=== PATIENT | female | born 1940 | race Caucasian/White ===

== ENCOUNTER 2020-09-23 05:09 | Inpatient (IN) | payer MEDICARE, OTHER ==
[2020-09-23] MEDS ORDERED: LABETALOL 5 MG/ML VIAL MDV IVP STA (05:47)
[2020-09-23 06:15] LABS: Basophils # (A) 0.1 k/uL (0-0.2); Basophils % (A) 1 %; Eosinophils # (A) 0.3 k/uL (0-0.7); Eosinophils % (A) 4 %; HCT 36.3 % (34.0-46.0); HGB 12.7 gm/dL (11.4-16.0); Lymphocytes # (A) 1.3 k/uL (1.0-4.8); Lymphocytes % (A) 19 %; MCH 33.5 pg (25.0-35.0); MCHC 35.1 g/dL (31.0-37.0); MCV 95.5 fL (80.0-100.0); Mean Platelet Volume 9.3; Monocytes # (A) 0.4 k/uL (0-1.0); Monocytes % (A) 5 %; Neutrophils % (A) 71 %; Platelet Count 173 k/uL (150-450); RDW 13.1 % (11.5-15.5); WBC 7.1 k/uL (3.8-10.6)
[2020-09-23] MEDS ORDERED: DILTIAZEM DRIP BOLUS FROM BAG 1 MG SOLN IV ONE (06:18)
--- NOTE | 2020-09-23 06:19 | XR ---
EXAMINATION TYPE: XR chest 2V DATE OF EXAM: 09/23/2020 COMPARISON: NONE HISTORY: Difficulty in breathing. TECHNIQUE: Frontal and lateral views of the chest are obtained. FINDINGS: There is background Chronic emphysematous change with increased multifocal opacities bilat erally greatest in the lower lungs and periphery left lung. No pleural effusion or pneumothorax seen bilaterally. The cardiac silhouette size is upper limits of normal. Surgical change bilateral should ers is partially imaged. Bridging osteophytes thoracic spine noted. IMPRESSION: Chronic changes with bilateral multifocal acute infiltrates. Correlate for covid 19 infe ction.
[2020-09-23 06:27] LABS: Albumin 3.9 g/dL (3.5-5.0); Calcium 9.9 mg/dL (8.4-10.2); Magnesium 1.7 mg/dL (1.6-2.3); Potassium 4.4 mmol/L (3.5-5.1); Total Protein 7.3 g/dL (6.3-8.2)
[2020-09-23] MEDS ORDERED: DILTIAZEM 125 MG in SODIUM CHLORIDE 0.9% 100 ML IV SCH (06:30)
--- NOTE | 2020-09-23 06:38 | ED ---
SOB HPI - General Chief Complaint: Abdominal Pain Stated Complaint: Abd Pain Time Seen by Provider: 09/23/20 05:26 Source: patient, family Mode of arrival: ambulatory Limitations: no limitations - History of Present Illness Initial Comments: This patient is an 80-year-old woman who presents to be evaluated for shortness of breath. Patient states that it had been mild for couple of days and then became more severe over the course of tonight. She states she does have underlying history of COPD. She has a little bit of nonproductive cough she states not different than usual. No fever or chills. No chest pain. No leg pain or swelling. In the triage area she had also describes some burning abdominal discomfort and when I asked her about this she indicates the abdominal wall pointing to where she has obviously had some subcutaneous injections. She states that she had been in the hospital from early August until September 09 for a mild stroke. MD Complaint: shortness of breath -: days(s) Severity scale (1-10): 0 Consistency: constant Improves With: nothing Worsens With: nothing Known History Of: COPD Treatments Prior to Arrival: none - Related Data Allergies Allergy/AdvReac Type Severity Reaction Status Date / Time No Known Allergies Allergy Verified 09/23/20 05:17 Review of Systems ROS Statement: Those systems with pertinent positive or pertinent negative responses have been documented in the HPI. ROS Other: All systems not noted in ROS Statement are negative. Constitutional: Denies: fever, chills, weakness Respiratory: Reports: cough, dyspnea, wheezes. Denies: hemoptysis, stridor Cardiovascular: Denies: chest pain, palpitations, orthopnea, edema, syncope Gastrointestinal: Reports: as per HPI, abdominal pain. Denies: nausea, vomiting, diarrhea, constipation, melena, hematochezia Genitourinary: Denies: dysuria, hematuria, discharge Musculoskeletal: Denies: back pain Skin: Denies: rash Neurological: Denies: headache, weakness, numbness, paresthesias Past Medical History Past Medical History: CVA/TIA, Hypertension History of Any Multi-Drug Resistant Organisms: None Reported Past Surgical History: Joint Replacement, Orthopedic Surgery Past Psychological History: No Psychological Hx Reported Smoking Status: Never smoker Past Alcohol Use History: Occasional Past Drug Use History: None Reported General Exam Limitations: no limitations General appearance: alert, in no apparent distress Head exam: Present: atraumatic, normocephalic Eye exam: Present: normal appearance. Absent: scleral icterus, conjunctival injection Neck exam: Present: normal inspection, full ROM Respiratory exam: Present: normal lung sounds bilaterally. Absent: respiratory distress, wheezes, rales, rhonchi, stridor, accessory muscle use, decreased breath sounds, prolonged expiratory Cardiovascular Exam: Present: tachycardia, irregular rhythm, normal heart sounds. Absent: systolic murmur, diastolic murmur, rubs, gallop GI/Abdominal exam: Present: soft, other (There are areas of ecchymosis consistent with previous subcutaneous injection in the abdominal wall. These are minimally tender. There is no deep tenderness.). Absent: distended, tenderness, guarding, rebound, rigid, mass Extremities exam: Present: normal inspection, normal capillary refill. Absent: pedal edema, calf tenderness Back exam: Present: normal inspection. Absent: CVA tenderness (R), CVA tenderness (L) Neurological exam: Present: alert Skin exam: Present: warm, dry, intact, normal color. Absent: rash Course Vital Signs 09/23/20 09/23/20 09/23/20 05:09 05:58 06:14 Temperature 98.4 F Pulse Rate 122 H 118 H 125 H Respiratory 26 H 18 18 Rate Blood Pressure 185/124 124/92 136/92 O2 Sat by Pulse 97 95 95 Oximetry Medical Decision Making - Lab Data Result diagrams: 09/23/20 05:55 09/23/20 05:55 Lab Results 09/23/20 09/23/20 09/23/20 Range/Units 05:55 05:55 05:55 WBC 7.1 (3.8-10.6) k/uL RBC 3.80 (3.80-5.40) m/uL Hgb 12.7 (11.4-16.0) gm/dL Hct 36.3 (34.0-46.0) % MCV 95.5 (80.0-100.0) fL MCH 33.5 (25.0-35.0) pg MCHC 35.1 (31.0-37.0) g/dL RDW 13.1 (11.5-15.5) % Plt Count 173 (150-450) k/uL MPV 9.3 Neutrophils % 71 % Lymphocytes % 19 % Monocytes % 5 % Eosinophils % 4 % Basophils % 1 % Neutrophils # 5.0 (1.3-7.7) k/uL Lymphocytes # 1.3 (1.0-4.8) k/uL Monocytes # 0.4 (0-1.0) k/uL Eosinophils # 0.3 (0-0.7) k/uL Basophils # 0.1 (0-0.2) k/uL Sodium 138 (137-145) mmol/L Potassium 4.4 (3.5-5.1) mmol/L Chloride 107 (98-107) mmol/L Carbon Dioxide 23 (22-30) mmol/L Anion Gap 8 mmol/L BUN 13 (7-17) mg/dL Creatinine 0.92 (0.52-1.04) mg/dL Est GFR (CKD-EPI)AfAm 68 (>60 ml/min/1.73 sqM) Est GFR (CKD-EPI)NonAf 59 (>60 ml/min/1.73 sqM) Glucose 141 H (74-99) mg/dL Plasma Lactic Acid Buck 1.8 (0.7-2.0) mmol/L Calcium 9.9 (8.4-10.2) mg/dL Magnesium 1.7 (1.6-2.3) mg/dL Total Bilirubin 1.0 (0.2-1.3) mg/dL AST 51 H (14-36) U/L ALT 55 H (4-34) U/L Alkaline Phosphatase 63 (38-126) U/L Troponin I (0.000-0.034) ng/mL NT-Pro-B Natriuret Pep pg/mL Total Protein 7.3 (6.3-8.2) g/dL Albumin 3.9 (3.5-5.0) g/dL Coronavirus (PCR) (Not Detectd) 09/23/20 09/23/20 09/23/20 Range/Units 05:55 05:55 06:04 WBC (3.8-10.6) k/uL RBC (3.80-5.40) m/uL Hgb (11.4-16.0) gm/dL Hct (34.0-46.0) % MCV (80.0-100.0) fL MCH (25.0-35.0) pg MCHC (31.0-37.0) g/dL RDW (11.5-15.5) % Plt Count (150-450) k/uL MPV Neutrophils % % Lymphocytes % % Monocytes % % Eosinophils % % Basophils % % Neutrophils # (1.3-7.7) k/uL Lymphocytes # (1.0-4.8) k/uL Monocytes # (0-1.0) k/uL Eosinophils # (0-0.7) k/uL Basophils # (0-0.2) k/uL Sodium (137-145) mmol/L Potassium (3.5-5.1) mmol/L Chloride (98-107) mmol/L Carbon Dioxide (22-30) mmol/L Anion Gap mmol/L BUN (7-17) mg/dL Creatinine (0.52-1.04) mg/dL Est GFR (CKD-EPI)AfAm (>60 ml/min/1.73 sqM) Est GFR (CKD-EPI)NonAf (>60 ml/min/1.73 sqM) Glucose (74-99) mg/dL Plasma Lactic Acid Buck (0.7-2.0) mmol/L Calcium (8.4-10.2) mg/dL Magnesium (1.6-2.3) mg/dL Total Bilirubin (0.2-1.3) mg/dL AST (14-36) U/L ALT (4-34) U/L Alkaline Phosphatase (38-126) U/L Troponin I <0.012 (0.000-0.034) ng/mL NT-Pro-B Natriuret Pep 3650 pg/mL Total Protein (6.3-8.2) g/dL Albumin (3.5-5.0) g/dL Coronavirus (PCR) Not Detected (Not Detectd) - EKG Data -: EKG Interpreted by Nv EKG shows normal: axis (Normal), intervals (Normal), QRS complexes (Normal) Rate: tachycardia (Rate approximately 128 bpm) Interpretation: nonspecific ST-T wave changes, other (Underlying rhythm appears to be atrial fibrillation with rapid ventricular rate.) Disposition Clinical Impression: Atrial fibrillation with rapid ventricular response, CHF (congestive heart failure) Narrative: New diagnosis Disposition: ADMITTED IP TO THIS HOSP Condition: Good Is patient prescribed a controlled substance at d/c from ED?: No Referrals: Jaky Sheridan MD [Primary Care Provider] - 1-2 days
[2020-09-23] MEDS ORDERED: NITROGLYCERIN SL TABS 0.4 MG TAB SUBLINGUAL PRN (06:43)
[2020-09-23 07:29] LABS: Prothrombin Time 10.5 sec (9.0-12.0)
[2020-09-23 07:52] LABS: Partial Thromboplastin Time 18.3 sec (22.0-30.0)
[2020-09-23 07:54] LABS: D-Dimer 0.76 mg/L FEU (<0.60)
[2020-09-23 08:05] LABS: Appearance,Urine Clear (Clear); Bacteria,Urine Rare /hpf; Bilirubin,Urine Negative (Negative); Blood,Urine Negative (Negative); Color,Urine Yellow; Glucose,Urine (UA) Negative (Negative); Ketones,Urine Negative (Negative); Leukocyte Esterase,Urine Moderate (Negative); Nitrite,Urine Negative (Negative); PH, Urine 6.5 (5.0-8.0); Protein,Urine Trace (Negative); Specific Gravity,Urine 1.006 (1.001-1.035); Squamous Epithelial Cell,Urine 1 /hpf (0-4); Urobilinogen,Urine <2.0 mg/dL (<2.0); WBC,Urine 1 /hpf (0-5)
[2020-09-23] MEDS ORDERED: LOSARTAN 50 MG TAB PO SCH (10:00)
[2020-09-23] MEDS: APIXABAN 5 MG TAB PO SCH ×2 (11:05→20:30)
[2020-09-23] MEDS: METOPROLOL TARTRATE 50 MG TAB PO SCH ×2 (11:05→20:30)
--- NOTE | 2020-09-23 11:21 | ECHOF ---
Referral Reason:New a. fib. with CHF MEASUREMENTS -------- HEIGHT: 149.9 cm WEIGHT: 80.7 kg BP: 152/87 RVIDd: 2.9 cm (< 3.3) IVSd: 1.4 cm (0.6 - 1.1) LVIDd: 3.7 cm (3.9 - 5.3) LVPWd: 1.3 cm (0.6 - 1.1) IVSs: 1.8 cm LVIDs: 2.9 cm LVPWs: 1.5 cm LA Diam: 4.0 cm (2.7 - 3.8) LAESV Index (A-L): 34.20 ml/m Ao Diam: 2.7 cm (2.0 - 3.7) AV Cusp: 1.9 cm (1.5 - 2.6) MV EXCURSION: 17.838 mm (> 18.000) MV EF SLOPE: 67 mm/s (70 - 150) EPSS: 0.8 cm RAP: 5.00 mmHg RVSP: 44.19 mmHg FINDINGS -------- Atrial fibrillation. This was a technically adequate study. The left ventricular size is normal. There is moderate concentric left ventricular hypertrophy. O verall left ventricular systolic function is moderately impaired with, an EF between 35 - 40 %. The right ventricle is normal in size. LA is moderately dilated 34-39 ml/m2 The right atrium is normal in size. Interatrial and interventricular septum intact. The aortic valve is trileaflet and appears structurally normal. Mild mitral annular calcification present. Mild mitral regurgitation is present. Mild tricuspid regurgitation present. There is mild pulmonary hypertension. The right ventricular systolic pressure, as measured by Doppler, is 44.19mmHg. Trace/mild (physiologic) pulmonic regurgitation. The aortic root size is normal. Normal inferior vena cava with normal inspiratory collapse consistent with estimated right atrial pre ssure of 5 mmHg. There is no pericardial effusion. CONCLUSIONS -------- 1. The left ventricular size is normal. 2. There is moderate concentric left ventricular hypertrophy. 3. Overall left ventricular systolic function is moderately impaired with, an EF between 35 - 40 %. 4. LA is moderately dilated 34-39 ml/m2 5. Mild mitral annular calcification present. 6. Mild mitral regurgitation is present. 7. Mild tricuspid regurgitation present. 8. There is mild pulmonary hypertension. 9. The right ventricular systolic pressure, as measured by Doppler, is 44.19mmHg. 10. Trace/mild (physiologic) pulmonic regurgitation. 11. There is no pericardial effusion. 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
--- NOTE | 2020-09-23 11:25 | CONS ---
CONSULTATION Mrs. Willoughby is an 80-year-old female with known history of hypertension who presented with abdominal discomfort. In the emergency room, she was noted to be in atrial fibrillation. The patient was recently admitted to [facility] with discomfort behind her right eye and was told that she had a stroke. It appears that she was in atrial fibrillation because she was getting abdominal injection for anticoagulation, probably Lovenox or heparin and was told that she was to go home on Eliquis, but was never prescribed. Her main complaint is the discomfort in the abdomen. She also complains of dyspnea on exertion that is getting worse. She was told that she has emphysema, although she never smoked. She has history of allergy. She denies any history of cardiac disease. She has occasional palpitation. No syncope. She has some palpitation. She has no PND, orthopnea, rare peripheral edema. She has not been seen by Cardiology in the recent past and has not had any recent cardiac workup. Her coronary risk factors are remarkable for hypertension. She is nonsmoker, nondiabetic. Her lipid profile is not available. MEDICATIONS: Her medications include hydrochlorothiazide, verapamil 240 mg daily, losartan 100 mg daily and gabapentin. REVIEW OF SYSTEMS: RESPIRATORY SYSTEM: She has dyspnea on exertion. She has a history of cough. GI SYSTEM: She has no recent GI bleeding. No peptic ulcer disease. SYSTEM: She has the possible history of stroke as noted. PHYSICAL EXAMINATION: She is an 80-year-old female, alert, oriented, in no apparent distress. Blood pressure running in the 150s over 90s with the heart rate in the low 100. HEAD: Normocephalic. EYES: Sclerae anicteric. NECK: Good carotid upstroke. No bruit. No jugular venous distention. LUNGS: Clear to auscultation. HEART: Irregular, irregular, S1, S2. No S3. No rub or gallop appreciated. ABDOMEN: Soft, nontender. Positive bowel sounds. No organomegaly. Ecchymosis noted at the site of prior injection. EXTREMITIES: Trace edema. LAB DATA: Lab data revealed troponin less than 0.012. BUN and creatinine of 13 and 0.92. Potassium 4.4. D-dimer 0.76. Hemoglobin 12.7. NT proBNP of 3650. EKG revealed an atrial fibrillation with rate [address]-T wave changes. Chest x-ray shows bilateral infiltrate. IMPRESSION: 1. Atrial fibrillation, probably not acute. Most likely was diagnosed recently at [place] although the records are not available. The patient not anticoagulated at this time. 2. Possible recent stroke. 3. History of hypertension. 4. Progressive dyspnea. 5. Elevation of the NT proBNP. RECOMMENDATION: From the cardiac standpoint, I will initiate treatment with anticoagulation. I will obtain echocardiogram with Doppler. I will start her on IV Lasix and restart losartan and I will also start her on a beta amrik. I will try to obtain the records from [facility] and depending on the results of testing, further recommendation will be made. Thank you for this consult. We will follow with you. MMJOSE FL / IJN: [id number] /
[2020-09-23] MEDS: ACETAMINOPHEN TAB 325 MG TAB PO PRN (12:17)
[2020-09-23] MEDS: FUROSEMIDE 10 MG/ML 2 ML VIAL IV SCH ×2 (14:56→20:33)
--- NOTE | 2020-09-23 22:18 | P.HPIM ---
History of Present Illness H&P Date: 09/23/20 Chief Complaint: short of breath History of presenting complaint: This is a pleasant 80-year-old patient of Dr. Sheridan. Patient presents with shortness of breath. No edema. Putting out clear mucus. Denies any fever and chills. Also complaining of irregular heartbeat. No chest pain. Patient was recently no [facility]. Diagnosis unclear. No orthopnea. Denies any dizziness or lightheadedness. Review of systems: GEN.: Tired EYES: None HEENT: None NECK: None RESPIRATORY: As above CARDIOVASCULAR: As above GASTROINTESTINAL: None GENITOURINARY: None MUSCULOSKELETAL: Joint pains LYMPHATICS: None HEMATOLOGICAL: None PSYCHIATRY: None NEUROLOGICAL: Trouble sleeping Past medical history to include: Hypertension, osteoarthritis, insomnia Social history: No smoking. Alcohol occasionally. Lives alone. Family history: Reviewed, noncontributory to presentation Physical examination: VITAL SIGNS: 98.4, 122, 26, 124/92, 97% on room air GENERAL: BMI 36, sitting up in bed, bit tired. EYES: Pupils equal. Conjunctiva normal. HEENT: External appearance of nose and ears normal, oral cavity grossly normal. NECK: JVD not raised; masses not palpable. HEART: Heart sounds irregular; no edema. LUNGS: Respiratory rate increased, decreased breath sounds. ABDOMEN: Soft, nontender, liver spleen not palpable, no masses palpable. PSYCH: Alert and oriented x3; mood and affect normal MUSCULAR skeletal: Evidence of OA. NEUROLOGICAL: Cranial nerves grossly intact; no facial asymmetry, power and sensation grossly intact. LYMPHATICS: No lymph nodes palpable in the axilla and neck INVESTIGATIONS, reviewed in the clinical context: White count 7.1 hemoglobin 12.7 platelets 173 potassium 4.4 creatinine 0.9 to AST 51 ALT 55 Troponin I less than 0.0122 ProBNP 3650 TSH 1.3 Coronavirus PCR-not detected EKG tracing personally reviewed by me-atrial flutter fibrillation with a rate of 128 Chest x-ray film personally reviewed by me-cardiomegaly with venous prominence 2-D echocardiogram-moderate concentric LVH, EF 35 and 40% Assessment: -New onset atrial fibrillation with a rapid ventricle rate -Acute congestive heart failure from systolic dysfunction EF 35-40% with a possible contribution from atrial fibrillation -Hypertensive heart disease Plan: Patient is put on a Cardizem drip in the ER. Home medications resumed. Started on beta amrik this morning. Also put on IV Lasix. Care was discussed with the patient and questions answered. At some point down the road patient needed cardiac catheterization to evaluate systolic dysfunction. Cardiology consulted. Past Medical History Past Medical History: CVA/TIA, Hypertension Additional Past Medical History / Comment(s): DC'd from [facility] for Stroke on 09/09 History of Any Multi-Drug Resistant Organisms: None Reported Past Surgical History: Joint Replacement, Orthopedic Surgery Past Anesthesia/Blood Transfusion Reactions: No Reported Reaction Past Psychological History: No Psychological Hx Reported Smoking Status: Never smoker Past Alcohol Use History: Occasional Past Drug Use History: None Reported - Past Family History Mother Family Medical History: No Reported History Father Family Medical History: No Reported History Medications and Allergies Home Medications Medication Instructions Recorded Confirmed Type Gabapentin [Neurontin] 100 mg PO BID PRN 09/23/20 09/23/20 History Losartan Potassium 100 mg PO DAILY 09/23/20 09/23/20 History Verapamil Sr [Isoptin Sr] 240 mg PO DAILY 09/23/20 09/23/20 History hydroCHLOROthiazide [Hydrodiuril] 25 mg PO DAILY 09/23/20 09/23/20 History Allergies Allergy/AdvReac Type Severity Reaction Status Date / Time codeine AdvReac Vision Verified 09/23/20 08:03 Disturbance Physical Exam Vitals: Vital Signs Temp Pulse Pulse Resp BP BP Pulse Ox 09/23/20 09:00 98.2 F 103 H 20 156/99 95 09/23/20 07:38 98.6 F 105 H 20 152/87 95 09/23/20 07:05 97 18 152/87 95 09/23/20 06:14 125 H 18 136/92 95 09/23/20 05:58 118 H 18 124/92 95 09/23/20 05:09 98.4 F 122 H 26 H 185/124 97 Intake and Output 09/22/20 09/23/20 09/23/20 22:59 06:59 14:59 Intake Total 236 Balance 236 Intake: Oral 236 Other: Weight 80.921 kg 80.921 kg Results CBC & Chem 7: 09/23/20 05:55 09/23/20 05:55 Labs: Abnormal Lab Results - Last 24 Hours (Table) 09/23/20 09/23/20 09/23/20 Range/Units 05:55 06:33 07:51 APTT 18.3 L (22.0-30.0) sec D-Dimer 0.76 H (<0.60) mg/L FEU Glucose 141 H (74-99) mg/dL AST 51 H (14-36) U/L ALT 55 H (4-34) U/L Urine Protein Trace H (Negative) Ur Leukocyte Esterase Moderate H (Negative) Urine Bacteria Rare H (None) /hpf Thrombosis Risk Factor Assmnt - Choose All That Apply Any of the Below Risk Factors Present?: Yes Each Factor Represents 1 point: Obesity (BMI >25) Each Risk Factor Represents 3 Points: Age 75 years or older Thrombosis Risk Factor Assessment Total Risk Factor Score: 4 Thrombosis Risk Factor Assessment Level: Moderate Risk
[2020-09-24] MEDS: ACETAMINOPHEN TAB 325 MG TAB PO PRN (03:57)
[2020-09-24] MEDS ORDERED: ASPIRIN 325 MG TAB PO SCH (09:00)
[2020-09-24] MEDS: METOPROLOL TARTRATE 50 MG TAB PO SCH ×3 (09:11→20:33)
[2020-09-24] MEDS: LOSARTAN 50 MG TAB PO SCH (09:11)
[2020-09-24] MEDS: hydroCHLOROthiazide 25 MG TAB PO SCH (09:12)
[2020-09-24] MEDS: APIXABAN 5 MG TAB PO SCH ×2 (09:12→20:33)
[2020-09-24 09:29] LABS: Calcium 9.8 mg/dL (8.4-10.2)
--- NOTE | 2020-09-24 09:50 | PN ---
PROGRESS NOTE Mrs. Willoughby is an 80-year-old female who presented with symptoms of dyspnea and abdominal discomfort. She was in atrial fibrillation. After reviewing the EKG from [facility], it was noted that she was in atrial fibrillation at that time. She denies any chest discomfort. She denies any dizziness. Her breathing is stable. She had an echocardiogram done yesterday that showed an ejection fraction of 35% to 40% of unknown duration. Patient has no recollection of prior cardiac history. She is feeling well this morning. She denies any chest pain. She denies any dizziness or palpitation. She denies any nausea. She continues to be in atrial fibrillation with episode of rapid ventricular response. She continued to be on Eliquis 5 mg twice a day, Lasix 20 mg IV q.12 hours, losartan 50 mg daily, and metoprolol tartrate 50 mg twice a day. PHYSICAL EXAMINATION: Blood pressure running in the 150s with the heart rate in the high 90s to low 100s. LUNGS: Clear. HEART: Irregular, irregular. S1, S2. No S3. No rub. ABDOMEN: Soft, nontender. EXTREMITIES: No edema. LAB DATA: Lab data from this morning are pending. IMPRESSION: 1. Atrial fibrillation was diagnosed on recent admission at [facility]. 2. Possible cerebrovascular accident during that admission. 3. Hypertension. 4. Cardiomyopathy of unclear duration or etiology. 5. Abdominal pain, probably related to the subcutaneous injections. RECOMMENDATION: From the cardiac standpoint, I will stop the IV Lasix and start hydrochlorothiazide on her, increase the dose of her losartan and metoprolol. Increase her level of activity. She remains stable. I would expect she should be able to be discharged home in the next 24 hours. MMODL / IJN: [id number] /
--- NOTE | 2020-09-24 16:11 | CDI ---
Documentation Clarification Form Date: 09/24/2020 03:54:04 PM From: Hailey Delgado RN, CCDS Admit Date: 09/23/2020 06:43:00 AM Patient Name: Huma Willoughby Visit Number: [id number] Discharge Date: ATTENTION: The Clinical Documentation Specialists (CDI) and [facility] Coding Staff appreciate your assistance in clarifying documentation. Please respond to the clarification below the line at the bottom and electronically sign. The CDI & [facility] Coding staff will review the response and follow-up if needed. Please note: Queries are made part of the Legal Health Record. If you have any questions, please contact the author of this message via ITS. Dr. Dolores Matias Atrial Fibrillation is documented in the ED assessment on 09/23, H/P and cardiology consult. Please render your opinion on the type of atrial fibrillation you are treating. History/Risk Factors: CVA, TIA, Hypertension Clinical Indicators: 80-year-old female presents on 09/23 for evaluation for shortness of breath. 09/23 EKG/telemetry: Atrial fibrillation with rapid ventricular response at 128 bpm. 09/23 Vital signs on admission at 05:09 185/124 122 26 98.4 97 % Treatment: Cardizem 10 mg IV bolus Lopressor 50 mg po tid Eliquis 5 mg bid Losartan 100 mg daily In your professional opinion, can you please clarify the type of Atrial Fibrillation, if known? Chronic/Permanent Paroxysmal Persistent XXXX Other, please specify Unable to determine (Last Revision: December 2017) MTDD
--- NOTE | 2020-09-24 21:42 | P.PN ---
Progress Note - Text Progress Note Date: 09/24/20 Chief Complaint: short of breath History of presenting complaint: This is a pleasant 80-year-old patient of Dr. Sheridan. Patient presents with shortness of breath. No edema. Putting out clear mucus. Denies any fever and chills. Also complaining of irregular heartbeat. No chest pain. Patient was recently at [facility]. Diagnosis unclear. No orthopnea. Denies any dizziness or lightheadedness. Admitted with atrial fibrillation with a rapid ventricular rate, acute CHF exacerbations EF of 35-40%. Given IV Lasix. Initially put on IV Cardizem drip. Today-feeling better. Breathing is better. Some clear sputum. Oral intake fair. Review of systems: Was done for constitutional, cardiovascular, GI, pulmonary. relevant finding as above Active Medications Acetaminophen (Acetaminophen Tab 325 Mg Tab) 650 mg PO Q4HR PRN PRN Reason: Fever and/ or Mild Pain Last Admin: 09/24/20 03:57 Dose: 650 mg Documented by: Apixaban (Apixaban 5 Mg Tab) 5 mg PO BID [facility] Last Admin: 09/24/20 20:33 Dose: 5 mg Documented by: Hydrochlorothiazide (Hydrochlorothiazide 25 Mg Tab) 25 mg PO DAILY [facility] Last Admin: 09/24/20 09:12 Dose: 25 mg Documented by: Losartan Potassium (Losartan 50 Mg Tab) 100 mg PO DAILY [facility] Last Admin: 09/24/20 09:11 Dose: 100 mg Documented by: Metoprolol Tartrate (Metoprolol Tartrate 50 Mg Tab) 50 mg PO TID [facility] Last Admin: 09/24/20 20:33 Dose: 50 mg Documented by: Nitroglycerin (Nitroglycerin Sl Tabs 0.4 Mg Tab) 0.4 mg SUBLINGUAL Q5M PRN PRN Reason: Chest Pain Past medical history to include: Hypertension, osteoarthritis, insomnia Social history: No smoking. Alcohol occasionally. Lives alone. Family history: Reviewed, noncontributory to presentation Physical examination: VITAL SIGNS: 97.9, 94, 20, 1 3699, 100% room air GENERAL: BMI 36, sitting up in bed, looking better EYES: Pupils equal. Conjunctiva normal. HEENT: External appearance of nose and ears normal, oral cavity grossly normal. NECK: JVD not raised; masses not palpable. HEART: Heart sounds irregular; no edema. LUNGS: Respiratory rate normal, decreased breath sounds. ABDOMEN: Soft, nontender, liver spleen not palpable, no masses palpable. PSYCH: Alert and oriented x3; mood and affect normal MUSCULAR skeletal: Evidence of OA. INVESTIGATIONS, reviewed in the clinical context: September 24: Potassium 4 creatinine 0.95 LDL 108 White count 7.1 hemoglobin 12.7 platelets 173 potassium 4.4 creatinine 0.9 to AST 51 ALT 55 Troponin I less than 0.0122 ProBNP 3650 TSH 1.3 Coronavirus PCR-not detected EKG tracing personally reviewed by me-atrial flutter fibrillation with a rate of 128 Chest x-ray film personally reviewed by me-cardiomegaly with venous prominence 2-D echocardiogram-moderate concentric LVH, EF 35 and 40% Assessment: -New onset atrial fibrillation with a rapid ventricle rate-now better controlled -Acute congestive heart failure from systolic dysfunction EF 35-40% with a possible contribution from atrial fibrillation-improving -Hypertensive heart disease Plan: Patient started eliquis, Cozaar, Lopressor 50 mg 3 times a day. Discussed with the patient. Encouraged to be out of bed. Check a proBNP in the morning.
[2020-09-25 08:29] LABS: Calcium 9.8 mg/dL (8.4-10.2)
[2020-09-25 08:54] VITALS: TEMP 97.9
[2020-09-25] MEDS: APIXABAN 5 MG TAB PO SCH (08:59)
[2020-09-25] MEDS: hydroCHLOROthiazide 25 MG TAB PO SCH (08:59)
[2020-09-25] MEDS: METOPROLOL TARTRATE 50 MG TAB PO SCH (08:59)
[2020-09-25] MEDS: LOSARTAN 50 MG TAB PO SCH (08:59)
[2020-09-25] MEDS ORDERED: SPIRONOLACTONE 25 MG TAB PO SCH (09:00)
--- NOTE | 2020-09-25 12:00 | PN ---
PROGRESS NOTE Mrs. Willoughby is an 80-year-old female who presented with abdominal pain and evidence of atrial fibrillation that was noted while she was in [facility]. She is feeling well this morning ambulating without difficulty. Her echocardiogram showed evidence of moderate cardiomyopathy with no segmental wall motion abnormality. She has been started on anticoagulation and her ventricular response is under better control. She continued to be on Eliquis 5 mg twice a day, hydrochlorothiazide 25 mg daily, losartan 100 mg daily, metoprolol tartrate 50 mg 3 times a day and spironolactone 25 mg daily. PHYSICAL EXAMINATION: Blood pressure 134/70 with the heart rate in the 90s. LUNGS: Clear. HEART: Irregular, irregular. S1, S2. No S3. No rub. ABDOMEN: Soft, nontender. EXTREMITIES: No edema. LAB DATA: Lab data revealed her NT proBNP down to 2430. Her cholesterol is 170, LDL 108. BUN and creatinine of 14 and 0.94. IMPRESSION: 1. Atrial fibrillation, her rate under better control, anticoagulated. 2. Hypertension. 3. Possible stroke. 4. Cardiomyopathy with evidence of heart failure, improving. RECOMMENDATION: From the cardiac standpoint, she should be able to be discharged home on the present medical regimen and followed as an outpatient to undergo further cardiac workup. MMODL / IJN: [id number] /
[2020-09-25 12:10] VITALS: BP 144/85; PULSE 92; RESP 16
--- NOTE | 2020-09-25 23:55 | P.DS ---
Providers Date of admission: 09/23/20 06:43 Expected date of discharge: 09/25/20 Attending physician: Juan Gaytan Consults: 09/23/20 06:43 Consult Physician Routine Consulting Provider: Lotus Gillespie Consult Reason/Comments: New-onset atrial fibrillation with RVR Do you want consulting provider notified?: Yes Primary care physician: Jaky Sheridan [facility] Course: Chief Complaint: short of breath History of presenting complaint: This is a pleasant 80-year-old patient of Dr. Sheridan. Patient presents with shortness of breath. No edema. Putting out clear mucus. Denies any fever and chills. Also complaining of irregular heartbeat. No chest pain. Patient was recently at [facility]. Diagnosis unclear. No orthopnea. Denies any dizziness or lightheadedness. Admitted with atrial fibrillation with a rapid ventricular rate, acute CHF exacerbations EF of 35-40%. Given IV Lasix. Initially put on IV Cardizem drip. Today-doing much better. Breathing control. Heart rate controlled. Cleared by cardiology Consultation: Dr. Matias from cardiology Past medical history to include: Hypertension, osteoarthritis, insomnia Social history: No smoking. Alcohol occasionally. Lives alone. Family history: Reviewed, noncontributory to presentation Physical examination: VITAL SIGNS: 97.9, 92, 16, 144/85, 97% room air GENERAL: BMI 36, sitting up in bed, comfortable EYES: Pupils equal. Conjunctiva normal. HEENT: External appearance of nose and ears normal, oral cavity grossly normal. NECK: JVD not raised; masses not palpable. HEART: Heart sounds irregular; no edema. LUNGS: Respiratory rate normal, decreased breath sounds. ABDOMEN: Soft, nontender, liver spleen not palpable, no masses palpable. PSYCH: Alert and oriented x3; mood and affect normal MUSCULAR skeletal: Evidence of OA. INVESTIGATIONS, reviewed in the clinical context: September 25: Potassium 4 creatinine 0.94 BNP 2430 September 24: Potassium 4 creatinine 0.95 LDL 108 White count 7.1 hemoglobin 12.7 platelets 173 potassium 4.4 creatinine 0.9 to AST 51 ALT 55 Troponin I less than 0.0122 ProBNP 3650 TSH 1.3 Coronavirus PCR-not detected EKG tracing personally reviewed by me-atrial flutter fibrillation with a rate of 128 Chest x-ray film personally reviewed by me-cardiomegaly with venous prominence 2-D echocardiogram-moderate concentric LVH, EF 35 and 40% Assessment: -New onset atrial fibrillation with a rapid ventricle rate- -Acute congestive heart failure from systolic dysfunction EF 35-40% with a possible contribution from atrial fibrillation- -Hypertensive heart disease Disposition: Home Patient Condition at Discharge: Stable Plan - Discharge Summary Discharge Rx Participant: No New Discharge Prescriptions: New Apixaban [Eliquis] 5 mg PO BID #60 tab Spironolactone [Aldactone] 25 mg PO DAILY #30 tab Metoprolol Tartrate [Lopressor] 50 mg PO TID #90 tab Continue Losartan Potassium 100 mg PO DAILY Gabapentin [Neurontin] 100 mg PO BID PRN PRN Reason: Pain Discontinued hydroCHLOROthiazide [Hydrodiuril] 25 mg PO DAILY Verapamil Sr [Isoptin Sr] 240 mg PO DAILY Discharge Medication List Gabapentin [Neurontin] 100 mg PO BID PRN 09/23/20 [History] Losartan Potassium 100 mg PO DAILY 09/23/20 [History] Apixaban [Eliquis] 5 mg PO BID #60 tab 09/24/20 [Rx] Metoprolol Tartrate [Lopressor] 50 mg PO TID #90 tab 09/25/20 [Rx] Spironolactone [Aldactone] 25 mg PO DAILY #30 tab 09/25/20 [Rx] Follow up Appointment(s)/Referral(s): Dolores Matias MD [STAFF PHYSICIAN] - 2 Weeks (Office will call you in the next day or two to schedule an appointment.) Jaky Sheridan MD [Primary Care Provider] - 1-2 days Patient Instructions/Handouts: A-fib (Atrial Fibrillation) (DC) Activity/Diet/Wound Care/Special Instructions: pts 30 day copy for Eliquis is $4 bmp - 1 week Discharge Disposition: HOME WITH HOSPICE
== END 2020-09-25 14:53 | disposition home or self-care (01) | DRG 291 ==
LOC: EC 05:09 → 3SCARD 06:43
PROVIDERS: ADMIT Hospitalist; ATTEND Hospitalist
DX: I11.0 Hypertensive heart disease with heart failure (principal); I50.21 Acute systolic (congestive) heart failure; I48.19 Other persistent atrial fibrillation; I48.92 Unspecified atrial flutter; I42.9 Cardiomyopathy, unspecified; J43.9 Emphysema, unspecified; Z79.01 Long term (current) use of anticoagulants; Z79.899 Other long term (current) drug therapy; Z86.73 Personal history of transient ischemic attack (TIA), and cerebral infarction without residual deficits; G47.00 Insomnia, unspecified; E66.9 Obesity, unspecified; Z68.37 Body mass index [BMI] 37.0-37.9, adult; Z60.2 Problems related to living alone; Z20.822 Contact with and (suspected) exposure to COVID-19
CPT/HCPCS: 36415; 71046; 80048; 80053; 80061; 81001; 83605; 83735; 83880; 84443; 84484; 85025; 85379; 85610; 85730; 87635; 93005; 93306; 96365; 96376; 99285

== ENCOUNTER 2020-09-28 23:27 | Emergency (ER) | payer MEDICARE, OTHER ==
--- NOTE | 2020-09-28 23:48 | ED ---
Arrhythmia/Palpitations HPI - General Chief Complaint: Arrhythmia/Palpitations Stated Complaint: Palpitations, Chest Pain Time Seen by Provider: 09/28/20 23:35 Source: patient, RN notes reviewed, old records reviewed Mode of arrival: wheelchair Limitations: no limitations - History of Present Illness Initial Comments: This is an 80-year-old female DF for evaluation patient Dese for palpitations. Patient recently as an inpatient for hospitalization regarding palpitations H a fibrillation with RVR. He should did stop taking blood pressure medication upon discharge patient is concerned that she was having heart racing and palpitations earlier in the day but upon arrival to the ER she has no complaints. No headache chest pain shortness breath or abdominal pain no recent fevers or shortness of breath MD Complaint: rapid heart beat, "heart racing", palpitations, atrial fibrillation (Patient does have history of atrial fibrillation) -: hour(s) Context: occurred during rest Arrhythmia History: atrial fibrillation Associated Symptoms: denies other symptoms Treatments Prior to Arrival: other (not taking her normal blood pressure medications) - Related Data Home Medications Medication Instructions Recorded Confirmed Gabapentin [Neurontin] 100 mg PO BID PRN 09/23/20 09/23/20 Losartan Potassium 100 mg PO DAILY 09/23/20 09/23/20 Previous Rx's Medication Instructions Recorded Apixaban [Eliquis] 5 mg PO BID #60 tab 09/24/20 Metoprolol Tartrate [Lopressor] 50 mg PO TID #90 tab 09/25/20 Spironolactone [Aldactone] 25 mg PO DAILY #30 tab 09/25/20 Allergies Allergy/AdvReac Type Severity Reaction Status Date / Time codeine AdvReac Vision Verified 09/28/20 23:37 Disturbance Review of Systems ROS Statement: Those systems with pertinent positive or pertinent negative responses have been documented in the HPI. ROS Other: All systems not noted in ROS Statement are negative. Past Medical History Past Medical History: CVA/TIA, Hypertension Additional Past Medical History / Comment(s): DC'd from [facility] for Stroke on 09/09 History of Any Multi-Drug Resistant Organisms: None Reported Past Surgical History: Joint Replacement, Orthopedic Surgery Past Anesthesia/Blood Transfusion Reactions: No Reported Reaction Past Psychological History: No Psychological Hx Reported Smoking Status: Never smoker Past Alcohol Use History: Occasional Past Drug Use History: None Reported - Past Family History Mother Family Medical History: No Reported History Father Family Medical History: No Reported History General Exam Limitations: no limitations General appearance: alert, in no apparent distress Head exam: Present: atraumatic, normocephalic, normal inspection Eye exam: Present: normal appearance, PERRL, EOMI. Absent: scleral icterus, conjunctival injection, periorbital swelling ENT exam: Present: normal exam, mucous membranes moist Neck exam: Present: normal inspection. Absent: tenderness, meningismus, lymphadenopathy Respiratory exam: Present: normal lung sounds bilaterally. Absent: respiratory distress, wheezes, rales, rhonchi, stridor Cardiovascular Exam: Present: regular rate, normal rhythm, normal heart sounds. Absent: systolic murmur, diastolic murmur, rubs, gallop, clicks GI/Abdominal exam: Present: soft, normal bowel sounds. Absent: distended, tenderness, guarding, rebound, rigid Extremities exam: Present: normal inspection, full ROM, normal capillary refill. Absent: tenderness, pedal edema, joint swelling, calf tenderness Back exam: Present: normal inspection Neurological exam: Present: alert, oriented X3, CN II-XII intact Psychiatric exam: Present: normal affect, normal mood Skin exam: Present: warm, dry, intact, normal color. Absent: rash Course Vital Signs 09/28/20 09/29/20 23:32 00:00 Temperature 97.9 F Pulse Rate 95 86 Respiratory 18 20 Rate Blood Pressure 156/102 145/90 O2 Sat by Pulse 96 96 Oximetry - Reevaluation(s) Reevaluation #1: 09/29/20 01:33 Medical record is reviewed Reevaluation #2: 09/29/20 01:33 Prior hospitalizations reviewed Reevaluation #3: 09/29/20 01:33 Patient feels well throughout entire ER stay Reevaluation #4: 09/29/20 01:33 Patient informed results and questions answered she feels good for EKG Findings - EKG Comments: EKG Findings:: EKG is A. fib 99, QRS 68 QTc 469 Medical Decision Making - Medical Decision Making 80 female DF for evaluation patient presents today for palpitations, concern for atrial fibrillation on blood pressure medications. Patient patient medically ER stay labwork is normal patient feels good. She prefers discharge - Lab Data Result diagrams: 09/28/20 23:56 01/11/21 23:56 Lab Results 09/28/20 09/28/20 09/28/20 Range/Units 23:56 23:56 23:56 WBC 5.4 (3.8-10.6) k/uL RBC 3.80 (3.80-5.40) m/uL Hgb 12.6 (11.4-16.0) gm/dL Hct 36.7 (34.0-46.0) % MCV 96.6 (80.0-100.0) fL MCH 33.1 (25.0-35.0) pg MCHC 34.2 (31.0-37.0) g/dL RDW 14.3 (11.5-15.5) % Plt Count 169 (150-450) k/uL MPV 8.9 Neutrophils % 53 % Lymphocytes % 31 % Monocytes % 6 % Eosinophils % 7 % Basophils % 1 % Neutrophils # 2.9 (1.3-7.7) k/uL Lymphocytes # 1.7 (1.0-4.8) k/uL Monocytes # 0.3 (0-1.0) k/uL Eosinophils # 0.4 (0-0.7) k/uL Basophils # 0.1 (0-0.2) k/uL PT 11.2 (9.0-12.0) sec INR 1.1 (<1.2) APTT 23.2 (22.0-30.0) sec Sodium 137 (137-145) mmol/L Potassium 4.0 (3.5-5.1) mmol/L Chloride 106 (98-107) mmol/L Carbon Dioxide 23 (22-30) mmol/L Anion Gap 8 mmol/L BUN 22 H (7-17) mg/dL Creatinine 0.88 (0.52-1.04) mg/dL Est GFR (CKD-EPI)AfAm 72 (>60 ml/min/1.73 sqM) Est GFR (CKD-EPI)NonAf 63 (>60 ml/min/1.73 sqM) Glucose 124 H (74-99) mg/dL Calcium 9.6 (8.4-10.2) mg/dL Magnesium 1.7 (1.6-2.3) mg/dL Total Bilirubin 0.5 (0.2-1.3) mg/dL AST 63 H (14-36) U/L ALT 60 H (4-34) U/L Alkaline Phosphatase 55 (38-126) U/L Creatine Kinase 60 (30-135) U/L Troponin I (0.000-0.034) ng/mL NT-Pro-B Natriuret Pep pg/mL Total Protein 7.1 (6.3-8.2) g/dL Albumin 3.8 (3.5-5.0) g/dL Lipase 261 (23-300) U/L 09/28/20 09/28/20 Range/Units 23:56 23:56 WBC (3.8-10.6) k/uL RBC (3.80-5.40) m/uL Hgb (11.4-16.0) gm/dL Hct (34.0-46.0) % MCV (80.0-100.0) fL MCH (25.0-35.0) pg MCHC (31.0-37.0) g/dL RDW (11.5-15.5) % Plt Count (150-450) k/uL MPV Neutrophils % % Lymphocytes % % Monocytes % % Eosinophils % % Basophils % % Neutrophils # (1.3-7.7) k/uL Lymphocytes # (1.0-4.8) k/uL Monocytes # (0-1.0) k/uL Eosinophils # (0-0.7) k/uL Basophils # (0-0.2) k/uL PT (9.0-12.0) sec INR (<1.2) APTT (22.0-30.0) sec Sodium (137-145) mmol/L Potassium (3.5-5.1) mmol/L Chloride (98-107) mmol/L Carbon Dioxide (22-30) mmol/L Anion Gap mmol/L BUN (7-17) mg/dL Creatinine (0.52-1.04) mg/dL Est GFR (CKD-EPI)AfAm (>60 ml/min/1.73 sqM) Est GFR (CKD-EPI)NonAf (>60 ml/min/1.73 sqM) Glucose (74-99) mg/dL Calcium (8.4-10.2) mg/dL Magnesium (1.6-2.3) mg/dL Total Bilirubin (0.2-1.3) mg/dL AST (14-36) U/L ALT (4-34) U/L Alkaline Phosphatase (38-126) U/L Creatine Kinase (30-135) U/L Troponin I <0.012 (0.000-0.034) ng/mL NT-Pro-B Natriuret Pep 2400 pg/mL Total Protein (6.3-8.2) g/dL Albumin (3.5-5.0) g/dL Lipase (23-300) U/L Disposition Clinical Impression: Atrial fibrillation, Palpitations Disposition: HOME SELF-CARE Condition: Good Instructions (If sedation given, give patient instructions): Heart Palpitations (ED) Is patient prescribed a controlled substance at d/c from ED?: No Referrals: Jaky Sheridan MD [Primary Care Provider] - 1-2 days
[2020-09-29 00:07] LABS: Basophils # (A) 0.1 k/uL (0-0.2); Basophils % (A) 1 %; Eosinophils # (A) 0.4 k/uL (0-0.7); Eosinophils % (A) 7 %; HCT 36.7 % (34.0-46.0); HGB 12.6 gm/dL (11.4-16.0); Lymphocytes # (A) 1.7 k/uL (1.0-4.8); Lymphocytes % (A) 31 %; MCH 33.1 pg (25.0-35.0); MCHC 34.2 g/dL (31.0-37.0); MCV 96.6 fL (80.0-100.0); Mean Platelet Volume 8.9; Monocytes # (A) 0.3 k/uL (0-1.0); Monocytes % (A) 6 %; Neutrophils # (A) 2.9 k/uL (1.3-7.7); Neutrophils % (A) 53 %; Platelet Count 169 k/uL (150-450); RDW 14.3 % (11.5-15.5); WBC 5.4 k/uL (3.8-10.6)
[2020-09-29 00:18] LABS: Albumin 3.8 g/dL (3.5-5.0); Calcium 9.6 mg/dL (8.4-10.2); Magnesium 1.7 mg/dL (1.6-2.3); Total Bilirubin 0.5 mg/dL (0.2-1.3); Total Protein 7.1 g/dL (6.3-8.2)
[2020-09-29 00:32] LABS: INR 1.1 (<1.2); Partial Thromboplastin Time 23.2 sec (22.0-30.0); Prothrombin Time 11.2 sec (9.0-12.0)
[2020-09-29 02:17] VITALS: BP 163/99; PULSE 90; RESP 18; TEMP 98.2
== END 2020-09-29 02:25 | disposition home or self-care (01) ==
LOC: EC 23:27
DX: I48.91 Unspecified atrial fibrillation (principal); I10 Essential (primary) hypertension; Z79.899 Other long term (current) drug therapy; Z88.5 Allergy status to narcotic agent; Z86.73 Personal history of transient ischemic attack (TIA), and cerebral infarction without residual deficits
CPT/HCPCS: 36415; 80053; 82550; 83690; 83735; 83880; 84484; 85025; 85610; 85730; 93005; 99285

== ENCOUNTER 2020-10-02 10:19 | Inpatient (IN) | payer MEDICARE, OTHER ==
[2020-10-02] MEDS ORDERED: DILTIAZEM 5 MG/ML 5 ML VIAL IVP STA (10:38)
[2020-10-02 10:55] LABS: Basophils % (A) 1 %; Eosinophils # (A) 0.3 k/uL (0-0.7); Eosinophils % (A) 4 %; HCT 39.1 % (34.0-46.0); HGB 12.9 gm/dL (11.4-16.0); Lymphocytes # (A) 1.2 k/uL (1.0-4.8); Lymphocytes % (A) 20 %; MCH 32.2 pg (25.0-35.0); MCV 97.7 fL (80.0-100.0); Macrocytosis Slight; Mean Platelet Volume 9.1; Monocytes # (A) 0.4 k/uL (0-1.0); Monocytes % (A) 6 %; Neutrophils # (A) 4.1 k/uL (1.3-7.7); Neutrophils % (A) 68 %; Platelet Count 193 k/uL (150-450); RBC 4.01 m/uL (3.80-5.40); WBC 6.1 k/uL (3.8-10.6)
[2020-10-02 11:03] LABS: INR 1.1 (<1.2); Partial Thromboplastin Time 22.5 sec (22.0-30.0); Prothrombin Time 11.6 sec (9.0-12.0)
--- NOTE | 2020-10-02 11:11 | ED ---
General Adult HPI - General Chief complaint: Shortness of Breath Stated complaint: SOB Time Seen by Provider: 10/02/20 10:24 Source: patient, EMS, RN notes reviewed, old records reviewed Mode of arrival: EMS Limitations: no limitations - History of Present Illness Initial comments: This is an 80-year-old female presents emergency Department chief complaint shortness breath. Patient had increasing shortness with the last several days. Patient states her heart has been racing. Denies any chest pain states some tightness. She does admit that she has COPD. Patient also has A. fib currently on Eliquis. Patient states that she had a recent hospitalization for issues like this. Patient states she was told she had fluid in her lungs. Patient den ies any significant leg swelling. Patient states that any movement increases or shortness of breath. She reports no fevers chills no URI symptoms. - Related Data Home Medications Medication Instructions Recorded Confirmed Gabapentin [Neurontin] 100 mg PO BID PRN 09/23/20 10/02/20 Losartan Potassium 100 mg PO DAILY 09/23/20 10/02/20 Previous Rx's Medication Instructions Recorded Apixaban [Eliquis] 5 mg PO BID #60 tab 09/24/20 Metoprolol Tartrate [Lopressor] 50 mg PO TID #90 tab 09/25/20 Spironolactone [Aldactone] 25 mg PO DAILY #30 tab 09/25/20 Allergies Allergy/AdvReac Type Severity Reaction Status Date / Time codeine AdvReac Vision Verified 10/02/20 10:46 Disturbance Review of Systems ROS Statement: Those systems with pertinent positive or pertinent negative responses have been documented in the HPI. ROS Other: All systems not noted in ROS Statement are negative. Past Medical History Past Medical History: CVA/TIA, Hypertension Additional Past Medical History / Comment(s): DC'd from [facility] for Stroke on 09/09 History of Any Multi-Drug Resistant Organisms: None Reported Past Surgical History: Joint Replacement, Orthopedic Surgery Past Anesthesia/Blood Transfusion Reactions: No Reported Reaction Past Psychological History: No Psychological Hx Reported Smoking Status: Never smoker Past Alcohol Use History: Occasional Past Drug Use History: None Reported - Past Family History Mother Family Medical History: No Reported History Father Family Medical History: No Reported History General Exam General appearance: alert, in no apparent distress Head exam: Present: atraumatic, normocephalic, normal inspection Eye exam: Present: normal appearance, PERRL, EOMI. Absent: scleral icterus, conjunctival injection, periorbital swelling ENT exam: Present: normal exam, normal oropharynx, mucous membranes moist Neck exam: Present: normal inspection, full ROM. Absent: tenderness, meningismus, lymphadenopathy Respiratory exam: Present: normal lung sounds bilaterally. Absent: respiratory distress, wheezes, rales, rhonchi, stridor Cardiovascular Exam: Present: tachycardia, irregular rhythm, normal heart sounds. Absent: regular rate, normal rhythm, systolic murmur, diastolic murmur, rubs, gallop, clicks GI/Abdominal exam: Present: soft, normal bowel sounds. Absent: distended, tenderness, guarding, rebound, rigid Extremities exam: Absent: pedal edema, calf tenderness Course Vital Signs 10/02/20 10/02/20 10:20 11:18 Temperature 98.7 F Pulse Rate 116 H 96 Respiratory 20 18 Rate Blood Pressure 157/101 143/80 O2 Sat by Pulse 94 L 94 L Oximetry EKG Findings - EKG Comments: EKG Findings:: EKG performed at time: 25 A. fib with RVR rate of 104 [place] 74 QT/QTC 350/460 Medical Decision Making - Medical Decision Making Patient found to be in A. fib with heart rate [place] [address] patient was given a bolus of Cardizem heart rate has improved. Patient does have evidence of congestive heart failure patient was given dose of Lasix will be admitted for further management and treatment. - Lab Data Result diagrams: 10/02/20 10:42 10/02/20 10:42 Lab Results 10/02/20 10/02/20 10/02/20 Range/Units 10:42 10:42 10:42 WBC 6.1 (3.8-10.6) k/uL RBC 4.01 (3.80-5.40) m/uL Hgb 12.9 (11.4-16.0) gm/dL Hct 39.1 (34.0-46.0) % MCV 97.7 (80.0-100.0) fL MCH 32.2 (25.0-35.0) pg MCHC 33.0 (31.0-37.0) g/dL RDW 15.0 (11.5-15.5) % Plt Count 193 (150-450) k/uL MPV 9.1 Neutrophils % 68 % Lymphocytes % 20 % Monocytes % 6 % Eosinophils % 4 % Basophils % 1 % Neutrophils # 4.1 (1.3-7.7) k/uL Lymphocytes # 1.2 (1.0-4.8) k/uL Monocytes # 0.4 (0-1.0) k/uL Eosinophils # 0.3 (0-0.7) k/uL Basophils # 0.0 (0-0.2) k/uL Macrocytosis Slight PT 11.6 (9.0-12.0) sec INR 1.1 (<1.2) APTT 22.5 (22.0-30.0) sec Sodium 138 (137-145) mmol/L Potassium 4.3 (3.5-5.1) mmol/L Chloride 105 (98-107) mmol/L Carbon Dioxide 27 (22-30) mmol/L Anion Gap 6 mmol/L BUN 16 (7-17) mg/dL Creatinine 0.93 (0.52-1.04) mg/dL Est GFR (CKD-EPI)AfAm 68 (>60 ml/min/1.73 sqM) Est GFR (CKD-EPI)NonAf 59 (>60 ml/min/1.73 sqM) Glucose 124 H (74-99) mg/dL Plasma Lactic Acid Buck (0.7-2.0) mmol/L Calcium 9.9 (8.4-10.2) mg/dL Magnesium 1.6 (1.6-2.3) mg/dL Total Bilirubin 1.3 (0.2-1.3) mg/dL AST 68 H (14-36) U/L ALT 109 H (4-34) U/L Alkaline Phosphatase 61 (38-126) U/L Troponin I (0.000-0.034) ng/mL NT-Pro-B Natriuret Pep pg/mL Total Protein 7.3 (6.3-8.2) g/dL Albumin 4.2 (3.5-5.0) g/dL Triglycerides 163 H (<150) mg/dL Cholesterol 150 (<200) mg/dL LDL Cholesterol, Calc 87 (0-99) mg/dL HDL Cholesterol 30 L (40-60) mg/dL 10/02/20 10/02/20 10/02/20 Range/Units 10:42 10:42 10:42 WBC (3.8-10.6) k/uL RBC (3.80-5.40) m/uL Hgb (11.4-16.0) gm/dL Hct (34.0-46.0) % MCV (80.0-100.0) fL MCH (25.0-35.0) pg MCHC (31.0-37.0) g/dL RDW (11.5-15.5) % Plt Count (150-450) k/uL MPV Neutrophils % % Lymphocytes % % Monocytes % % Eosinophils % % Basophils % % Neutrophils # (1.3-7.7) k/uL Lymphocytes # (1.0-4.8) k/uL Monocytes # (0-1.0) k/uL Eosinophils # (0-0.7) k/uL Basophils # (0-0.2) k/uL Macrocytosis PT (9.0-12.0) sec INR (<1.2) APTT (22.0-30.0) sec Sodium (137-145) mmol/L Potassium (3.5-5.1) mmol/L Chloride (98-107) mmol/L Carbon Dioxide (22-30) mmol/L Anion Gap mmol/L BUN (7-17) mg/dL Creatinine (0.52-1.04) mg/dL Est GFR (CKD-EPI)AfAm (>60 ml/min/1.73 sqM) Est GFR (CKD-EPI)NonAf (>60 ml/min/1.73 sqM) Glucose (74-99) mg/dL Plasma Lactic Acid Buck 1.1 (0.7-2.0) mmol/L Calcium (8.4-10.2) mg/dL Magnesium (1.6-2.3) mg/dL Total Bilirubin (0.2-1.3) mg/dL AST (14-36) U/L ALT (4-34) U/L Alkaline Phosphatase (38-126) U/L Troponin I <0.012 (0.000-0.034) ng/mL NT-Pro-B Natriuret Pep 3430 pg/mL Total Protein (6.3-8.2) g/dL Albumin (3.5-5.0) g/dL Triglycerides (<150) mg/dL Cholesterol (<200) mg/dL LDL Cholesterol, Calc (0-99) mg/dL HDL Cholesterol (40-60) mg/dL Critical Care Time Critical Care Time: Yes Total Critical Care Time: 35 Critical Care Time: Total 35 minutes of critical care time use initially evaluated patient, review past medical history prior records ordered and labs EKG chest x-ray. Patient found to be in A. fib RVR was given a bolus of Cardizem. Heart rate is improved patient does have mild pulmonary edema was given Lasix. Patient will be admitted to medicine in which case is was discussed, consult cardiology. Disposition Clinical Impression: Atrial fibrillation with rapid ventricular response, CHF (congestive heart failure), Exertional dyspnea Disposition: ADMITTED IP TO THIS HOSP Condition: Fair Referrals: Jaky Sheridan MD [Primary Care Provider] - 1-2 days
[2020-10-02 11:12] LABS: Albumin 4.2 g/dL (3.5-5.0); Calcium 9.9 mg/dL (8.4-10.2); Magnesium 1.6 mg/dL (1.6-2.3); Potassium 4.3 mmol/L (3.5-5.1); Total Bilirubin 1.3 mg/dL (0.2-1.3); Total Protein 7.3 g/dL (6.3-8.2)
--- NOTE | 2020-10-02 11:12 | XR ---
EXAMINATION TYPE: XR chest 2V DATE OF EXAM: 10/02/2020 COMPARISON: 09/23/2020 HISTORY: 80-year-old female difficulty breathing, shortness of breath TECHNIQUE: PA and lateral views FINDINGS: Heart mildly enlarged. Interstitial density persists. Bilateral hilar prominence persists and no j carlos k consolidation or pleural effusion. Bilateral shoulder arthroplasties partially visualized. IMPRESSION: Mild cardiomegaly and persistent interstitial change. Bilateral hilar prominence also noted that coul d reflect pulmonary arterial hypertension. Correlate for mild CHF. Nonemergent follow-up contrast enh anced CT chest can confirm large central pulmonary arteries rather than hilar lymphadenopathy.
[2020-10-02] MEDS ORDERED: FUROSEMIDE 10 MG/ML 4 ML VIAL IV STA (11:59)
[2020-10-02] MEDS: FUROSEMIDE 10 MG/ML 4 ML VIAL IV SCH ×2 (12:04→23:23)
[2020-10-02] MEDS: METOPROLOL TARTRATE 50 MG TAB PO SCH ×2 (17:11→21:14)
[2020-10-02] MEDS: APIXABAN 5 MG TAB PO SCH (21:15)
--- NOTE | 2020-10-03 00:01 | P.HPIM ---
History of Present Illness H&P Date: 10/02/20 Chief Complaint: Shortness of breath Patient is a 80-year-old female with a known history of recent history of COPD, CVA/TIA, hypertension, paroxysmal atrial fibrillation on anticoagulation presents ER with complaints of shortness of breath. Patient has been having worsening shortness of breath for more than a week. Patient also felt heart racing up fast and chest tightness. No worsening leg swelling. No complains of fever or chills. No cough or sputum production. Neck no nausea vomiting or abdominal pain or diarrhea. Chest x-ray showed mild cardiomegaly and persistent interstitial changes. Bilateral hilar prominence has noted that could reflect pulmonary arterial hypertension. Correlate for mild CHF. EKG showed atrial fibrillation with rapid ventricular rate Laboratory data reviewed. ProBNP 3430, AST 68 and ALT 109 Review of Systems Constitutional: Patient denies any fever or chills . No generalized weakness or weight loss. Abdomen: Patient denied nausea vomiting and diarrhea and abdominal pain. Cardiovascular: Patient does complain of chest tightness and shortness of breath. Palpitations present. No worsening leg swelling.. Respiratory: patient denied any cough is from production. No shortness of breath Neurologic: Patient denied any numbness or tingling headache. Musculoskeletal: Patient denies any complaints of joint swelling or deformity. Skin: Negative Psychiatric: Negative Endocrine: No heat or cold intolerance. No recent weight gain. Genitourinary: No dysuria or hematuria. All other 14 point ROS negative except the above Past Medical History Past Medical History: CVA/TIA, Hypertension Additional Past Medical History / Comment(s): DC'd from [facility] for Stroke on 09/09 History of Any Multi-Drug Resistant Organisms: None Reported Past Surgical History: Joint Replacement, Orthopedic Surgery Past Anesthesia/Blood Transfusion Reactions: No Reported Reaction Past Psychological History: No Psychological Hx Reported Smoking Status: Never smoker Past Alcohol Use History: Occasional Past Drug Use History: None Reported - Past Family History Mother Family Medical History: No Reported History Father Family Medical History: No Reported History Medications and Allergies Home Medications Medication Instructions Recorded Confirmed Type RX: Gabapentin [Neurontin] 100 mg PO BID PRN 09/23/20 10/02/20 History RX: Losartan Potassium 100 mg PO DAILY 09/23/20 10/02/20 History RX: Apixaban [Eliquis] 5 mg PO BID #60 tab 09/24/20 10/02/20 Rx RX: Metoprolol Tartrate [Lopressor] 50 mg PO TID #90 tab 09/25/20 10/02/20 Rx RX: Spironolactone [Aldactone] 25 mg PO DAILY #30 tab 09/25/20 10/02/20 Rx Allergies Allergy/AdvReac Type Severity Reaction Status Date / Time codeine AdvReac Vision Verified 10/02/20 10:46 Disturbance Physical Exam Vitals: Vital Signs Temp Pulse Resp BP Pulse Ox 10/02/20 12:48 97 22 142/69 96 10/02/20 11:18 96 18 143/80 94 L 10/02/20 10:20 98.7 F 116 H 20 157/101 94 L Intake and Output 10/01/20 10/02/20 10/02/20 22:59 06:59 14:59 Other: Weight 79.379 kg PHYSICAL EXAMINATION: Patient is lying in the bed comfortably, no acute distress, awake alert and oriented.. HEENT: Normocephalic. Neck is supple. Pupils reactive. Nostrils clear. Oral cavity is moist. Ears reveal no drainage. Neck reveals no JVD, carotid bruits, or thyromegaly. CHEST EXAMINATION: Trachea is central. Symmetrical expansion. Bibasilar diminished air entry. No wheezing noted.. CARDIAC: Normal S1, S2 with no gallops. No murmurs ABDOMEN: Soft. Bowel sounds normal. No organomegaly. No abdominal bruits. Extremities: Trace bilateral leg edema. No clubbing or cyanosis Neurologically awake, alert, oriented x3 with well-coordinated movements. No focal deficits noted Skin: No rash or skin lesions. Psychiatric: Coperative. Nonsuicidal Musculoskeletal: No joint swelling or deformity. Normal range of motion. Results CBC & Chem 7: 10/03/20 07:17 10/03/20 07:17 Labs: Abnormal Lab Results - Last 24 Hours (Table) 10/02/20 Range/Units 10:42 Glucose 124 H (74-99) mg/dL AST 68 H (14-36) U/L ALT 109 H (4-34) U/L Triglycerides 163 H (<150) mg/dL HDL Cholesterol 30 L (40-60) mg/dL Thrombosis Risk Factor Assmnt - DVT/VTE Prophylaxis DVT/VTE Prophylaxis: Pharmacologic Prophylaxis ordered Assessment and Plan Assessment: Atrial fibrillation with rapid ventricular rate. [facility] with ejection fraction unknown Possible pulmonary hypertension COPD Paroxysmal atrial fibrillation History of CVA/TIA Hypertension uncontrolled Mild transaminitis DVT prophylaxis Plan: Patient was given IV Cardizem and heart rate is better controlled now. Started back on home dose of metoprolol. Continued with IV Lasix for 24 hours and cardiology was consulted. Continue with telemetry monitoring. Continued blood pressure medications and follow closely. Time with Patient: Greater than 30
[2020-10-03] MEDS: GABAPENTIN 100 MG CAP PO PRN ×3 (05:03→23:10)
[2020-10-03 08:15] LABS: Basophils # (A) 0.1 k/uL (0-0.2); Basophils % (A) 1 %; Eosinophils # (A) 0.3 k/uL (0-0.7); Eosinophils % (A) 6 %; HCT 37.6 % (34.0-46.0); HGB 13.3 gm/dL (11.4-16.0); Lymphocytes # (A) 1.3 k/uL (1.0-4.8); Lymphocytes % (A) 26 %; MCH 33.9 pg (25.0-35.0); MCHC 35.3 g/dL (31.0-37.0); MCV 96.1 fL (80.0-100.0); Mean Platelet Volume 8.6; Monocytes # (A) 0.4 k/uL (0-1.0); Monocytes % (A) 9 %; Neutrophils # (A) 2.7 k/uL (1.3-7.7); Neutrophils % (A) 56 %; Platelet Count 178 k/uL (150-450); RBC 3.92 m/uL (3.80-5.40); RDW 14.4 % (11.5-15.5); WBC 4.8 k/uL (3.8-10.6)
[2020-10-03 08:29] LABS: Calcium 9.8 mg/dL (8.4-10.2); Potassium 3.6 mmol/L (3.5-5.1)
[2020-10-03] MEDS: APIXABAN 5 MG TAB PO SCH ×2 (08:29→20:28)
[2020-10-03] MEDS: METOPROLOL TARTRATE 50 MG TAB PO SCH ×3 (08:29→22:56)
[2020-10-03] MEDS: LOSARTAN 50 MG TAB PO SCH (08:29)
[2020-10-03] MEDS ORDERED: SPIRONOLACTONE 25 MG TAB PO SCH (09:00)
[2020-10-03] MEDS ORDERED: SPIRONOLACTONE 25 MG TAB PO STA (09:51)
[2020-10-03] MEDS: ISOSORBIDE DINITRATE 10 MG TAB PO SCH ×3 (10:38→22:56)
[2020-10-03] MEDS: FUROSEMIDE 10 MG/ML 4 ML VIAL IV SCH ×2 (10:38→23:00)
[2020-10-03] MEDS ORDERED: POTASSIUM CHLORIDE ER 20 MEQ TAB.ER PO STA ×2 (10:53→11:55)
--- NOTE | 2020-10-03 11:59 | P.CRDCN ---
History of Present Illness Consult reason: shortness of breath History of present illness: HISTORY OF PRESENTING ILLNESS This is a pleasant 80-year-old female past medical history significant for any persistent atrial fibrillation on Eliquis, hypertension, CVA, chronic systolic heart failure. She was recently discharged from the hospital for treatment of heart failure in his chest to follow-up in the office with Dr. Matias however has an appointment scheduled for next week. We have been asked to see in consultation for heart failure and Thomas escobar She said when she was discharged from the hospital on September 25 she was feeling okay but not great. Since being home she feels as though her shortness of breath has gotten worse. She also was feeling a lot of palpitations yesterday. On arrival EKG revealed atrial fibrillation with heart rate of 104. She was given one dose of IV Cardizem. Telemetry tracings reveal persistent atrial fibrillation with mostly controlled rates. Echocardiogram obtained earlier this month revealed impaired LV systolic function with ejection fraction 35-40%, mild tricuspid regurgitation and mild pulmonary potential with RVSP of 44 mmHg. DIAGNOSTICS EKG reveals trophic fibrillation with heart rate of 104. Chest xray persistent interstitial changes with bilateral hilar prominence. Laboratory reviewed, CBC unremarkable, sodium 141, potassium 3.6, creatinine 0.93, magnesium 1.6, cardiac enzymes negative 1, NT proBNP 3430, LDL 87 HDL 30. Current cardiac medications include Eliquis 5 mg twice a day, losartan 100 mg daily, Lopressor 50 mg 3 times a day Aldactone 25 mg daily. REVIEW OF SYSTEMS At the time of my exam: CONSTITUTIONAL: Denies fever or chills. CARDIOVASCULAR: Complains of shortness of breath. Denies chest pain, orthopnea, PND or palpitations. RESPIRATORY: Denies cough. GASTROINTESTINAL: Denies abdominal pain, diarrhea, constipation, nausea or vomiting. MUSCULOSKELETAL: Denies myalgias. NEUROLOGIC: Denies numbness, tingling, headacbe or weakness. ENDOCRINE: Denies fatigue, weight change, polydipsia or polyurina. GENITOURINARY: Denies burning, hematuria or urgency with micturation. HEMATOLOGIC: Denies history of anemia or bleeding. PHYSICAL EXAMINATION Blood pressure 136/76 heart rate 92 afebrile and maintaining oxygen saturation on room air. CONSTITUTIONAL: No apparent distress. HEENT: Head is normocephalic. Pupils are equal, round. Sclerae anicteric. Mucous membranes of the mouth are moist. No JVD. No carotid bruit. CHEST EXAMINATION: Faint bibasilar rales, no wheezes or rhonchi. No chest wall tenderness is noted on palpation or with deep breathing. HEART EXAMINATION: Irregular rate and rhythm. S1, S2 heard. No murmurs, gallops or rub. ABDOMEN: Soft, nontender. Positive bowel sounds. EXTREMITIES: 2+ peripheral pulses, no lower extremity edema and no calf tenderness. NEUROLOGIC EXAMINATION: Patient is awake, alert and oriented x3. ASSESSMENT Acute on chronic systolic heart failure Chronic persistent atrial fibrillation with variable ventricular rates Hypertension History of CVA PLAN Continue IV diuresis. Document accurate intake and output along with daily weights. Follow renal function and electrolytes in the morning. Add hydralazine 25 mg 3 times a day along with ice a drill 10 mg 3 times a day for optimal blood pressure control. Continue Eliquis for thromboembolic protection. Increase Aldactone to 50 mg daily. Further recommendations to follow based upon clinical course. Thank you kindly for this consultation. Nurse Practitioner note has been reviewed, I agree with a documented findings and plan of care. Patient was seen and examined. Past Medical History Past Medical History: CVA/TIA, Hypertension Additional Past Medical History / Comment(s): DC'd from [facility] for Stroke on 09/09 History of Any Multi-Drug Resistant Organisms: None Reported Past Surgical History: Joint Replacement, Orthopedic Surgery Past Anesthesia/Blood Transfusion Reactions: No Reported Reaction Past Psychological History: No Psychological Hx Reported Smoking Status: Never smoker Past Alcohol Use History: Occasional Past Drug Use History: None Reported - Past Family History Mother Family Medical History: No Reported History Father Family Medical History: No Reported History Medications and Allergies Home Medications Medication Instructions Recorded Confirmed Type Gabapentin [Neurontin] 100 mg PO BID PRN 09/23/20 10/02/20 History Losartan Potassium 100 mg PO DAILY 09/23/20 10/02/20 History Apixaban [Eliquis] 5 mg PO BID #60 tab 09/24/20 10/02/20 Rx Metoprolol Tartrate [Lopressor] 50 mg PO TID #90 tab 09/25/20 10/02/20 Rx Spironolactone [Aldactone] 25 mg PO DAILY #30 tab 09/25/20 10/02/20 Rx Allergies Allergy/AdvReac Type Severity Reaction Status Date / Time codeine AdvReac Vision Verified 10/02/20 10:46 Disturbance Physical Exam Vitals: Vital Signs Temp Pulse Pulse Resp BP BP BP 10/03/20 07:25 97.5 F L 73 18 169/93 10/03/20 04:00 94 19 161/85 10/03/20 01:10 89 18 10/03/20 00:00 89 18 156/74 10/02/20 20:00 98.1 F 90 17 139/80 10/02/20 18:00 165/90 10/02/20 17:20 103 H 16 10/02/20 17:05 97.2 F L 103 H 16 178/118 10/02/20 12:48 97 22 142/69 10/02/20 11:18 96 18 143/80 10/02/20 10:20 98.7 F 116 H 20 157/101 Pulse Ox 10/03/20 07:25 97 10/03/20 04:00 96 10/03/20 01:10 10/03/20 00:00 95 10/02/20 20:00 95 10/02/20 18:00 10/02/20 17:20 10/02/20 17:05 92 L 10/02/20 12:48 96 10/02/20 11:18 94 L 10/02/20 10:20 94 L Intake and Output 10/02/20 10/03/20 10/03/20 22:59 06:59 14:59 Intake Total 520 410 210 Output Total 1000 2600 Balance -480 -2190 210 Intake: IV 20 10 10 Invasive Line 1 20 10 10 Oral 500 400 200 Output: Urine 1000 2600 Other: # Voids 1 1 Weight 71.8 kg 75.6 kg Results 10/03/20 07:17 10/03/20 07:17 Cardiac Enzymes 10/02/20 10/02/20 Range/Units 10:42 10:42 AST 68 H (14-36) U/L Troponin I <0.012 (0.000-0.034) ng/mL Coagulation 10/02/20 Range/Units 10:42 PT 11.6 (9.0-12.0) sec APTT 22.5 (22.0-30.0) sec Lipids 10/02/20 Range/Units 10:42 Triglycerides 163 H (<150) mg/dL Cholesterol 150 (<200) mg/dL HDL Cholesterol 30 L (40-60) mg/dL CBC 10/02/20 10/03/20 Range/Units 10:42 07:17 WBC 6.1 4.8 (3.8-10.6) k/uL RBC 4.01 3.92 (3.80-5.40) m/uL Hgb 12.9 13.3 (11.4-16.0) gm/dL Hct 39.1 37.6 (34.0-46.0) % Plt Count 193 178 (150-450) k/uL Comprehensive Metabolic Panel 10/02/20 Range/Units 10:42 Sodium 138 (137-145) mmol/L Potassium 4.3 (3.5-5.1) mmol/L Chloride 105 (98-107) mmol/L Carbon Dioxide 27 (22-30) mmol/L BUN 16 (7-17) mg/dL Creatinine 0.93 (0.52-1.04) mg/dL Glucose 124 H (74-99) mg/dL Calcium 9.9 (8.4-10.2) mg/dL AST 68 H (14-36) U/L ALT 109 H (4-34) U/L Alkaline Phosphatase 61 (38-126) U/L Total Protein 7.3 (6.3-8.2) g/dL Albumin 4.2 (3.5-5.0) g/dL Current Medications Generic Name Dose Route Start Last Admin Trade Name Freq PRN Reason Stop Dose Admin Apixaban 5 mg 10/02/20 21:00 10/02/20 21:15 Apixaban 5 Mg Tab PO 5 mg BID YUAN Administration Furosemide 40 mg 10/02/20 12:00 10/02/20 23:23 Furosemide 10 Mg/Ml 4 Ml Vial IV 40 mg Q12H YUAN Administration Gabapentin 100 mg 10/02/20 16:44 10/03/20 05:03 Gabapentin 100 Mg Cap PO 100 mg BID PRN Administration Pain Losartan Potassium 100 mg 10/03/20 09:00 Losartan 50 Mg Tab PO DAILY YUAN Metoprolol Tartrate 50 mg 10/02/20 16:45 10/02/20 21:14 Metoprolol Tartrate 50 Mg Tab PO 50 mg TID YUAN Administration Spironolactone 25 mg 10/03/20 09:00 Spironolactone 25 Mg Tab PO DAILY YUAN Intake and Output 10/02/20 10/03/20 10/03/20 22:59 06:59 14:59 Intake Total 520 410 210 Output Total 1000 2600 Balance -480 -2190 210 Intake: IV 20 10 10 Invasive Line 1 20 10 10 Oral 500 400 200 Output: Urine 1000 2600 Other: # Voids 1 1 Weight 71.8 kg 75.6 kg 10/03/20 07:17 10/02/20 10:42
[2020-10-03] MEDS ORDERED: ASPIRIN 325 MG TAB PO SCH (12:01)
[2020-10-03] MEDS: hydrALAZINE HCL 25 MG TAB PO SCH ×2 (15:57→22:56)
--- NOTE | 2020-10-03 18:31 | US ---
EXAMINATION TYPE: US venous doppler duplex LE LT DATE OF EXAM: 10/03/2020 6:17 PM COMPARISON: NONE CLINICAL HISTORY: r/o dvt, left calf pain. SIDE PERFORMED: Left TECHNIQUE: The lower extremity deep venous system is examined utilizing real time linear array sonog krisite with graded compression, doppler sonography and color-flow sonography. VESSELS IMAGED: Common Femoral Vein Deep Femoral Vein Greater Saphenous Vein * Femoral Vein Popliteal Vein Small Saphenous Vein * Proximal Calf Veins (* superficial vessels) Left Leg: Negative for DVT IMPRESSION: No DVT of the left lower extremity.
[2020-10-04] MEDS ORDERED: SPIRONOLACTONE 25 MG TAB PO SCH (09:00)
[2020-10-04 09:25] LABS: Calcium 9.7 mg/dL (8.4-10.2)
[2020-10-04] MEDS: hydrALAZINE HCL 25 MG TAB PO SCH ×2 (09:42→16:20)
[2020-10-04] MEDS: ISOSORBIDE DINITRATE 10 MG TAB PO SCH ×2 (09:42→16:20)
[2020-10-04] MEDS: APIXABAN 5 MG TAB PO SCH (09:42)
[2020-10-04] MEDS: METOPROLOL TARTRATE 50 MG TAB PO SCH ×2 (09:42→16:20)
[2020-10-04] MEDS: LOSARTAN 50 MG TAB PO SCH (09:42)
[2020-10-04 11:08] VITALS: RESP 16; TEMP 98.4
[2020-10-04] MEDS: FUROSEMIDE 10 MG/ML 4 ML VIAL IV SCH (12:00)
--- NOTE | 2020-10-04 12:52 | P.PN ---
Subjective HISTORY OF PRESENTING ILLNESS This is a pleasant 80-year-old female past medical history significant for any persistent atrial fibrillation on Eliquis, hypertension, CVA, chronic systolic heart failure. She was recently discharged from the hospital for treatment of heart failure in his chest to follow-up in the office with Dr. Matias however has an appointment scheduled for next week. She is seen and examined sitting up in bed in no acute distress. She states her breathing has greatly improved since admission. She denies exertional shortness of breath. She has no chest pain, dizziness or palpitations. Blood pressure 122/75 heart rate 88 afebrile maintaining oxygen saturation on room air. Laboratory data reviewed, sodium 137, potassium 4.0, creatinine 1.18 and TSH 0.59. Doppler of the left lower extremity negative for DVT. Currently maintained on Eliquis 5 mg twice a day, Lasix 40 mg IV twice a day, hydralazine 25 mg 3 times a day, isosorbide dinitrate 10 mg 3 times a day, losartan 100 mg daily, Lopressor 50 mg 3 times a day and Aldactone 50 mg daily. 24 hour urine output is 3650 mL. Her weight is down 3 kg since admission. PHYSICAL EXAMINATION CONSTITUTIONAL: No apparent distress. HEENT: Head is normocephalic. Pupils are equal, round. Sclerae anicteric. Mucous membranes of the mouth are moist. No JVD. No carotid bruit. CHEST EXAMINATION: Clear to auscultation bilaterally, no wheezes, rales or rhonchi. No chest wall tenderness is noted on palpation or with deep breathing. HEART EXAMINATION: Irregular rate and rhythm. S1, S2 heard. No murmurs, gallops or rub. EXTREMITIES: 2+ peripheral pulses, no lower extremity edema and no calf tenderness. ASSESSMENT Acute on chronic systolic heart failure Chronic persistent atrial fibrillation with variable ventricular rates Hypertension History of CVA PLAN Breathing and fluid overload have greatly improved on IV diuresis. Blood pressure better controlled on current regimen. Stable for discharge from a cardiac perspective, follow up with Dr. Matias in the office as previously scheduled. Nurse Practitioner note has been reviewed, I agree with a documented findings and plan of care. Patient was seen and examined. Objective - Vital Signs Vital signs: Vital Signs Temp 98.4 F 10/04/20 07:35 Pulse 80 10/04/20 07:35 Resp 16 10/04/20 07:35 BP 122/75 10/04/20 07:35 Pulse Ox 94 L 10/04/20 07:35 Intake & Output 10/03/20 10/04/20 10/04/20 18:59 06:59 18:59 Intake Total 820 370 190 Output Total 2250 1400 Balance -1430 -1030 190 Weight 73.1 kg 72.4 kg Intake: IV 20 20 10 Invasive Line 1 10 Invasive Line 2 10 20 10 Oral 800 350 180 Output: Urine 2250 1400 Other: # Voids 1 # Bowel Movements 1 - Labs CBC & Chem 7: 10/03/20 07:17 10/04/20 08:30 Labs: Abnormal Lab Results - Last 24 Hours (Table) 10/04/20 Range/Units 08:30 BUN 23 H (7-17) mg/dL Creatinine 1.18 H (0.52-1.04) mg/dL Glucose 151 H (74-99) mg/dL
[2020-10-04 15:58] VITALS: BP 103/67; PULSE 93
[2020-10-05] MEDS ORDERED: FUROSEMIDE 40 MG TAB PO SCH (09:00)
== END 2020-10-04 16:39 | disposition home or self-care (01) | DRG 308 ==
LOC: EC 10:19 → 3SCARD 13:28
PROVIDERS: ADMIT Internal Medicine; ATTEND Internal Medicine
DX: I48.19 Other persistent atrial fibrillation (principal); I50.23 Acute on chronic systolic (congestive) heart failure; I11.0 Hypertensive heart disease with heart failure; R74.01 Elevation of levels of liver transaminase levels; J44.9 Chronic obstructive pulmonary disease, unspecified; Z79.01 Long term (current) use of anticoagulants; Z79.899 Other long term (current) drug therapy; Z88.5 Allergy status to narcotic agent; Z86.73 Personal history of transient ischemic attack (TIA), and cerebral infarction without residual deficits; Z98.890 Other specified postprocedural states
CPT/HCPCS: 36415; 71046; 80048; 80053; 80061; 83605; 83735; 83880; 84443; 84484; 85025; 85610; 85730; 93005; 96374; 96375; 99291

== ENCOUNTER 2020-11-24 07:46 | Day surgery (SDC) | payer MEDICARE, OTHER ==
[~2020-11-24 07:46] MED LIST: ALPRAZolam 0.5 MG TAB PO PRN; ASPIRIN 325 MG TAB PO ONE; ATORVASTATIN 80 MG TAB PO ONE; HEPARIN SODIUM,PORCINE 10,000 UNIT in SODIUM CHLORIDE 0.9% 1,000 ML IRRIGATION PRN; HEPARIN SODIUM,PORCINE 2,500 UNIT in SODIUM CHLORIDE 0.9% 250 ML IRRIGATION PRN; NITROGLYCERIN SL TABS 0.4 MG TAB SUBLINGUAL PRN; SODIUM CHLORIDE 0.9% 1,000 ML in EMPTY BAG 1 BAG IV ONE
[2020-11-24] MEDS ORDERED: SODIUM CHLORIDE 0.9% 1,000 ML IV ONE (08:06)
[2020-11-24 08:31] LABS: Basophils % (A) 1 %; Eosinophils # (A) 0.4 k/uL (0-0.7); Eosinophils % (A) 6 %; HCT 43.6 % (34.0-46.0); HGB 14.5 gm/dL (11.4-16.0); Lymphocytes # (A) 1.9 k/uL (1.0-4.8); Lymphocytes % (A) 29 %; MCH 32.3 pg (25.0-35.0); MCHC 33.2 g/dL (31.0-37.0); MCV 97.2 fL (80.0-100.0); Mean Platelet Volume 8.7; Monocytes # (A) 0.3 k/uL (0-1.0); Monocytes % (A) 5 %; Neutrophils # (A) 3.8 k/uL (1.3-7.7); Neutrophils % (A) 58 %; Platelet Count 186 k/uL (150-450); RBC 4.49 m/uL (3.80-5.40); RDW 13.9 % (11.5-15.5); WBC 6.5 k/uL (3.8-10.6)
[2020-11-24 08:40] LABS: Calcium 10.3 mg/dL (8.4-10.2); Potassium 3.8 mmol/L (3.5-5.1)
[2020-11-24] MEDS ORDERED: HEPARIN SODIUM 1,000 UN/ML (10ML VL) ONE (08:44)
[2020-11-24] MEDS ORDERED: fentaNYL (PF) 50 MCG/ML 2 ML AMP ONE (08:44)
[2020-11-24] MEDS ORDERED: MIDAZOLAM 2 MG/2 ML VIAL IVP ONE (09:12)
[2020-11-24] MEDS ORDERED: fentaNYL (PF) 50 MCG/ML 2 ML AMP IVP ONE (09:12)
[2020-11-24] MEDS ORDERED: LIDOCAINE 1% INJ 10MG/ML (20 ML MDV) SQ ONE (09:12)
[2020-11-24] MEDS ORDERED: VERAPAMIL SYRINGE (5 MG/10 ML) INTRAARTER ONE (09:16)
[2020-11-24] MEDS ORDERED: HEPARIN SODIUM 1,000 UN/ML (10ML VL) IV ONE ×2 (09:27→09:34)
[2020-11-24] MEDS ORDERED: CLOPIDOGREL 75 MG TAB ONE (09:30)
[2020-11-24] MEDS ORDERED: CLOPIDOGREL 75 MG TAB PO ONE (09:36)
[2020-11-24] MEDS ORDERED: IOPAMIDOL-370 125ML BTL INJ ONE (09:49)
[2020-11-24] MEDS ORDERED: NITROGLYCERIN 1000MCG/10ML SYRINGE INTRACORON ONE (09:50)
[2020-11-24] MEDS ORDERED: ZOLPIDEM 5 MG TAB PO PRN (10:20)
[2020-11-24] MEDS ORDERED: RX INFO: IV CONTRAST WAS GIVEN 1 EACH MISC MISCELLANE PRN (10:20)
[2020-11-24] MEDS ORDERED: NITROGLYCERIN SL TABS 0.4 MG TAB SUBLINGUAL PRN (10:20)
[2020-11-24] MEDS ORDERED: MAG HYDROX/AL HYDROX/SIMETH 30 ML CUP PO PRN (10:20)
[2020-11-24] MEDS ORDERED: ATROPINE SULFATE 0.1 MG/ML 10ML SYRINGE IV PRN (10:20)
[2020-11-24] MEDS ORDERED: SODIUM CHLORIDE 0.9% 1,000 ML IV SCH (10:30)
--- NOTE | 2020-11-24 10:45 | CC ---
CARDIAC CATHETERIZATION REPORT Mrs. Willoughby is an 80-year-old female with known history of hypertension, chronic persistent atrial fibrillation, history of cardiomyopathy who has been complaining of dyspnea on exertion as well as symptoms of chest discomfort. She underwent a myocardial perfusion imaging that revealed an inferior wall defect with evidence of impaired left ventricular systolic function. In view of that, recommendation was made regarding cardiac catheterization. The procedure as well as the risks and the complications were discussed with the patient who is in full understanding and agreement. PROCEDURE: Patient was brought to the labelling machine operator in a fasting semi-sedated state after receiving fentanyl and Benadryl and achieving moderate conscious sedated state. Using Xylocaine anesthesia and Seldinger technique, a 6-Scottish sheath was introduced in the right radial artery. Selective right and left coronary angiography performed using 5-Scottish 3.5 bend right and left Kimmy catheter. Multiple views of the coronary artery including hemiaxial views were obtained. Following that, the right Kimmy was used to cross the aortic valve and left ventricular end-diastolic pressure was calculated. Following that, catheters were removed. Images were reviewed. FINDINGS: FLUOROSCOPY: There was significant calcification involving all the coronary arteries. LEFT MAIN: This is a large-sized vessel, bifurcating into left circumflex, left anterior descending artery. Left main coronary artery has no evidence of high-grade stenosis. LEFT ANTERIOR DESCENDING ARTERY: This vessel tapers, is moderate in caliber, reaches toward the apex with a wraparound apex segment giving rise to a moderately sized diagonal branch in mid segment. At the takeoff of diagonal branch, there is an eccentric 60% to 70% plaque. The rest of the vessel has no high-grade stenosis. LEFT CIRCUMFLEX: This is a nondominant vessel giving rise to 2 obtuse marginal branches. The first one is very proximal. The second one is large in caliber. The left circumflex has mild intimal disease of 20% to 30% without any evidence of high-grade stenosis. RIGHT CORONARY ARTERY: This is a dominant vessel bifurcating distally PDA and posterolateral segment and branches. The right coronary artery is calcified and the mid segment has a 40% to 50% plaque. Distally at the bifurcation of the PDA and PLV has an eccentric 80% blockage. The rest of the vessel has no high-grade stenosis. LEFT VENTRICULOGRAM: Left ventriculogram was not performed. HEMODYNAMICS: There was no gradient across the aortic valve. The left ventricular end- diastolic pressure was 14-18 mmHg. CONCLUSION: 1. Calcified coronary arteries. 2. Significant disease in the distal right coronary artery. 3. Moderate significant disease in the proximal left anterior descending artery. 4. Mild disease in the left circumflex. RECOMMENDATION: In view of finding anatomy, I recommend proceeding with angioplasty and stenting of the RCA. The procedure as well as the risks and the complications were discussed with the patient who is in full understanding and agreement. MMODL / IJN: [id number] /
--- NOTE | 2020-11-24 10:53 | PTCA ---
PERCUTANEOUSTRANS CORORONARY ANGIOGRAPHY Mrs. Willoughby is an 80-year-old female with a history of atrial fibrillation, hypertension, and cardiomyopathy who has been complaining of symptoms of dyspnea and chest discomfort, underwent cardiac catheterization, was found to have significant stenosis involving the distal right coronary artery. In view of that, recommendation was made regarding angioplasty and stenting. The procedure as well as the risks and the complications were discussed with the patient who is in full understanding and agreement. PROCEDURE: A 6-Hebrew FR4 guiding catheter introduced in the system. After cannulating the right coronary ostium, a 0.014 balanced medium weight J-wire was advanced across the lesion positioned into the PDA. Subsequently another 0.014 balanced medium weight J-wire was advanced and positioned in the PLV. Subsequently a 2.25 x 12 mm NC Trek balloon was advanced and one inflation was done at 10 atmospheres. After removing the balloon, a 2.5 x 15 mm Xience Kavita stent was advanced, deployed and post-dilated at 16 atmospheres. After the last inflation, after appropriate wait, the balloon and the guidewire were withdrawn back into the guiding catheter. Images were obtained, repeated. Those images reveal stable successful stenting. At that point, the guiding catheter, the balloon and the guidewire were removed. The sheath was removed. Hemostasis was obtained with deployment of a TR band. There was no immediate complication. Patient is returned to her room in stable condition. Of note, patient received a total of 5000 units of intravenous heparin through the procedure as well as intra-arterial verapamil. Her ACT was followed. She had chest discomfort with the inflation that resolved at the end of the procedure. There was no significant EKG changes. RESULTS: Successful stenting of the distal right coronary artery with reduction of stenosis from 80% to 0%. RECOMMENDATION: Patient will be continued on aspirin, Plavix and her Eliquis. Her aspirin will be stopped in a few weeks and she will be continued on the anticoagulation and Plavix. Those findings and recommendation were discussed with the patient and her daughter over the phone. They are in full understanding and agreement. Duration of sedation is 50 minutes. MMRODNEY / BILLN: [id number] /
[2020-11-24] MEDS: ALPRAZolam 0.25 MG TAB PO PRN ×2 (14:34→22:18)
[2020-11-24 15:24] VITALS: BMI 34.9
[2020-11-24] MEDS: METOPROLOL TARTRATE 50 MG TAB PO SCH ×2 (16:14→22:18)
[2020-11-25 07:45] VITALS: BP 156/79; PULSE 89; RESP 16; TEMP 97.7
[2020-11-25] MEDS: METOPROLOL TARTRATE 50 MG TAB PO SCH (07:47)
[2020-11-25 08:37] LABS: Calcium 10.1 mg/dL (8.4-10.2); Potassium 3.9 mmol/L (3.5-5.1)
[2020-11-25] MEDS ORDERED: LOSARTAN 50 MG TAB PO SCH (09:00)
[2020-11-25] MEDS ORDERED: CLOPIDOGREL 75 MG TAB PO SCH (09:00)
[2020-11-25] MEDS ORDERED: ASPIRIN 81 MG PO SCH (09:00)
[2020-11-25] MEDS ORDERED: ATORVASTATIN 40 MG TAB PO SCH (09:00)
--- NOTE | 2020-11-25 09:20 | PN ---
PROGRESS NOTE Mrs. Willoughby is an 80-year-old female with known history of atrial fibrillation, history of hypertension who has been complaining of chest discomfort and abnormal myocardial perfusion imaging, underwent cardiac catheterization yesterday was found to have significant obstructive disease involving the right coronary artery, underwent stenting of that vessel. She is doing well this morning. She denies any chest pain. Her breathing is stable. No dizziness. No palpitation. She continues on aspirin once a day, Lipitor 40 mg daily, Plavix 75 mg daily, losartan 100 mg daily, metoprolol tartrate 50 mg 3 times a day. PHYSICAL EXAMINATION: Blood pressure running in the 120s to 140s with the heart rate in the 80s. LUNGS: Clear. HEART: Irregular, irregular. S1, S2. No S3. No rub. ABDOMEN: Soft, nontender. EXTREMITIES: No edema. Right radial pulse intact. LAB DATA: Lab data revealed BUN and creatinine 17 and 0.89, potassium 3.9. EKG without any acute changes. IMPRESSION: 1. Status post stenting of the right coronary artery. 2. Calcified coronary artery with moderate obstructive disease in the LAD. 3. Atrial fibrillation. 4. Cardiomyopathy. RECOMMENDATION: Patient will be discharged home today. She will continue on the aspirin, Plavix and Eliquis until she is seen in the office. Subsequently the aspirin will be stopped. She will be followed in regard to her LAD territory lesion and depending on her progress, further recommendation will be made. MMODL / IJN: [id number] /
== END 2020-11-25 12:39 | disposition home or self-care (01) ==
LOC: CATHCVL 07:46 → 3SCARD 10:45 → CATHCVL 11-25 12:39
PROVIDERS: ATTEND Internal Medicine Interventional Cardiology
DX: I25.10 Atherosclerotic heart disease of native coronary artery without angina pectoris (principal); I25.84 Coronary atherosclerosis due to calcified coronary lesion; I48.21 Permanent atrial fibrillation; I42.8 Other cardiomyopathies; I10 Essential (primary) hypertension; Z79.899 Other long term (current) drug therapy; Z82.49 Family history of ischemic heart disease and other diseases of the circulatory system; Z88.5 Allergy status to narcotic agent; Z90.710 Acquired absence of both cervix and uterus; Z98.890 Other specified postprocedural states; Z79.01 Long term (current) use of anticoagulants
CPT/HCPCS: 93458; 85347; 80048 ×2; 85025; C9600; C1769 ×3; C1887; C1725; C1874; C1894; J2250; J2001; J3010; J1644; Q9967

== ENCOUNTER → 2020-12-31 | Outpatient (CLI) | payer MEDICARE, OTHER ==
[2020-12-31 15:48] LABS: African American GFR (CKD) 61.6 (60.0-200.0); Albumin 4.7 g/dL (3.80-4.90); Albumin/Globulin Ratio 1.88 (1.60-3.17); Anion Gap 9.2 mmol/L (4.00-12.00); Calcium 10.5 mg/dL (8.7-10.3); Carbon Dioxide 28.8 mmol/L (21.6-31.8); Chol/HDL Ratio 4.03; Globulin 2.5 g/dL (1.6-3.3); LDL Cholesterol,Calculated 84.8 mg/dL (0.0-131.0); Non-African American GFR(CKD) 53.2 (60.0-200.0); Potassium 5.3 mmol/L (3.5-5.5); Total Bilirubin 0.7 mg/dL (0.2-1.2); Total Protein 7.2 g/dL (6.2-8.2); VLDL Calculation 33.2 mg/dL (5.00-40.00)
== END | disposition home or self-care (01) ==
LOC: LABWHC1 08:09
PROVIDERS: ATTEND Internal Medicine Interventional Cardiology
DX: E78.2 Mixed hyperlipidemia (principal)
CPT/HCPCS: 36415; 80053; 80061

== ENCOUNTER 2021-04-17 00:54 | Inpatient (IN) | payer MEDICARE, OTHER ==
[2021-04-17] MEDS ORDERED: SODIUM CHLORIDE 0.9% 1,000 ML IV STA (00:59)
[2021-04-17] MEDS ORDERED: LABETALOL 5 MG/ML VIAL MDV IVP STA (00:59)
[2021-04-17] MEDS ORDERED: HYDROmorphone 1 MG/ML 1 ML SYRINGE IVP STA (00:59)
--- NOTE | 2021-04-17 01:02 | ED ---
Fall HPI - General Stated Complaint: Fall Time Seen by Provider: 04/17/21 00:55 Source: EMS, RN notes reviewed, old records reviewed Limitations: altered mental status, physical limitation - History of Present Illness Initial Comments: This is a 81-year-old female to the ER who presents today for evaluation she presents today for evaluation of being found down, patient is currently a poor historian secondary to shakiness uneasiness and severe difficulty breathing with hypoxia and is brought in by EMS for evaluation. Patient had unknown downtime thought to be an hour was found on the ground from a standing position and is on blood thinner. Patient felt dizzy prior to being found down. Patient doesnt remember falling or passing out. Patient does remmeber screaming for help. Patient denies complaints of headache but feels very shaky and very uneasy, short of breath. MD Complaint: fall -: unknown Fall From: other (unknown likely from standing) When Fall Occurred: unsure Fall Witnessed: yes, by family, yes, by bystander Place Fall Occurred: home Loss of Consciousness: unsure Prolonged Down Time?: yes Symptoms Prior to Fall: none Location: head Severity: severe Severity scale (1-10): 10 Context: tripped/slipped Associated Symptoms: denies - Related Data Home Medications Medication Instructions Recorded Confirmed Gabapentin [Neurontin] 100 mg PO BID PRN 09/23/20 11/24/20 Losartan Potassium 100 mg PO DAILY 09/23/20 11/24/20 Aspirin [Adult Low Dose Aspirin EC] 81 mg PO DAILY 11/18/20 11/24/20 Omeprazole [PriLOSEC] 20 mg PO DAILY PRN 11/18/20 11/24/20 Spironolactone [Aldactone] 25 mg PO DAILY 11/18/20 11/24/20 hydroCHLOROthiazide [Hydrodiuril] 25 mg PO DAILY 11/18/20 11/24/20 Previous Rx's Medication Instructions Recorded Apixaban [Eliquis] 5 mg PO BID #60 tab 09/24/20 Metoprolol Tartrate [Lopressor] 50 mg PO TID #90 tab 09/25/20 rOPINIRole HCL [Requip] 0.25 mg PO HS #30 tab 10/04/20 Atorvastatin [Lipitor] 40 mg PO DAILY #90 tab 11/25/20 Clopidogrel [Plavix] 75 mg PO DAILY #90 tab 11/25/20 Nitroglycerin Sl Tabs [Nitrostat] 0.4 mg SUBLINGUAL Q5M PRN #25 tab 11/25/20 Allergies Allergy/AdvReac Type Severity Reaction Status Date / Time codeine AdvReac Vision Verified 11/24/20 08:05 Disturbance blood pressure pill Allergy Hallucinati Uncoded 11/24/20 08:05 ons Review of Systems ROS Statement: Those systems with pertinent positive or pertinent negative responses have been documented in the HPI. ROS Other: All systems not noted in ROS Statement are negative. Past Medical History Past Medical History: Atrial Fibrillation, Chest Pain / Angina, COPD, CVA/TIA, Fibromyalgia, GERD/Reflux, Hypertension, Pneumonia Additional Past Medical History / Comment(s): "mild stroke and heart problem Aug 2020", COVID Aug 2020 "tested in [place]" History of Any Multi-Drug Resistant Organisms: None Reported Past Surgical History: Bladder Surgery, Hysterectomy, Joint Replacement Additional Past Surgical History / Comment(s): bladder suspension, partial parathyroidectomy, jama shoulder replacement, jama cataracts Past Anesthesia/Blood Transfusion Reactions: No Reported Reaction Past Psychological History: Anxiety Smoking Status: Never smoker Past Alcohol Use History: Rare Past Drug Use History: None Reported - Past Family History Mother Family Medical History: No Reported History Father Family Medical History: No Reported History General Exam - General Exam Comments Initial Comments: GCS 15 significant hemineglect difficult to know if this is new or related to prior CVA which is evident on CT scan Limitations: altered mental status, physical limitation General appearance: alert, anxious, in distress, obese Head exam: Present: atraumatic, normocephalic, normal inspection Eye exam: Present: normal appearance, other (Left Gaze Preference). Absent: scleral icterus, conjunctival injection, periorbital swelling ENT exam: Present: normal exam, mucous membranes moist Neck exam: Present: normal inspection. Absent: tenderness, meningismus, lymp hadenopathy Respiratory exam: Present: respiratory distress, rhonchi, accessory muscle use, decreased breath sounds, prolonged expiratory. Absent: wheezes, rales, stridor Cardiovascular Exam: Present: tachycardia, irregular rhythm, normal heart soun ds. Absent: systolic murmur, diastolic murmur, rubs, gallop, clicks GI/Abdominal exam: Present: soft, normal bowel sounds. Absent: distended, tenderness, guarding, rebound, rigid Extremities exam: Present: normal inspection, full ROM, normal capillary refill. Absent: tenderness, pedal edema, joint swelling, calf tenderness Back exam: Present: normal inspection Neurological exam: Present: altered, oriented X3, CN II-XII intact Psychiatric exam: Present: normal affect, normal mood Skin exam: Present: warm, dry, intact, normal color. Absent: rash Course Vital Signs 04/17/21 04/17/21 04/17/21 00:57 01:35 01:43 Temperature 98 F Pulse Rate 121 H 92 88 Respiratory 24 Rate Blood Pressure 154/131 O2 Sat by Pulse 90 L Oximetry - Reevaluation(s) Reevaluation #1: 04/17/21 01:06 Medical record is reviewed 04/17/21 01:06 Level II trauma is paged on patient arrival, upgrade from fall Reevaluation #2: 04/17/21 01:06 Initial GCS 10, patient maintaining airway with normal oxygenation Patient is on Eliquis Reevaluation #3: 04/17/21 01:07 Blood pressure is treated pain is controlled in Afib started on cardizem Reevaluation #4: 04/17/21 01:54 Patient mental status continued to improve her breathing is worsening, patient is placed on BiPAP and currently is more improved blood pressure control, A. fib with RVR has converted to A. fib with normal rhythm Reevaluation #5: 04/17/21 03:35 code stroke is paged with daughter stating that neurologic findings which could be attributed to CT findings are not "old" - Consultations Consultation #1: spoke w Trauma Sx Dr Harden aware of pt Consultation #2: Dr Mello in ED evaluating patient Medical Decision Making - Medical Decision Making 81 female to the ER for evaluation. Patient is unknown historian able to answer questions but unsure of history of events. Patient is a fall on Eliquis likely from standing., Here she is found to be and A. fib with RVR which has resolved, hypertensive emergency with CHF - Lab Data Result diagrams: 04/17/21 01:07 04/17/21 01:07 Lab Results 04/17/21 04/17/21 04/17/21 Range/Units 01:07 01:07 01:07 WBC 14.9 H (3.8-10.6) k/uL RBC 4.48 (3.80-5.40) m/uL Hgb 15.1 (11.4-16.0) gm/dL Hct 44.6 (34.0-46.0) % MCV 99.3 (80.0-100.0) fL MCH 33.8 (25.0-35.0) pg MCHC 34.0 (31.0-37.0) g/dL RDW 13.7 (11.5-15.5) % Plt Count 249 (150-450) k/uL MPV 8.8 Neutrophils % 87 % Lymphocytes % 9 % Monocytes % 2 % Eosinophils % 1 % Basophils % 1 % Neutrophils # 12.9 H (1.3-7.7) k/uL Lymphocytes # 1.3 (1.0-4.8) k/uL Monocytes # 0.3 (0-1.0) k/uL Eosinophils # 0.1 (0-0.7) k/uL Basophils # 0.1 (0-0.2) k/uL PT 11.3 (9.0-12.0) sec INR 1.1 (<1.2) APTT 21.6 L (22.0-30.0) sec Sodium (137-145) mmol/L Potassium (3.5-5.1) mmol/L Chloride (98-107) mmol/L Carbon Dioxide (22-30) mmol/L Anion Gap mmol/L BUN (7-17) mg/dL Creatinine (0.52-1.04) mg/dL Est GFR (CKD-EPI)AfAm (>60 ml/min/1.73 sqM) Est GFR (CKD-EPI)NonAf (>60 ml/min/1.73 sqM) Glucose (74-99) mg/dL POC Glucose (mg/dL) (75-99) mg/dL POC Glu Fire Prevention Inspector ID Lactic Ac Sepsis Rflx Plasma Lactic Acid Buck (0.7-2.0) mmol/L Calcium (8.4-10.2) mg/dL Total Bilirubin (0.2-1.3) mg/dL AST (14-36) U/L ALT (4-34) U/L Alkaline Phosphatase (38-126) U/L Creatine Kinase (30-135) U/L Troponin I (0.000-0.034) ng/mL NT-Pro-B Natriuret Pep pg/mL Total Protein (6.3-8.2) g/dL Albumin (3.5-5.0) g/dL Urine Color Light Yellow Urine Appearance Clear (Clear) Urine pH 5.5 (5.0-8.0) Ur Specific [place] 1.010 (1.001-1.035) Urine Protein 1+ H (Negative) Urine Glucose (UA) Negative (Negative) Urine Ketones Negative (Negative) Urine Blood Negative (Negative) Urine Nitrite Negative (Negative) Urine Bilirubin Negative (Negative) Urine Urobilinogen <2.0 (<2.0) mg/dL Ur Leukocyte Esterase Negative (Negative) Urine RBC 1 (0-5) /hpf Urine WBC 1 (0-5) /hpf Ur Squamous Epith Cells <1 (0-4) /hpf Urine Opiates Screen Not Detected (NotDetected) Ur Oxycodone Screen Not Detected (NotDetected) Urine Methadone Screen Not Detected (NotDetected) Ur Propoxyphene Screen Not Detected (NotDetected) Ur Barbiturates Screen Not Detected (NotDetected) U Tricyclic Antidepress Not Detected (NotDetected) Ur Phencyclidine Scrn Not Detected (NotDetected) Ur Amphetamines Screen Not Detected (NotDetected) U Methamphetamines Scrn Not Detected (NotDetected) U Benzodiazepines Scrn Not Detected (NotDetected) Urine Cocaine Screen Not Detected (NotDetected) U Marijuana (THC) Screen Not Detected (NotDetected) Serum Alcohol mg/dL Blood Type Blood Type Confirm Blood Type Recheck Bld Type Recheck Status Antibody Screen Spec Expiration Date 04/17/21 04/17/21 04/17/21 Range/Units 01:07 01:07 01:07 WBC (3.8-10.6) k/uL RBC (3.80-5.40) m/uL Hgb (11.4-16.0) gm/dL Hct (34.0-46.0) % MCV (80.0-100.0) fL MCH (25.0-35.0) pg MCHC (31.0-37.0) g/dL RDW (11.5-15.5) % Plt Count (150-450) k/uL MPV Neutrophils % % Lymphocytes % % Monocytes % % Eosinophils % % Basophils % % Neutrophils # (1.3-7.7) k/uL Lymphocytes # (1.0-4.8) k/uL Monocytes # (0-1.0) k/uL Eosinophils # (0-0.7) k/uL Basophils # (0-0.2) k/uL PT (9.0-12.0) sec INR (<1.2) APTT (22.0-30.0) sec Sodium 141 (137-145) mmol/L Potassium 4.6 (3.5-5.1) mmol/L Chloride 103 (98-107) mmol/L Carbon Dioxide 23 (22-30) mmol/L Anion Gap 15 mmol/L BUN 29 H (7-17) mg/dL Creatinine 1.10 H (0.52-1.04) mg/dL Est GFR (CKD-EPI)AfAm 54 (>60 ml/min/1.73 sqM) Est GFR (CKD-EPI)NonAf 47 (>60 ml/min/1.73 sqM) Glucose 233 H (74-99) mg/dL POC Glucose (mg/dL) (75-99) mg/dL POC Glu Fire Prevention Inspector ID Lactic Ac Sepsis Rflx Plasma Lactic Acid Buck 3.4 H* (0.7-2.0) mmol/L Calcium 10.4 H (8.4-10.2) mg/dL Total Bilirubin 0.6 (0.2-1.3) mg/dL AST 57 H (14-36) U/L ALT 47 H (4-34) U/L Alkaline Phosphatase 81 (38-126) U/L Creatine Kinase 116 (30-135) U/L Troponin I 0.014 (0.000-0.034) ng/mL NT-Pro-B Natriuret Pep pg/mL Total Protein 8.2 (6.3-8.2) g/dL Albumin 5.1 H (3.5-5.0) g/dL Urine Color Urine Appearance (Clear) Urine pH (5.0-8.0) Ur Specific [place] (1.001-1.035) Urine Protein (Negative) Urine Glucose (UA) (Negative) Urine Ketones (Negative) Urine Blood (Negative) Urine Nitrite (Negative) Urine Bilirubin (Negative) Urine Urobilinogen (<2.0) mg/dL Ur Leukocyte Esterase (Negative) Urine RBC (0-5) /hpf Urine WBC (0-5) /hpf Ur Squamous Epith Cells (0-4) /hpf Urine Opiates Screen (NotDetected) Ur Oxycodone Screen (NotDetected) Urine Methadone Screen (NotDetected) Ur Propoxyphene Screen (NotDetected) Ur Barbiturates Screen (NotDetected) U Tricyclic Antidepress (NotDetected) Ur Phencyclidine Scrn (NotDetected) Ur Amphetamines Screen (NotDetected) U Methamphetamines Scrn (NotDetected) U Benzodiazepines Scrn (NotDetected) Urine Cocaine Screen (NotDetected) U Marijuana (THC) Screen (NotDetected) Serum Alcohol <10 mg/dL Blood Type Blood Type Confirm Blood Type Recheck Bld Type Recheck Status Antibody Screen Spec Expiration Date 04/17/21 04/17/21 04/17/21 Range/Units 01:22 01:22 01:30 WBC (3.8-10.6) k/uL RBC (3.80-5.40) m/uL Hgb (11.4-16.0) gm/dL Hct (34.0-46.0) % MCV (80.0-100.0) fL MCH (25.0-35.0) pg MCHC (31.0-37.0) g/dL RDW (11.5-15.5) % Plt Count (150-450) k/uL MPV Neutrophils % % Lymphocytes % % Monocytes % % Eosinophils % % Basophils % % Neutrophils # (1.3-7.7) k/uL Lymphocytes # (1.0-4.8) k/uL Monocytes # (0-1.0) k/uL Eosinophils # (0-0.7) k/uL Basophils # (0-0.2) k/uL PT (9.0-12.0) sec INR (<1.2) APTT (22.0-30.0) sec Sodium (137-145) mmol/L Potassium (3.5-5.1) mmol/L Chloride (98-107) mmol/L Carbon Dioxide (22-30) mmol/L Anion Gap mmol/L BUN (7-17) mg/dL Creatinine (0.52-1.04) mg/dL Est GFR (CKD-EPI)AfAm (>60 ml/min/1.73 sqM) Est GFR (CKD-EPI)NonAf (>60 ml/min/1.73 sqM) Glucose (74-99) mg/dL POC Glucose (mg/dL) 271 H (75-99) mg/dL POC Glu Fire Prevention Inspector ID Jhon Russo Lactic Ac Sepsis Rflx Plasma Lactic Acid Buck (0.7-2.0) mmol/L Calcium (8.4-10.2) mg/dL Total Bilirubin (0.2-1.3) mg/dL AST (14-36) U/L ALT (4-34) U/L Alkaline Phosphatase (38-126) U/L Creatine Kinase (30-135) U/L Troponin I (0.000-0.034) ng/mL NT-Pro-B Natriuret Pep 2160 pg/mL Total Protein (6.3-8.2) g/dL Albumin (3.5-5.0) g/dL Urine Color Urine Appearance (Clear) Urine pH (5.0-8.0) Ur Specific [place] (1.001-1.035) Urine Protein (Negative) Urine Glucose (UA) (Negative) Urine Ketones (Negative) Urine Blood (Negative) Urine Nitrite (Negative) Urine Bilirubin (Negative) Urine Urobilinogen (<2.0) mg/dL Ur Leukocyte Esterase (Negative) Urine RBC (0-5) /hpf Urine WBC (0-5) /hpf Ur Squamous Epith Cells (0-4) /hpf Urine Opiates Screen (NotDetected) Ur Oxycodone Screen (NotDetected) Urine Methadone Screen (NotDetected) Ur Propoxyphene Screen (NotDetected) Ur Barbiturates Screen (NotDetected) U Tricyclic Antidepress (NotDetected) Ur Phencyclidine Scrn (NotDetected) Ur Amphetamines Screen (NotDetected) U Methamphetamines Scrn (NotDetected) U Benzodiazepines Scrn (NotDetected) Urine Cocaine Screen (NotDetected) U Marijuana (THC) Screen (NotDetected) Serum Alcohol mg/dL Blood Type A Positive Blood Type Confirm Blood Type Recheck No Previous Record Bld Type Recheck Status CABO Indicated Antibody Screen NEGATIVE Spec Expiration Date 04/20/2021 - 232904/17/21 04/17/21 Range/Units 01:44 01:45 WBC (3.8-10.6) k/uL RBC (3.80-5.40) m/uL Hgb (11.4-16.0) gm/dL Hct (34.0-46.0) % MCV (80.0-100.0) fL MCH (25.0-35.0) pg MCHC (31.0-37.0) g/dL RDW (11.5-15.5) % Plt Count (150-450) k/uL MPV Neutrophils % % Lymphocytes % % Monocytes % % Eosinophils % % Basophils % % Neutrophils # (1.3-7.7) k/uL Lymphocytes # (1.0-4.8) k/uL Monocytes # (0-1.0) k/uL Eosinophils # (0-0.7) k/uL Basophils # (0-0.2) k/uL PT (9.0-12.0) sec INR (<1.2) APTT (22.0-30.0) sec Sodium (137-145) mmol/L Potassium (3.5-5.1) mmol/L Chloride (98-107) mmol/L Carbon Dioxide (22-30) mmol/L Anion Gap mmol/L BUN (7-17) mg/dL Creatinine (0.52-1.04) mg/dL Est GFR (CKD-EPI)AfAm (>60 ml/min/1.73 sqM) Est GFR (CKD-EPI)NonAf (>60 ml/min/1.73 sqM) Glucose (74-99) mg/dL POC Glucose (mg/dL) (75-99) mg/dL POC Glu Fire Prevention Inspector ID Lactic Ac Sepsis Rflx Y Plasma Lactic Acid Buck (0.7-2.0) mmol/L Calcium (8.4-10.2) mg/dL Total Bilirubin (0.2-1.3) mg/dL AST (14-36) U/L ALT (4-34) U/L Alkaline Phosphatase (38-126) U/L Creatine Kinase (30-135) U/L Troponin I (0.000-0.034) ng/mL NT-Pro-B Natriuret Pep pg/mL Total Protein (6.3-8.2) g/dL Albumin (3.5-5.0) g/dL Urine Color Urine Appearance (Clear) Urine pH (5.0-8.0) Ur Specific [place] (1.001-1.035) Urine Protein (Negative) Urine Glucose (UA) (Negative) Urine Ketones (Negative) Urine Blood (Negative) Urine Nitrite (Negative) Urine Bilirubin (Negative) Urine Urobilinogen (<2.0) mg/dL Ur Leukocyte Esterase (Negative) Urine RBC (0-5) /hpf Urine WBC (0-5) /hpf Ur Squamous Epith Cells (0-4) /hpf Urine Opiates Screen (NotDetected) Ur Oxycodone Screen (NotDetected) Urine Methadone Screen (NotDetected) Ur Propoxyphene Screen (NotDetected) Ur Barbiturates Screen (NotDetected) U Tricyclic Antidepress (NotDetected) Ur Phencyclidine Scrn (NotDetected) Ur Amphetamines Screen (NotDetected) U Methamphetamines Scrn (NotDetected) U Benzodiazepines Scrn (NotDetected) Urine Cocaine Screen (NotDetected) U Marijuana (THC) Screen (NotDetected) Serum Alcohol mg/dL Blood Type Blood Type Confirm A Positive Blood Type Recheck Bld Type Recheck Status Antibody Screen Spec Expiration Date - EKG Data -: EKG Interpreted by Me (EKG shows sinus rhythm 88 MA 98 QRS 80 QTc 474) - Radiology Data Radiology results: report reviewed (CT brain C spine positive for ICH), image reviewed Critical Care Time Critical Care Time: Yes Total Critical Care Time: 31 Disposition Clinical Impression: Fall, Hypertensive emergency, Hypoxia, CHF (congestive heart failure), Atrial fibrillation with rapid ventricular response, Anxiety, Syncope, CVA (cerebral vascular accident) Disposition: ADMITTED IP TO THIS [facility] Condition: Serious Is patient prescribed a controlled substance at d/c from ED?: No
[2021-04-17] MEDS ORDERED: Kcentra PER PHARMACY 1 EACH MISC MISCELLANE PRN (01:03)
[2021-04-17] MEDS ORDERED: DILTIAZEM DRIP BOLUS FROM BAG 1 MG SOLN IV ONE (01:09)
[2021-04-17] MEDS ORDERED: DILTIAZEM 125 MG in SODIUM CHLORIDE 0.9% 100 ML IV SCH (01:15)
[2021-04-17 01:17] LABS: Basophils # (A) 0.1 k/uL (0-0.2); Basophils % (A) 1 %; Eosinophils # (A) 0.1 k/uL (0-0.7); Eosinophils % (A) 1 %; HCT 44.6 % (34.0-46.0); HGB 15.1 gm/dL (11.4-16.0); Lymphocytes # (A) 1.3 k/uL (1.0-4.8); Lymphocytes % (A) 9 %; MCH 33.8 pg (25.0-35.0); MCV 99.3 fL (80.0-100.0); Mean Platelet Volume 8.8; Monocytes # (A) 0.3 k/uL (0-1.0); Monocytes % (A) 2 %; Neutrophils # (A) 12.9 k/uL (1.3-7.7); Neutrophils % (A) 87 %; Platelet Count 249 k/uL (150-450); RBC 4.48 m/uL (3.80-5.40); RDW 13.7 % (11.5-15.5); WBC 14.9 k/uL (3.8-10.6)
[2021-04-17] MEDS ORDERED: IPRATROPIUM-ALBUTEROL 3 ML NEB INHALATION STA (01:21)
[2021-04-17] MEDS ORDERED: FUROSEMIDE 10 MG/ML 10 ML VIAL IV STA (01:22)
[2021-04-17 01:23] LABS: Glucose,Whole Blood 271 mg/dL (75-99)
[2021-04-17] MEDS: ONDANSETRON 4 MG/2 ML VIAL IVP STA ×2 (01:23→01:51)
[2021-04-17] MEDS ORDERED: MIDAZOLAM 1 MG/ML 5 ML VIAL IV STA (01:28)
--- NOTE | 2021-04-17 01:29 | CT ---
EXAMINATION TYPE: CT brain sylvieine wo con DATE OF EXAM: 04/17/2021 COMPARISON: None HISTORY: fall CT DLP: 1719.2 mGycm Automated exposure control for dose reduction was used. Images of the brain and cervical spine were obtained without contrast. There is large area of hypodensity in the right temporal lobe consistent with old right middle cerebr al artery infarct. There is no mass effect nor midline shift. There is no sign of intracranial hemorr anastacia. The calvarium is intact. Cervical vertebra have normal alignment. Exam limited slightly by motion. There is degenerative disc space narrowing throughout the cervical spine with spurring of the endplates. There is multilevel mil d hypertrophic facet arthropathy. Prevertebral soft tissues are intact. There is no evidence of a fra cture. There is anterior spurring at C5-6 and C6-7. 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 No acute intracranial abnormality. No hemorrhage. Spondylotic changes in the cervical spine. No fracture.
--- NOTE | 2021-04-17 01:31 | XR ---
EXAMINATION TYPE: XR chest 1V portable DATE OF EXAM: 04/17/2021 COMPARISON: 10/02/2020 HISTORY: Trauma. Short of breath. TECHNIQUE: FINDINGS: Heart is enlarged. There is some pulmonary vascular congestion. There is bilateral shoulder prosthesis. There are chest leads. Costophrenic angles are clear. IMPRESSION: Pulmonary congestion appears new compared to old exam and consistent with congestive hear t failure. Stable mild cardiomegaly.
[2021-04-17 01:36] LABS: ALT 47 U/L (4-34); AST 57 U/L (14-36); African American GFR (CKD) 54 (>60 ml/min/1.73 sqM); Albumin 5.1 g/dL (3.5-5.0); Alcohol <10 mg/dL; Alkaline Phosphatase 81 U/L (38-126); Anion Gap 15 mmol/L; Blood Urea Nitrogen 29 mg/dL (7-17); Calcium 10.4 mg/dL (8.4-10.2); Carbon Dioxide 23 mmol/L (22-30); Chloride 103 mmol/L (98-107); Creatine Kinase 116 U/L (30-135); Glucose 233 mg/dL (74-99); Non-African American GFR(CKD) 47 (>60 ml/min/1.73 sqM); Potassium 4.6 mmol/L (3.5-5.1); Sodium 141 mmol/L (137-145); Total Bilirubin 0.6 mg/dL (0.2-1.3); Total Protein 8.2 g/dL (6.3-8.2)
[2021-04-17 01:42] LABS: INR 1.1 (<1.2); Partial Thromboplastin Time 21.6 sec (22.0-30.0); Prothrombin Time 11.3 sec (9.0-12.0)
[2021-04-17] MEDS ORDERED: ENALAPRILAT 1.25 MG/ML 1 ML VIAL IVP STA (02:14)
[2021-04-17] MEDS ORDERED: NALOXONE 0.4 MG/ML 1 ML VIAL IV PRN (02:48)
[2021-04-17] MEDS ORDERED: ONDANSETRON 4 MG/2 ML VIAL IVP PRN (02:48)
[2021-04-17] MEDS ORDERED: HYDROmorphone 1 MG/ML 1 ML SYRINGE IVP PRN (02:48)
[2021-04-17 03:12] LABS: Appearance,Urine Clear (Clear); Bilirubin,Urine Negative (Negative); Blood,Urine Negative (Negative); Color,Urine Light Yellow; Glucose,Urine (UA) Negative (Negative); Ketones,Urine Negative (Negative); Leukocyte Esterase,Urine Negative (Negative); Nitrite,Urine Negative (Negative); PH, Urine 5.5 (5.0-8.0); Protein,Urine 1+ (Negative); RBC,Urine 1 /hpf (0-5); Squamous Epithelial Cell,Urine <1 /hpf (0-4); Urobilinogen,Urine <2.0 mg/dL (<2.0); WBC,Urine 1 /hpf (0-5)
[2021-04-17 03:22] LABS: Amphetamine Screen,Urine Not Detected (NotDetected); Barbiturate Screen,Urine Not Detected (NotDetected); Benzodiazepines Screen,Urine Not Detected (NotDetected); Cocaine Screen,Urine Not Detected (NotDetected); Methadone Screen, Urine Not Detected (NotDetected); Opiate Screen,Urine Not Detected (NotDetected); Oxycodone Screen, Urine Not Detected (NotDetected); Phencyclidine Screen,Urine Not Detected (NotDetected); Tricyclic Antidepressant,Urine Not Detected (NotDetected); Urn Cannabinoid Scrn Not Detected (NotDetected)
--- NOTE | 2021-04-17 03:26 | XR ---
EXAMINATION TYPE: XR Hip LT and AP Pelvis DATE OF EXAM: 04/17/2021 COMPARISON: NONE HISTORY: Fall. Pain. TECHNIQUE: 3 views FINDINGS: Pelvic ring appears intact. I see no fracture nor dislocation. Proximal left femur is intac t. Hip joint space is fairly normal. Sacroiliac joints appear intact. IMPRESSION: No acute abnormality of the pelvis and left hip.
[2021-04-17] MEDS: FUROSEMIDE 10 MG/ML 4 ML VIAL IV SCH ×2 (03:37→18:06)
--- NOTE | 2021-04-17 04:19 | CT ---
EXAMINATION TYPE: CT angio head neck DATE OF EXAM: 04/17/2021 COMPARISON: None HISTORY: Stroke CT DLP: 820 mGycm Automated exposure control for dose reduction was used. CONTRAST: Performed with IV Contrast, patient injected with 65 mL of Isovue 370. Images obtained from the level of the aortic arch to the vertex of the brain with IV contrast. There is normal branching pattern of the great vessels on the aortic arch. There is bilateral arteria l flow in the subclavian arteries. There is arterial flow in the common internal and external carotid arteries bilaterally. There is arterial flow in the vertebral arteries. There is plaque formation at the carotid artery bifurcations. There is estimated 25% stenosis origin of the right internal caroti d artery. There is estimated 25% stenosis origin left internal carotid artery related to plaque forma tion. There is arterial flow in both vertebral arteries. Right vertebral artery is larger than the le ft. There is arterial flow in the vertebrobasilar artery system. There is no evidence of carotid or v ertebral artery aneurysm or dissection. There is arterial flow in the anterior middle and posterior cerebral arteries. There is evidence of o ld large right temporal lobe infarct. There is hypodensity right temporal lobe. I see no evidence of intracranial arterial stenosis. There is normal enhancement of the venous sinuses. There is no mass e ffect. I see no aneurysm or neovascularity. IMPRESSION: Old right temporal lobe infarct. No intracranial angiographic abnormality. No evidence of hemodynamic stenosis of the carotid and vertebral arteries. There is approximately 25% stenosis at the origins of the internal carotid arteries bilaterally.
--- NOTE | 2021-04-17 04:29 | P.CONS ---
History of Present Illness - Reason for Consult Consult date: 04/17/21 - History of Present Illness Patient is an 81-year-old female with a PMH of A. 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 The patient notes that all she remembers feeling dizzy and then finding herself on the ground in her apartment. The patient notes that her patio door was open and she yelled for help until a bystander heard her and called 911. Upon arrival at the emergency room, the patient was in respiratory distress, hypoxic and tachycardic with vitals BP 154/131, pulse ox 90% at 4 L, and pulse 121. She was placed on BiPAP with subsequent improvement. Laboratory evaluation revealed leukocytosis with 14.9, BUN 29, creatinine 1.10, glucose 233, lactic acid 3.4, AST 57, ALT 47, CK 116, proBNP 2160, and troponin I 0.014. CT brain revealed an old right middle cerebral artery infarct with no hemorrhage. Chest x-ray was consistent with pulmonary edema and congestive heart failure. EKG revealed sinus rhythm with short IN at 88 bpm. Pelvis x-ray was unremarkable. At time of my interview, patient reported feeling well. She reported some shortness of breath which had improved but denied any trauma from the fall. The daughter noted that the vomitus was found besides her in her apartment. Patient denied chest discomfort, fever, chills, abdominal pain, cough. During the examination, it became clear that she was exhibiting left-sided neglect. Code stroke was activated. Discussed case with neuro batting machine operator insulation on-call doctor Julianna who upon reviewing the films recommended that patient be continued on her home Plavix with Eliquis being held currently. He recommended obtaining a brain MRI in am to further classify the CVA for resumption of Eliquis. The patient was admitted to the surgery service with medicine on consult. Review of systems: Pertinent positives and negatives as discussed in HPI, a complete review of systems was performed and all other systems are negative. Physical examination: General: non toxic, no distress, appears at stated age, obese, on BiPap Derm: no unusual rashes/lesions no unusual ecchymoses, warm, dry Head: atraumatic, normocephalic, symmetric Eyes: EOMI, no lid lag, anicteric sclera, pupils equal round reactive to light ENT: Nose and ears atraumatic, no thrush, no pharyngeal erythema Neck: No thyromegaly, no cervical lymphadenopathy, trachea midline, supple Mouth: no lip lesion, mucus membranes moist Cardiovascular: S1S2 reg, no murmur, positive posterior tibial pulse bilateral, no edema, capillary refill less than 2 seconds Lungs: Mild bilateral rales, no wheezing or ronchi, no accessory muscle use Abdominal: soft, nontender to palpation, no guarding, no appreciable organomegaly, normal bowel sounds Ext: no gross muscle atrophy, L yenni-neglect with LUE ataxia and pronator drift, muscle strength 5 out of 5 RUE and RLE, no contractures Neuro: CN II-XI grossly intact, finger to nose abnormal on R-side Psych: Alert, oriented, appropriate affect Assessment/plan L hemineglect, suspected acute CVA -Neuro-Client Liaison recs appreciated -C/w Plavix. Hold off on Eliquis pending MRI -Neuro-checks -Permissive HTN -C/w Lipitor -PT consult -SKIAGRAPHER eval -Echocardigram ordered -Cardiac monitoring -Neuro consult Syncope -Unclear etiology -F/u Echo -Cardiac monitoring -Fall, seizure precautions Acute systolic CHF exacerbation -Continue with Lasix -Cardiac monitoring -Cardiology consulted -intake and output -Daily weights -C/w Bipap for now Lactic acidosis -IV fluids and monitor for resolution Abnormal LFTs -Monitor for now Chronic conditions: Type II DM, hypertension, hyperlipidemia, COPD, A. fib -Continue with home meds -This was associated with blood glucose monitoring -Check A1c -Hold Eliquis -Permissive hypertension DVT prophylaxis -IPCDs Past Medical History Past Medical History: Atrial Fibrillation, Chest Pain / Angina, COPD, CVA/TIA, Fibromyalgia, GERD/Reflux, Hypertension, Pneumonia Additional Past Medical History / Comment(s): "mild stroke and heart problem Aug 2020", COVID Aug 2020 "tested in [place]" History of Any Multi-Drug Resistant Organisms: None Reported Past Surgical History: Bladder Surgery, Hysterectomy, Joint Replacement Additional Past Surgical History / Comment(s): bladder suspension, partial parathyroidectomy, jama shoulder replacement, jama cataracts Past Anesthesia/Blood Transfusion Reactions: No Reported Reaction Past Psychological History: Anxiety Smoking Status: Never smoker Past Alcohol Use History: Rare Past Drug Use History: None Reported - Past Family History Mother Family Medical History: No Reported History Father Family Medical History: Hypertension Medications and Allergies Home Medications Medication Instructions Recorded Confirmed Type Gabapentin [Neurontin] 100 mg PO BID PRN 09/23/20 11/24/20 History Losartan Potassium 100 mg PO DAILY 09/23/20 11/24/20 History Apixaban [Eliquis] 5 mg PO BID #60 tab 09/24/20 11/24/20 Rx Metoprolol Tartrate [Lopressor] 50 mg PO TID #90 tab 09/25/20 11/24/20 Rx rOPINIRole HCL [Requip] 0.25 mg PO HS #30 tab 10/04/20 11/24/20 Rx Aspirin [Adult Low Dose Aspirin EC] 81 mg PO DAILY 11/18/20 11/24/20 History Omeprazole [PriLOSEC] 20 mg PO DAILY PRN 11/18/20 11/24/20 History Spironolactone [Aldactone] 25 mg PO DAILY 11/18/20 11/24/20 History hydroCHLOROthiazide [Hydrodiuril] 25 mg PO DAILY 11/18/20 11/24/20 History Atorvastatin [Lipitor] 40 mg PO DAILY #90 tab 11/25/20 Rx Clopidogrel [Plavix] 75 mg PO DAILY #90 tab 11/25/20 Rx Nitroglycerin Sl Tabs [Nitrostat] 0.4 mg SUBLINGUAL Q5M PRN #25 tab 11/25/20 Rx Allergies Allergy/AdvReac Type Severity Reaction Status Date / Time codeine AdvReac Vision Verified 11/24/20 08:05 Disturbance blood pressure pill Allergy Hallucinati Uncoded 11/24/20 08:05 ons Physical Exam Vitals: Vital Signs Temp Pulse Resp BP Pulse Ox 04/17/21 01:43 88 04/17/21 01:35 92 04/17/21 00:57 98 F 121 H 24 154/131 90 L Intake and Output 04/16/21 04/16/21 04/17/21 14:59 22:59 06:59 Other: Weight 83.007 kg Results CBC & Chem 7: 04/17/21 01:07 04/17/21 01:07 Labs: Abnormal Lab Results - Last 24 Hours (Table) 04/17/21 04/17/21 04/17/21 Range/Units 01:07 01:07 01:07 WBC 14.9 H (3.8-10.6) k/uL Neutrophils # 12.9 H (1.3-7.7) k/uL APTT 21.6 L (22.0-30.0) sec BUN (7-17) mg/dL Creatinine (0.52-1.04) mg/dL Glucose (74-99) mg/dL POC Glucose (mg/dL) (75-99) mg/dL Plasma Lactic Acid Buck (0.7-2.0) mmol/L Calcium (8.4-10.2) mg/dL AST (14-36) U/L ALT (4-34) U/L Albumin (3.5-5.0) g/dL Urine Protein 1+ H (Negative) 04/17/21 04/17/21 04/17/21 Range/Units 01:07 01:07 01:22 WBC (3.8-10.6) k/uL Neutrophils # (1.3-7.7) k/uL APTT (22.0-30.0) sec BUN 29 H (7-17) mg/dL Creatinine 1.10 H (0.52-1.04) mg/dL Glucose 233 H (74-99) mg/dL POC Glucose (mg/dL) 271 H (75-99) mg/dL Plasma Lactic Acid Buck 3.4 H* (0.7-2.0) mmol/L Calcium 10.4 H (8.4-10.2) mg/dL AST 57 H (14-36) U/L ALT 47 H (4-34) U/L Albumin 5.1 H (3.5-5.0) g/dL Urine Protein (Negative)
[2021-04-17 06:26] LABS: Glucose,Whole Blood 144 mg/dL (75-99)
[2021-04-17] MEDS ORDERED: PANTOPRAZOLE 40 MG/10 ML VIAL IV SCH (09:00)
[2021-04-17] MEDS: CLOPIDOGREL 75 MG TAB PO SCH (09:40)
[2021-04-17] MEDS: INSULIN ASPART (NovoLOG) 100 UNIT/ML VIAL SQ SCH ×4 (09:41→20:41)
[2021-04-17] MEDS ORDERED: ALBUTEROL NEBULIZED 2.5 MG/3 ML INHALATION PRN (10:39)
--- NOTE | 2021-04-17 11:41 | P.PN ---
Progress Note - Text Progress Note Date: 04/17/21 I saw and evaluated this patient independently. I agree with the assessment and plan as documented by my colleague earlier this morning. This patient has severe left sided neglect which is reportedly new and highly concerning for an acute CVA. Pending MRI. Plavix continued, Eliquis currently on hold pending MRI. 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 Risk factor evaluation with echo, telemetry monitoring, and A1c/Lipid panel/TSH.
--- NOTE | 2021-04-17 11:59 | P.CNNES ---
History of Present Illness Consult date: 04/17/21 Requesting physician: Eron Mello Reason for Consult: CVA History of Present Illness: This is a Tele-Neurology consultation performed on this patient who is a 81-year-old female came to the hospital by ambulance this morning shortly after midnight at 12:54 AM. According to EMS flow sheet, they were called for a partial fall outside the door wall. Unknown how long down time. Patient was alert and oriented 4. Patient was placed in a c-collar. Patient took could not remember how she fell. Patient was placed on stretcher and secured. Patient is on blood thinners. She apparently had vomited prior to arrival of EMS. No hematoma noted on her head. Patient was complaining of left hip pain. No shortening or rotation noted. Patient was moving all 4 extremities normally. Saturation was low. Patient's extremities cold but lips also cyanotic. Patient was placed on 4 L by nasal cannula. Patient denied chest pain. Patient was complaining of dry mouth. Her blood glucose was 287. No history of diabetes. Patient's BP was elevated and started to gaze to the left. High suspicion for possible head injury. Patient then started to have slurred speech. Her blood pressure at the scene was 193/112, pulse rate 88, respiration 20 saturation 93%. GCS was 14. Blood pressure at the scene was rechecked 245 /121. Patient's daughter was also present. Apparently patient lives by herself, does not use any assistive device. About a week ago she saw her primary physician and her blood sugars were noted to be low in the 40s. Patient is not diabetic. She was recommended to take small meals 6 times a day. Patient's daughter also states that for last couple weeks she has been feeling disoriented. She does have macular degeneration. Patient has history of a small CVA with no residual deficits in August 2020. At that time she also suffered from Covid pneumonia. Patient's daughter states that the only symptoms of stroke consisted of headache above the right eye, and she was moaning a lot. Patient yesterday states that she became dizzy first and then she fell down. She did not pass out. She denied any stroke symptoms like focal weakness, slurred speech. Patient denies hitting her head. Denies loss of consciousness. Per her daughter, patient once she fell down, she started yelling and some of the neighbors heard her and called the ambulance. On arrival her blood pressure was 193/112. Pulse rate 88. CT of the head showed old right middle cerebral artery infarct. No acute intracranial abnormality no hemorrhage. CT of the cervical spine showed spondylotic changes in the cervical spine, no fracture. Chest x-ray showed pulmonary congestion appears new compared to old exam and consistent with congestive heart failure. Stable mild cardiomegaly. EKG shows sinus rhythm with short SC. X-ray of the hip and pelvis showed no fracture. Patient had a CTA of head and neck, which revealed old right temporal lobe infarct. No intracranial angiographic abnormality. No evidence of hemodynamic significant stenosis of the carotid and vertebral arteries. There is approximately 25% stenosis of the origin of the internal carotid arteries bilaterally. Patient had a 2-D echo performed on 09/23/2020 which revealed normal left ventricular size. Moderate concentric LVH. EF is between 35-40%. Left atrium is moderately dilated. Mild mitral annular calcification. Mild MR. Patient's blood test shows WBC 14.9 hemoglobin 15.1, platelets 249. PT/PTT normal, electrolytes normal, BUN/creatinine 29, creatinine 1.10. Calcium 10.4 AST 57, ALT 47. Troponin negative. UA and urine drug screen negative. Blood alcohol level negative. Plasma lactate was elevated 3.4. Patient is on Eliquis 5 mg twice a day, Requip 0.25 mg tablet at bedtime, spironolactone 25 mg, Lipitor 40 mg, Plavix 75 mg, Singulair, metoprolol, Hyzaar isosorbide Lexapro 10 mg, Pepcid. Patient states that she is fully compliant with the medication, takes Eliquis religiously twice a day. She states that she only gets dizzy when she is hungry. Patient has never smoked although she has been around smokers with secondhand smoking. Denies any alcohol. She has hypertension for 25-30 years. Review of Systems Patient denies any chest pain, shortness of breath, wheezing or cough. Denies any abdominal pain. She had some nausea yesterday and vomiting. Some visual disturbance. No hoarseness, sore throat, dysphagia. Denies any fever or chills. Complains of some headache over the right frontal region. Denies any rash. No suicidal thoughts. No pain in the legs. Past Medical History Past Medical History: Atrial Fibrillation, Chest Pain / Angina, COPD, CVA/TIA, Fibromyalgia, GERD/Reflux, Hypertension, Pneumonia Additional Past Medical History / Comment(s): "mild stroke and heart problem Aug 2020", COVID Aug 2020 "tested in [place]" History of Any Multi-Drug Resistant Organisms: None Reported Past Surgical History: Bladder Surgery, Hysterectomy, Joint Replacement Additional Past Surgical History / Comment(s): bladder suspension, partial parathyroidectomy, jama shoulder replacement, jama cataracts Past Anesthesia/Blood Transfusion Reactions: No Reported Reaction Smoking Status: Never smoker - Past Family History Mother Family Medical History: No Reported History Father Family Medical History: No Reported History Medications and Allergies Home Medications Medication Instructions Recorded Confirmed Type Apixaban [Eliquis] 5 mg PO BID #60 tab 09/24/20 04/17/21 Rx rOPINIRole HCL [Requip] 0.25 mg PO HS #30 tab 10/04/20 04/17/21 Rx Spironolactone [Aldactone] 25 mg PO DAILY 11/18/20 04/17/21 History Atorvastatin [Lipitor] 40 mg PO DAILY #90 tab 11/25/20 04/17/21 Rx Clopidogrel [Plavix] 75 mg PO DAILY #90 tab 11/25/20 04/17/21 Rx Albuterol Inhaler [Ventolin Hfa 2 puff INHALATION RT-Q4H PRN 04/17/21 04/17/21 History Inhaler] Escitalopram [Lexapro] 10 mg PO DAILY 04/17/21 04/17/21 History Famotidine 40 mg PO DAILY 04/17/21 04/17/21 History Isosorbide Mononitrate ER [Imdur] 30 mg PO DAILY 04/17/21 04/17/21 History Losartan/Hydrochlorothiazide 1 tab PO DAILY 04/17/21 04/17/21 History [Hyzaar 100-25 Tablet] Metoprolol Succinate [Toprol XL] 200 mg PO DAILY 04/17/21 04/17/21 History Montelukast [Singulair] 10 mg PO DAILY 04/17/21 04/17/21 History Nitroglycerin Sl Tabs [Nitrostat] 0.4 mg SL Q5M PRN 04/17/21 04/17/21 History Allergies Allergy/AdvReac Type Severity Reaction Status Date / Time codeine AdvReac Vision Verified 04/17/21 10:26 Disturbance blood pressure pill AdvReac Stasti Uncoded 04/17/21 10:26 ons Physical Examination - Vital Signs Vital Signs: Vital Signs Temp Pulse Resp BP BP Pulse Ox 04/17/21 05:15 174/95 04/17/21 05:00 97.8 F 89 20 178/104 97 04/17/21 04:20 97.9 F 87 20 157/104 97 04/17/21 04:05 98.0 F 88 20 174/91 97 04/17/21 03:20 97.9 F 90 20 155/74 98 04/17/21 01:43 88 04/17/21 01:35 92 04/17/21 00:57 98 F 121 H 24 154/131 90 L Intake and Output 04/16/21 04/17/21 04/17/21 22:59 06:59 14:59 Output Total 0 0 Balance 0 0 Output: Urine 0 0 Other: # Voids 0 0 Weight 79 kg Patient is an elderly female, very pleasant, in no acute distress. Patient is alert awake oriented to time place and person. She knows it is [facility]. She thinks it is April and the year is 2020. Knows name of the current president (with prompting). Speech and language functions are normal. Attention, concentration and fund of knowledge is adequate. Patient can name and repeat very well. On cranial examination, pupils are round and reacting to light, right pupil minimally bigger than the left. She had cataract surgery in both eyes. Her visual cota reveal complete homonymous hemianopia on the left side. This is new. Her extraocular muscles are intact with no nystagmus. Face is symmetric, tongue protrudes to the midline. Palatal elevation and sensation normal, h earing and shoulder shrug normal, facial sensation normal. On muscle strength testing, there is no left arm drifts out while checking for pronator drift. Her muscle strength is normal in arms and legs distally and proximally. Please refer to the sensory section also. Deep tendon reflexes are 1+ all over and plantars withdrawal. Sensory to touch is decreased in the left upper and left lower extremity as compared to the right. This unequal sensation is more pronounced in the upper extremies as compared to the lowers. She has almost no sensation in the left upper extremity. She has severe cortical sensory loss in the left upper extremity, as she was gripping the left hand, not even noticing that she is gripping, states "I'm not gripping anything". When she is putting glasses on, she could not use her left hand to put the arm on the glasses over the left ear with her left hand. She has neglect on the left side as well. Patient was not able to show equal strength for biceps when checking both upper extremities, but when individually checked, she did normal performance in the left upper extremity for muscle strength. Cerebellar function showed severe ataxia for [id number]-[id number] testing on the left, mild ataxia on the right upper extremity. She has mild ataxia for heel-to-oscar n, left more than right. Tone and bulk of muscles normal. Gait not checked because of imbalance. On general examination, there is no carotid bruit or murmur, S1-S2 audible. Abdomen is soft nontender. Chest is clear. Peripheral pulses are present. No edema. Results - Laboratory Findings CBC and BMP: 04/17/21 01:07 04/17/21 01:07 Abnormal Lab Findings: Abnormal Labs 04/17/21 04/17/21 04/17/21 01:07 01:07 01:07 WBC 14.9 H Neutrophils # 12.9 H APTT 21.6 L BUN Creatinine Glucose POC Glucose (mg/dL) Plasma Lactic Acid Buck Calcium AST ALT Albumin Urine Protein 1+ H 04/17/21 04/17/21 04/17/21 01:07 01:07 01:22 WBC Neutrophils # APTT BUN 29 H Creatinine 1.10 H Glucose 233 H POC Glucose (mg/dL) 271 H Plasma Lactic Acid Buck 3.4 H* Calcium 10.4 H AST 57 H ALT 47 H Albumin 5.1 H Urine Protein 04/17/21 04/17/21 04/17/21 04:22 06:25 07:42 WBC Neutrophils # APTT BUN Creatinine Glucose POC Glucose (mg/dL) 144 H Plasma Lactic Acid Buck 2.4 H* 2.2 H* Calcium AST ALT Albumin Urine Protein Assessment and Plan Assessment: * 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 Probably cardioembolic. Patient already has been on Eliquis and Plavix, compliant with medication, prior to having this stroke. * Atrial fibrillation * Hypertension * Elevated glucose, rule out diabetes Plan: * Agree with MRI of the brain. * If no evidence of hemorrhage, would recommend starting Eliquis as soon as possible. * CTA of head and neck showed no significant stenosis. * 2-D echo * Hemoglobin A1c, lipid panel. * Continue telemetry monitoring. * Await cardiology consultation. * Discussed with patient's family in detail as well. * We will follow.
[2021-04-17 12:10] LABS: Glucose,Whole Blood 129 mg/dL (75-99)
--- NOTE | 2021-04-17 13:44 | ECHOF ---
Referral Reason:Heart Failure MEASUREMENTS -------- HEIGHT: 165.1 cm WEIGHT: 83.0 kg BP: 178/104 RVIDd: 3.0 cm (< 3.3) IVSd: 1.3 cm (0.6 - 1.1) LVIDd: 3.2 cm (3.9 - 5.3) LVPWd: 1.2 cm (0.6 - 1.1) IVSs: 1.7 cm LVIDs: 2.5 cm LVPWs: 1.8 cm LA Diam: 3.9 cm (2.7 - 3.8) LAESV Index (A-L): 29.70 ml/m Ao Diam: 2.8 cm (2.0 - 3.7) AV Cusp: 1.9 cm (1.5 - 2.6) MV EXCURSION: 18.221 mm (> 18.000) MV EF SLOPE: 58 mm/s (70 - 150) EPSS: 0.6 cm RAP: 5.00 mmHg RVSP: 60.97 mmHg FINDINGS -------- Atrial fibrillation. This was a technically adequate study. The left ventricular size is normal. There is borderline concentric left ventricular hypertrophy. Overall left ventricular systolic function is mild-moderately impaired with, an EF between 40 - 45 % . The right ventricle is normal in size. LA is midly dilated 29-33ml/m2. The right atrium is normal in size. Interatrial and interventricular septum intact. There is mild aortic valve sclerosis. The mitral valve leaflets are mildly thickened. Mild tricuspid regurgitation present. There is severe pulmonary hypertension. The right ventricul ar systolic pressure, as measured by Doppler, is 60.97mmHg. Trace/mild (physiologic) pulmonic regurgitation. The aortic root size is normal. Normal inferior vena cava with normal inspiratory collapse consistent with estimated right atrial pre ssure of 5 mmHg. There is no pericardial effusion. CONCLUSIONS -------- 1. The left ventricular size is normal. 2. There is borderline concentric left ventricular hypertrophy. 3. Overall left ventricular systolic function is mild-moderately impaired with, an EF between 40 - 45 %. 4. LA is midly dilated 29-33ml/m2. 5. There is mild aortic valve sclerosis. 6. The mitral valve leaflets are mildly thickened. 7. Mild tricuspid regurgitation present. 8. There is severe pulmonary hypertension. 9. The right ventricular systolic pressure, as measured by Doppler, is 60.97mmHg. 10. Trace/mild (physiologic) pulmonic regurgitation. 11. There is no pericardial effusion. TELEPATHIST: Isamar Treviño RDCS
[2021-04-17 14:20] VITALS: BMI 29.0
[2021-04-17 14:29] LABS: Hemoglobin A1C 6.6 % (4.0-6.0)
[2021-04-17] MEDS: SODIUM CHLORIDE 0.9% 1,000 ML IV SCH ×2 (14:46→20:41)
--- NOTE | 2021-04-17 14:51 | P.GSHP ---
History of Present Illness H&P Date: 04/17/21 81-year-old female presented to the emergency department as a priority to trauma. She was apparently found on the ground in her apartment and after yelling for help. She states that she felt dizzy and then does not remember much after that. Patient was noted to be hypertensive and tachycardic on arrival in to the emergency department. Per emergency department physician, he did state that she did have some altered mental status. Overall, workup was unremarkable for any acute traumatic injury. However, it was clear that the patient was exhibiting left-sided neglect. She was evaluated by the in-house hospitalist and code stroke was activated. The case was discussed with neurology at that time. She is also noted to take 2 forms of anticoagulation with Plavix and Eliquis. Recommendation was made for brain MRI and neurology evaluation. Currently, patient is hemodynamically stable. She is answering questions appropriately. She does have drifting of the left arm, however does have appropriate motor strength. She denies any pain. No additional complaints at this time. Past Medical History Past Medical History: Atrial Fibrillation, Chest Pain / Angina, COPD, CVA/TIA, Fibromyalgia, GERD/Reflux, Hypertension, Pneumonia Additional Past Medical History / Comment(s): "mild stroke and heart problem Aug 2020", COVID Aug 2020 "tested in [place]" History of Any Multi-Drug Resistant Organisms: None Reported Past Surgical History: Bladder Surgery, Hysterectomy, Joint Replacement Additional Past Surgical History / Comment(s): bladder suspension, partial parathyroidectomy, jama shoulder replacement, jaam cataracts Past Anesthesia/Blood Transfusion Reactions: No Reported Reaction Smoking Status: Never smoker - Past Family History Mother Family Medical History: No Reported History Father Family Medical History: No Reported History Medications and Allergies Home Medications Medication Instructions Recorded Confirmed Type Apixaban [Eliquis] 5 mg PO BID #60 tab 09/24/20 04/17/21 Rx rOPINIRole HCL [Requip] 0.25 mg PO HS #30 tab 10/04/20 04/17/21 Rx Spironolactone [Aldactone] 25 mg PO DAILY 11/18/20 04/17/21 History Atorvastatin [Lipitor] 40 mg PO DAILY #90 tab 11/25/20 04/17/21 Rx Clopidogrel [Plavix] 75 mg PO DAILY #90 tab 11/25/20 04/17/21 Rx Albuterol Inhaler [Ventolin Hfa 2 puff INHALATION RT-Q4H PRN 04/17/21 04/17/21 History Inhaler] Escitalopram [Lexapro] 10 mg PO DAILY 04/17/21 04/17/21 History Famotidine 40 mg PO DAILY 04/17/21 04/17/21 History Isosorbide Mononitrate ER [Imdur] 30 mg PO DAILY 04/17/21 04/17/21 History Losartan/Hydrochlorothiazide 1 tab PO DAILY 04/17/21 04/17/21 History [Hyzaar 100-25 Tablet] Metoprolol Succinate [Toprol XL] 200 mg PO DAILY 04/17/21 04/17/21 History Montelukast [Singulair] 10 mg PO DAILY 04/17/21 04/17/21 History Nitroglycerin Sl Tabs [Nitrostat] 0.4 mg SL Q5M PRN 04/17/21 04/17/21 History Allergies Allergy/AdvReac Type Severity Reaction Status Date / Time codeine AdvReac Vision Verified 04/17/21 10:26 Disturbance blood pressure pill AdvReac Hallucinati Uncoded 04/17/21 10:26 ons Surgical - Exam Osteopathic Statement: *. No significant issues noted on an osteopathic structural exam other than those noted in the History and Physical/Consult. Vital Signs Temp Pulse Resp BP Pulse Ox 98 F 121 H 24 154/131 90 L 04/17/21 00:57 04/17/21 00:57 04/17/21 00:57 04/17/21 00:57 04/17/21 00:57 - General well nourished, no distress - Eyes PERRL, normal ocular movement - ENT normal pinna, normal nares, normal mucosa, no hearing loss - Neck trachea midline - Respiratory normal respiratory effort - Abdomen Soft, nontender, nondistended, no rebound, no guarding - Neurologic Appropriate bilateral motor strength, left arm drifting on exam, significant sensory defect in the left upper extremity compared to right upper extremity - Psychiatric oriented to time, oriented to person, oriented to place Results - Labs 04/17/21 01:07 04/17/21 01:07 Abnormal Lab Results - Last 24 Hours (Table) 04/17/21 04/17/21 04/17/21 Range/Units 01:07 01:07 01:07 WBC 14.9 H (3.8-10.6) k/uL Neutrophils # 12.9 H (1.3-7.7) k/uL APTT 21.6 L (22.0-30.0) sec BUN (7-17) mg/dL Creatinine (0.52-1.04) mg/dL Glucose (74-99) mg/dL POC Glucose (mg/dL) (75-99) mg/dL Hemoglobin A1c (4.0-6.0) % Plasma Lactic Acid Buck (0.7-2.0) mmol/L Calcium (8.4-10.2) mg/dL AST (14-36) U/L ALT (4-34) U/L Albumin (3.5-5.0) g/dL Urine Protein 1+ H (Negative) 04/17/21 04/17/21 04/17/21 Range/Units 01:07 01:07 01:22 WBC (3.8-10.6) k/uL Neutrophils # (1.3-7.7) k/uL APTT (22.0-30.0) sec BUN 29 H (7-17) mg/dL Creatinine 1.10 H (0.52-1.04) mg/dL Glucose 233 H (74-99) mg/dL POC Glucose (mg/dL) 271 H (75-99) mg/dL Hemoglobin A1c (4.0-6.0) % Plasma Lactic Acid Bukc 3.4 H* (0.7-2.0) mmol/L Calcium 10.4 H (8.4-10.2) mg/dL AST 57 H (14-36) U/L ALT 47 H (4-34) U/L Albumin 5.1 H (3.5-5.0) g/dL Urine Protein (Negative) 04/17/21 04/17/21 04/17/21 Range/Units 04:22 06:25 07:42 WBC (3.8-10.6) k/uL Neutrophils # (1.3-7.7) k/uL APTT (22.0-30.0) sec BUN (7-17) mg/dL Creatinine (0.52-1.04) mg/dL Glucose (74-99) mg/dL POC Glucose (mg/dL) 144 H (75-99) mg/dL Hemoglobin A1c 6.6 H (4.0-6.0) % Plasma Lactic Acid Buck 2.4 H* (0.7-2.0) mmol/L Calcium (8.4-10.2) mg/dL AST (14-36) U/L ALT (4-34) U/L Albumin (3.5-5.0) g/dL Urine Protein (Negative) 04/17/21 04/17/21 04/17/21 Range/Units 07:42 10:59 12:08 WBC (3.8-10.6) k/uL Neutrophils # (1.3-7.7) k/uL APTT (22.0-30.0) sec BUN (7-17) mg/dL Creatinine (0.52-1.04) mg/dL Glucose (74-99) mg/dL POC Glucose (mg/dL) 129 H (75-99) mg/dL Hemoglobin A1c (4.0-6.0) % Plasma Lactic Acid Buck 2.2 H* 2.1 H* (0.7-2.0) mmol/L Calcium (8.4-10.2) mg/dL AST (14-36) U/L ALT (4-34) U/L Albumin (3.5-5.0) g/dL Urine Protein (Negative) Diabetes panel 04/17/21 04/17/21 Range/Units 01:07 07:42 Sodium 141 (137-145) mmol/L Potassium 4.6 (3.5-5.1) mmol/L Chloride 103 (98-107) mmol/L Carbon Dioxide 23 (22-30) mmol/L BUN 29 H (7-17) mg/dL Creatinine 1.10 H (0.52-1.04) mg/dL Glucose 233 H (74-99) mg/dL Hemoglobin A1c 6.6 H (4.0-6.0) % Calcium 10.4 H (8.4-10.2) mg/dL AST 57 H (14-36) U/L ALT 47 H (4-34) U/L Alkaline Phosphatase 81 (38-126) U/L Total Protein 8.2 (6.3-8.2) g/dL Albumin 5.1 H (3.5-5.0) g/dL Calcium panel 04/17/21 Range/Units 01:07 Calcium 10.4 H (8.4-10.2) mg/dL Albumin 5.1 H (3.5-5.0) g/dL Pituitary panel 04/17/21 Range/Units 01:07 Sodium 141 (137-145) mmol/L Potassium 4.6 (3.5-5.1) mmol/L Chloride 103 (98-107) mmol/L Carbon Dioxide 23 (22-30) mmol/L BUN 29 H (7-17) mg/dL Creatinine 1.10 H (0.52-1.04) mg/dL Glucose 233 H (74-99) mg/dL Calcium 10.4 H (8.4-10.2) mg/dL Adrenal panel 04/17/21 Range/Units 01:07 Sodium 141 (137-145) mmol/L Potassium 4.6 (3.5-5.1) mmol/L Chloride 103 (98-107) mmol/L Carbon Dioxide 23 (22-30) mmol/L BUN 29 H (7-17) mg/dL Creatinine 1.10 H (0.52-1.04) mg/dL Glucose 233 H (74-99) mg/dL Calcium 10.4 H (8.4-10.2) mg/dL Total Bilirubin 0.6 (0.2-1.3) mg/dL AST 57 H (14-36) U/L ALT 47 H (4-34) U/L Alkaline Phosphatase 81 (38-126) U/L Total Protein 8.2 (6.3-8.2) g/dL Albumin 5.1 H (3.5-5.0) g/dL Assessment and Plan Plan: 81-year-old female that presented as a priority 2 trauma for possible fall on anticoagulation. After workup, it is clear that the patient likely has suffered an Acute ischemic stroke. She does appear to have left homonymous hemianopia, left yenni-sensory loss and left hemiataxia, confirmed by neurology. There is no evidence of acute traumatic injury. Patient is requiring medical and neurology workup and treatment. Patient is admitted to the trauma surgical service secondary to trauma department policy for admissions, although my recommendation was admission to medicine service with neurology evaluation due to the clear neurologic defects found in this patient with concern for acute ischemic stroke and no evidence of traumatic injury. Care is to be transferred to the medical team for further management with neurology recommendations pending. Currently brain MRI is pending. We will continue to follow and provide secondary survey.
--- NOTE | 2021-04-17 14:53 | MR ---
EXAMINATION TYPE: MR brain wo/w con DATE OF EXAM: 04/17/2021 COMPARISON: HISTORY: Acute CVA, Unctrolled lt arm movement CONTRAST: Standard multiplanar, multisequence MRI departmental protocol utilizing 7.5 mL intravenous Gadavist g adolinium contrast. There is increased signal on the T2 and FLAIR images in the right temporal lobe related to old infarc t. Diffusion images show no evidence of an acute infarct. There is enlargement of the right sylvian f issure. There is right temporal lobe atrophy. There is no mass effect nor midline shift. There is no sign of intracranial hemorrhage. There is thinning of the corpus callosum. Contrast images show no pa thologic enhancement. Cerebellum is intact. There are patchy areas of increased signal in the periven tricular white matter that measure up to 1 cm. Total number of foci is approximately 20. There is 3 m m focus of increased signal in the left side of the mónica on the FLAIR images. The cerebellum is intac t. Sella turcica appears normal. There is no evidence of orbital mass. IMPRESSION: Old right temporal lobe infarct. Chronic small vessel ischemia. Demyelinating disease not excluded. C erebral atrophy. No acute intracranial abnormality.
--- NOTE | 2021-04-17 15:38 | P.CRDCN ---
History of Present Illness History of present illness: HISTORY OF PRESENTING ILLNESS Patient is a pleasant 80-year-old female with history of atrial fibrillation, hypertension, prior stroke, chronic systolic heart failure, coronary artery disease status post PCI in November [address] Matias. Patient presented secondary to a fall. She states she had not eaten much that day and often if she does not eat enough she'll get lightheaded. She states she was walking and then suddenly started feeling more lightheaded and then fell. She denies any actual syncope. She admits she does not remember too much of the episode however does not believe she lost consciousness. She was evaluated in emergency department and noted to have left-sided neglect and therefore code stroke was called. Workup was performed including an MRI performed today however does not show any acute process and only old stroke. She states now today she feels back to normal. Cardiology was consult is for atrial fibrillation. Her atrial fibrillation has been well controlled. EKG on arrival shows what appears to be sinus rhythm with regular rate and baseline artifact. She does have history of prior episodes of feeling lightheaded however states us es occurs when she does not eat enough. No history of syncope. She believes she has worn monitors in the past. Echocardiogram performed today shows ejection fraction 40-45% with global hypokinesis, mildly dilated left atrium, mild tricuspid regurgitation, RVSP 60. Prior echo from September 2020 showed ejection fraction 35-40%. She currently states she feels back to her normal self. Denies any shortness breath. No chest pain or pressure. There was concern about failed anticoagulation which she has been taking religiously however if no acute stroke would not make any changes. REVIEW OF SYSTEMS At the time of my exam: CONSTITUTIONAL: Denies fever or chills. CARDIOVASCULAR: Denies chest pain, shortness of breath, orthopnea, PND or palpitations. +lightheadedness RESPIRATORY: Denies cough. GASTROINTESTINAL: Denies abdominal pain, diarrhea, constipation, nausea or vomiting. MUSCULOSKELETAL: Denies myalgias. NEUROLOGIC: Denies numbness, tingling or weakness. ENDOCRINE: Denies fatigue, weight change, polydipsia or polyurina. GENITOURINARY: Denies burning, hematuria or urgency with micturation. HEMATOLOGIC: Denies history of anemia or bleeding. PHYSICAL EXAMINATION Vital signs reviewed. CONSTITUTIONAL: No apparent distress. +left hemineglect HEENT: Head is normocephalic. Pupils are equal, round. Sclerae anicteric. Mucous membranes of the mouth are moist. No JVD. No carotid bruit. CHEST EXAMINATION: Lungs are clear to auscultation. No chest wall tenderness is noted on palpation or with deep breathing. HEART EXAMINATION: Regular rate and rhythm. S1, S2 heard. No murmurs, gallops or rub. ABDOMEN: Soft, nontender. Positive bowel sounds. EXTREMITIES: 2+ peripheral pulses, no lower extremity edema and no calf tenderness. NEUROLOGIC EXAMINATION: Patient is awake, alert and oriented x3. ASSESSMENT 1. Paroxysmal atrial fibrillation on Eliquis 2. Chronic systolic heart failure 3. Prior cardiomyopathy with ejection fraction 35-40%, mildly improved to 40- 45% on echo 04/17/2021 4. Fall likely exacerbated by not eating and hypoglycemia, no evidence of tachycardia or bradycardia 5. Coronary artery disease status post PCI November 2020 6. 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 MRI showing no acute process 7. Essential hypertension PLAN Patient appears close to back to her normal self. Suspect always exacerbated by not eating and possible hypoglycemic episode. Echo with improved ejection fraction 40-45%. If patient continues to have episodes may consider event monitor or loop recorder although she states there is a correlation of her not eating. Unless patient has a clear new stroke while on Eliquis I would not make any changes of anticoagulation as this does not appear to be a failure of Eliquis, MRI not showing any acute findings. Stable for discharge home from a cardiac standpoint. No further recommendations. Please call with any questions. Past Medical History Past Medical History: Atrial Fibrillation, Chest Pain / Angina, COPD, CVA/TIA, Fibromyalgia, GERD/Reflux, Hypertension, Pneumonia Additional Past Medical History / Comment(s): "mild stroke and heart problem Aug 2020", COVID Aug 2020 "tested in [place]" History of Any Multi-Drug Resistant Organisms: None Reported Past Surgical History: Bladder Surgery, Hysterectomy, Joint Replacement Additional Past Surgical History / Comment(s): bladder suspension, partial parathyroidectomy, jama shoulder replacement, jama cataracts Past Anesthesia/Blood Transfusion Reactions: No Reported Reaction Smoking Status: Never smoker - Past Family History Mother Family Medical History: No Reported History Father Family Medical History: No Reported History Medications and Allergies Home Medications Medication Instructions Recorded Confirmed Type Apixaban [Eliquis] 5 mg PO BID #60 tab 09/24/20 04/17/21 Rx rOPINIRole HCL [Requip] 0.25 mg PO HS #30 tab 10/04/20 04/17/21 Rx Spironolactone [Aldactone] 25 mg PO DAILY 11/18/20 04/17/21 History Atorvastatin [Lipitor] 40 mg PO DAILY #90 tab 11/25/20 04/17/21 Rx Clopidogrel [Plavix] 75 mg PO DAILY #90 tab 11/25/20 04/17/21 Rx Albuterol Inhaler [Ventolin Hfa 2 puff INHALATION RT-Q4H PRN 04/17/21 04/17/21 History Inhaler] Escitalopram [Lexapro] 10 mg PO DAILY 04/17/21 04/17/21 History Famotidine 40 mg PO DAILY 04/17/21 04/17/21 History Isosorbide Mononitrate ER [Imdur] 30 mg PO DAILY 04/17/21 04/17/21 History Losartan/Hydrochlorothiazide 1 tab PO DAILY 04/17/21 04/17/21 History [Hyzaar 100-25 Tablet] Metoprolol Succinate [Toprol XL] 200 mg PO DAILY 04/17/21 04/17/21 History Montelukast [Singulair] 10 mg PO DAILY 04/17/21 04/17/21 History Nitroglycerin Sl Tabs [Nitrostat] 0.4 mg SL Q5M PRN 04/17/21 04/17/21 History Allergies Allergy/AdvReac Type Severity Reaction Status Date / Time codeine AdvReac Vision Verified 04/17/21 10:26 Disturbance blood pressure pill AdvReac Hallucinati Uncoded 04/17/21 10:26 ons Physical Exam Vitals: Vital Signs Temp Pulse Resp BP BP Pulse Ox 04/17/21 05:15 174/95 04/17/21 05:00 97.8 F 89 20 178/104 97 04/17/21 04:20 97.9 F 87 20 157/104 97 04/17/21 04:05 98.0 F 88 20 174/91 97 04/17/21 03:20 97.9 F 90 20 155/74 98 04/17/21 01:43 88 04/17/21 01:35 92 04/17/21 00:57 98 F 121 H 24 154/131 90 L Intake and Output 04/17/21 04/17/21 04/17/21 06:59 14:59 22:59 Intake Total 240 Output Total 0 0 Balance 0 240 Intake: Oral 240 Output: Urine 0 0 Other: # Voids 0 0 Weight 79 kg 79 kg Results 04/17/21 01:07 04/17/21 01:07 Cardiac Enzymes 04/17/21 04/17/21 04/17/21 Range/Units 01:07 01:07 04:22 AST 57 H (14-36) U/L Troponin I 0.014 0.021 (0.000-0.034) ng/mL 04/17/21 Range/Units 07:42 AST (14-36) U/L Troponin I 0.033 (0.000-0.034) ng/mL Coagulation 04/17/21 Range/Units 01:07 PT 11.3 (9.0-12.0) sec APTT 21.6 L (22.0-30.0) sec CBC 04/17/21 Range/Units 01:07 WBC 14.9 H (3.8-10.6) k/uL RBC 4.48 (3.80-5.40) m/uL Hgb 15.1 (11.4-16.0) gm/dL Hct 44.6 (34.0-46.0) % Plt Count 249 (150-450) k/uL Comprehensive Metabolic Panel 04/17/21 Range/Units 01:07 Sodium 141 (137-145) mmol/L Potassium 4.6 (3.5-5.1) mmol/L Chloride 103 (98-107) mmol/L Carbon Dioxide 23 (22-30) mmol/L BUN 29 H (7-17) mg/dL Creatinine 1.10 H (0.52-1.04) mg/dL Glucose 233 H (74-99) mg/dL Calcium 10.4 H (8.4-10.2) mg/dL AST 57 H (14-36) U/L ALT 47 H (4-34) U/L Alkaline Phosphatase 81 (38-126) U/L Total Protein 8.2 (6.3-8.2) g/dL Albumin 5.1 H (3.5-5.0) g/dL Current Medications Generic Name Dose Route Start Last Admin Trade Name Freq PRN Reason Stop Dose Admin Albuterol Sulfate 2.5 mg 04/17/21 10:39 Albuterol Nebulized 2.5 Mg/3 Ml INHALATION RT-Q4H PRN Shortness Of Breath Atorvastatin Calcium 40 mg 04/18/21 09:00 Atorvastatin 40 Mg Tab PO DAILY ON LICENSE OF [facility] Clopidogrel Bisulfate 75 mg 04/17/21 09:00 04/17/21 09:40 Clopidogrel 75 Mg Tab PO 75 mg DAILY ON LICENSE OF [facility] Administration Clopidogrel Bisulfate 75 mg 04/18/21 09:00 Clopidogrel 75 Mg Tab PO DAILY ON LICENSE OF [facility] Escitalopram Oxalate 10 mg 04/18/21 09:00 Escitalopram 10 Mg Tab PO DAILY ON LICENSE OF [facility] Famotidine 40 mg 04/18/21 09:00 Famotidine 20 Mg Tab PO DAILY ON LICENSE OF [facility] Furosemide 40 mg 04/17/21 03:00 04/17/21 03:37 Furosemide 10 Mg/Ml 4 Ml Vial IV Not Given Q12H YUAN HCTZ/Losartan Potassium 2 each 04/18/21 09:00 Losartan-Hctz 50-12.5 Mg 1 Each Tab PO DAILY ON LICENSE OF [facility] Hydromorphone HCl 1 mg 04/17/21 02:48 Hydromorphone 1 Mg/Ml 1 Ml Syringe IVP Q3HR PRN Severe Pain Diltiazem HCl 125 mg/ Sodium 125 mls @ 5 mls/hr 04/17/21 01:15 04/17/21 01:52 Chloride IV Not Given .Q24H YUAN 5 MG/HR Sodium Chloride 1,000 mls @ 75 mls/hr 04/17/21 04:30 04/17/21 14:46 Saline 0.9% IV Not Given .[id number] ON LICENSE OF [facility] Insulin Aspart 0 unit 04/17/21 07:30 04/17/21 14:31 Insulin Aspart (Novolog) 100 Unit/Ml Vial SQ Not Given ACHS ON LICENSE OF [facility] Protocol Isosorbide Mononitrate 30 mg 04/18/21 09:00 Isosorbide Mononitrate Er 30 Mg Tab.Er.24h PO DAILY ON LICENSE OF [facility] Lorazepam 0.5 mg 04/17/21 02:48 Lorazepam 2 Mg/Ml Inj IV Q6HR PRN Anxiety Metoprolol Succinate 200 mg 04/18/21 09:00 Metoprolol Succinate (Er) 100 Mg Tab.Er.24h PO DAILY ON LICENSE OF [facility] Montelukast Sodium 10 mg 04/18/21 09:00 Montelukast 10 Mg Tab PO DAILY YUAN Naloxone HCl 0.2 mg 04/17/21 02:48 Naloxone 0.4 Mg/Ml 1 Ml Vial IV Q2M PRN Opioid Reversal Ondansetron HCl 4 mg 04/17/21 02:48 Ondansetron 4 Mg/2 Ml Vial IVP Q8HR PRN Nausea And Vomiting Pantoprazole Sodium 40 mg 04/17/21 09:00 04/17/21 09:40 Pantoprazole 40 Mg/10 Ml Vial IV 40 mg DAILY YUAN Administration Ropinirole HCl 0.25 mg 04/17/21 21:00 Ropinirole Hcl 0.25 Mg Tab PO HS YUAN Spironolactone 25 mg 04/18/21 09:00 Spironolactone 25 Mg Tab PO DAILY YUAN Intake and Output 04/17/21 04/17/21 04/17/21 06:59 14:59 22:59 Intake Total 240 Output Total 0 0 Balance 0 240 Intake: Oral 240 Output: Urine 0 0 Other: # Voids 0 0 Weight 79 kg 79 kg Patient Weight 04/18/21 06:59 Weight 79 kg 04/17/21 01:07 04/17/21 01:07
[2021-04-17 17:05] LABS: Glucose,Whole Blood 110 mg/dL (75-99)
[2021-04-17 20:15] LABS: Glucose,Whole Blood 127 mg/dL (75-99)
[2021-04-17] MEDS: LORazepam 2 MG/ML INJ IV PRN (23:21)
[2021-04-18] MEDS: FUROSEMIDE 10 MG/ML 4 ML VIAL IV SCH ×2 (03:29→16:09)
[2021-04-18] MEDS: SODIUM CHLORIDE 0.9% 1,000 ML IV SCH (05:46)
[2021-04-18 06:06] LABS: Glucose,Whole Blood 130 mg/dL (75-99)
[2021-04-18] MEDS: INSULIN ASPART (NovoLOG) 100 UNIT/ML VIAL SQ SCH ×4 (07:10→20:20)
[2021-04-18] MEDS: PANTOPRAZOLE 40 MG TABLET PO SCH (07:10)
--- NOTE | 2021-04-18 07:12 | XR ---
EXAMINATION TYPE: XR chest 1V DATE OF EXAM: 04/18/2021 COMPARISON: 04/17/2021 HISTORY: Shortness TECHNIQUE: Single frontal view of the chest is obtained. FINDINGS: Postsurgical change involving the shoulders. Heart size normal. Hypertrophic and degenerat elier changes spine. No overt failure. No pleural effusion or pneumothorax. No consolidation. IMPRESSION: Interval marked improvement in appearance chest with near complete resolution of diffuse interstitial pattern. Underlying COPD persists.
[2021-04-18 08:00] LABS: Basophils # (A) 0.1 k/uL (0-0.2); Basophils % (A) 1 %; Eosinophils # (A) 0.2 k/uL (0-0.7); Eosinophils % (A) 2 %; HCT 36.2 % (34.0-46.0); HGB 12.5 gm/dL (11.4-16.0); Lymphocytes # (A) 1.4 k/uL (1.0-4.8); Lymphocytes % (A) 13 %; MCH 33.4 pg (25.0-35.0); MCHC 34.6 g/dL (31.0-37.0); MCV 96.7 fL (80.0-100.0); Mean Platelet Volume 9.1; Monocytes # (A) 0.7 k/uL (0-1.0); Monocytes % (A) 6 %; Neutrophils # (A) 7.9 k/uL (1.3-7.7); Neutrophils % (A) 76 %; Platelet Count 172 k/uL (150-450); RBC 3.75 m/uL (3.80-5.40); WBC 10.4 k/uL (3.8-10.6)
[2021-04-18 08:15] LABS: Albumin 4.3 g/dL (3.5-5.0); Calcium 9.6 mg/dL (8.4-10.2); Magnesium 1.3 mg/dL (1.6-2.3); Phosphorus 3.4 mg/dL (2.5-4.5); Potassium 2.9 mmol/L (3.5-5.1); Total Bilirubin 1.7 mg/dL (0.2-1.3); Total Protein 7.1 g/dL (6.3-8.2)
[2021-04-18] MEDS ORDERED: Potassium Replacement Protocol 1 EACH MISC MISCELLANE PRN (08:58)
[2021-04-18] MEDS ORDERED: Magnesium Replacement Protocol 1 EACH MISC MISCELLANE PRN (08:58)
[2021-04-18] MEDS ORDERED: CLOPIDOGREL 75 MG TAB PO SCH (09:00)
[2021-04-18] MEDS: MAGNESIUM SULFATE-D5W PMX 1 GM in DEXTROSE/WATER 1 100ML.BAG IVPB SCH ×3 (09:26→12:04)
[2021-04-18] MEDS: LOSARTAN-HCTZ 50-12.5 MG 1 EACH TAB PO SCH (09:29)
[2021-04-18] MEDS: SPIRONOLACTONE 25 MG TAB PO SCH (09:29)
[2021-04-18] MEDS: ISOSORBIDE MONONITRATE ER 30 MG TAB.ER.24H PO SCH (09:29)
[2021-04-18] MEDS: ATORVASTATIN 40 MG TAB PO SCH (09:29)
[2021-04-18] MEDS: APIXABAN 5 MG TAB PO SCH ×2 (09:30→20:20)
[2021-04-18] MEDS: POTASSIUM CHLORIDE ER 20 MEQ TAB.ER PO SCH ×3 (09:30→12:05)
[2021-04-18] MEDS: FAMOTIDINE 20 MG TAB PO SCH (09:30)
[2021-04-18] MEDS: MONTELUKAST 10 MG TAB PO SCH (09:30)
[2021-04-18] MEDS: METOPROLOL SUCCINATE (ER) 100 MG TAB.ER.24H PO SCH (09:30)
[2021-04-18] MEDS: CLOPIDOGREL 75 MG TAB PO SCH (09:30)
[2021-04-18] MEDS: ESCITALOPRAM 10 MG TAB PO SCH (09:30)
[2021-04-18 11:36] LABS: Chol/HDL Ratio 3.43; LDL Cholesterol,Calculated 64.8 mg/dL (0.0-131.0); VLDL Calculation 20.2 mg/dL (5.00-40.00)
[2021-04-18 12:01] LABS: Glucose,Whole Blood 185 mg/dL (75-99)
--- NOTE | 2021-04-18 13:22 | P.PN ---
Subjective Progress Note Date: 04/18/21 Patient seen and examined at bedside. Family is also at bedside with the patient. She is in good spirits. Denies any new onset of pain. Complains of some headache that has resolved. Objective - Vital Signs Vital signs: Vital Signs Temp 99.1 F 04/18/21 08:41 Pulse 89 04/18/21 11:10 Resp 16 04/18/21 11:10 BP 136/72 04/18/21 11:10 Pulse Ox 93 L 04/18/21 11:10 Intake & Output 04/17/21 04/18/21 04/18/21 18:59 06:59 18:59 Intake Total 480 240 Output Total 300 1210 Balance 180 -1210 240 Weight 79 kg 79.5 kg Intake: Oral 480 240 Output: Urine 300 1210 Other: Voiding Method Bedside Commode Bedside Commode Bedside Commode Diaper Diaper Diaper Incontinent Incontinent Incontinent # Voids 0 2 - Constitutional General appearance: Present: cooperative, no acute distress - EENT Eyes: Present: EOMI, PERRLA ENT: Present: hearing grossly normal - Neck Details: No palpable lymphadenopathy or masses, no ecchymosis - Respiratory Details: No difficulty with respiration, no ecchymosis on chest wall - Gastrointestinal Gastrointestinal Comment(s): Soft, nontender, nondistended, no rebound, no guarding, no signs of ecchymosis - Integumentary Integumentary Comment(s): No obvious ecchymosis in bilateral upper or lower extremities - Neurologic Neurologic Comment(s): Continued drifting of left upper extremity with appropriate motor strength - Musculoskeletal Musculoskeletal: Present: generalized weakness - Labs CBC & Chem 7: 04/18/21 07:32 04/18/21 07:32 Labs: Abnormal Lab Results - Last 24 Hours (Table) 04/17/21 04/17/21 04/17/21 Range/Units 07:42 17:03 20:13 RBC (3.80-5.40) m/uL Neutrophils # (1.3-7.7) k/uL Potassium (3.5-5.1) mmol/L Chloride (98-107) mmol/L Carbon Dioxide (22-30) mmol/L BUN (7-17) mg/dL Glucose (74-99) mg/dL POC Glucose (mg/dL) 110 H 127 H (75-99) mg/dL Hemoglobin A1c 6.6 H (4.0-6.0) % Magnesium (1.6-2.3) mg/dL Total Bilirubin (0.2-1.3) mg/dL AST (14-36) U/L HDL Cholesterol (40.0-60.0) mg/dL 04/18/21 04/18/21 04/18/21 Range/Units 06:04 07:32 07:32 RBC 3.75 L (3.80-5.40) m/uL Neutrophils # 7.9 H (1.3-7.7) k/uL Potassium 2.9 L (3.5-5.1) mmol/L Chloride 96 L (98-107) mmol/L Carbon Dioxide 32 H (22-30) mmol/L BUN 22 H (7-17) mg/dL Glucose 116 H (74-99) mg/dL POC Glucose (mg/dL) 130 H (75-99) mg/dL Hemoglobin A1c (4.0-6.0) % Magnesium 1.3 L (1.6-2.3) mg/dL Total Bilirubin 1.7 H (0.2-1.3) mg/dL AST 48 H (14-36) U/L HDL Cholesterol 35.0 L (40.0-60.0) mg/dL 04/18/21 Range/Units 12:00 RBC (3.80-5.40) m/uL Neutrophils # (1.3-7.7) k/uL Potassium (3.5-5.1) mmol/L Chloride (98-107) mmol/L Carbon Dioxide (22-30) mmol/L BUN (7-17) mg/dL Glucose (74-99) mg/dL POC Glucose (mg/dL) 185 H (75-99) mg/dL Hemoglobin A1c (4.0-6.0) % Magnesium (1.6-2.3) mg/dL Total Bilirubin (0.2-1.3) mg/dL AST (14-36) U/L HDL Cholesterol (40.0-60.0) mg/dL Assessment and Plan Plan: Secondary survey performed. No obvious new traumatic findings. Continue with medical and neurology recommendations based on recent CVA.
--- NOTE | 2021-04-18 13:53 | P.PN ---
Subjective Progress Note Date: 04/18/21 No new complaints today. MRI Brain negative for new stroke. Eliquis was resumed. PT/OT pending. Spoke with daughter over the phone, and updated her on results of MRI. Had a dose of ativan last night due to AMS. Objective - Vital Signs Vital signs: Vital Signs Temp 99.1 F 04/18/21 08:41 Pulse 89 04/18/21 11:10 Resp 16 04/18/21 11:10 BP 136/72 04/18/21 11:10 Pulse Ox 93 L 04/18/21 11:10 Intake & Output 04/17/21 04/18/21 04/18/21 18:59 06:59 18:59 Intake Total 480 240 Output Total 300 1210 Balance 180 -1210 240 Weight 79 kg 79.5 kg Intake: Oral 480 240 Output: Urine 300 1210 Other: Voiding Method Bedside Commode Bedside Commode Bedside Commode Diaper Diaper Diaper Incontinent Incontinent Incontinent # Voids 0 2 - Exam Gen: awake, alert HEENT: normocephalic, atraumatic, good hearing acuity, moist mucous membranes Resp: good air exchange, breathing comfortably with no accessory muscle use CVS: good distal perfusion x 4, GI: soft, NTTP, ND : no SPT, no CVAT, river catheter nto present MSK: no pitting edema, no clubbing Neuro: left sided hemianopsia and hemineglect Psych: cooperative, euthymic mood - Labs CBC & Chem 7: 04/18/21 07:32 04/18/21 07:32 Labs: Abnormal Lab Results - Last 24 Hours (Table) 04/17/21 04/17/21 04/17/21 Range/Units 07:42 17:03 20:13 RBC (3.80-5.40) m/uL Neutrophils # (1.3-7.7) k/uL Potassium (3.5-5.1) mmol/L Chloride (98-107) mmol/L Carbon Dioxide (22-30) mmol/L BUN (7-17) mg/dL Glucose (74-99) mg/dL POC Glucose (mg/dL) 110 H 127 H (75-99) mg/dL Hemoglobin A1c 6.6 H (4.0-6.0) % Magnesium (1.6-2.3) mg/dL Total Bilirubin (0.2-1.3) mg/dL AST (14-36) U/L HDL Cholesterol (40.0-60.0) mg/dL 04/18/21 04/18/21 04/18/21 Range/Units 06:04 07:32 07:32 RBC 3.75 L (3.80-5.40) m/uL Neutrophils # 7.9 H (1.3-7.7) k/uL Potassium 2.9 L (3.5-5.1) mmol/L Chloride 96 L (98-107) mmol/L Carbon Dioxide 32 H (22-30) mmol/L BUN 22 H (7-17) mg/dL Glucose 116 H (74-99) mg/dL POC Glucose (mg/dL) 130 H (75-99) mg/dL Hemoglobin A1c (4.0-6.0) % Magnesium 1.3 L (1.6-2.3) mg/dL Total Bilirubin 1.7 H (0.2-1.3) mg/dL AST 48 H (14-36) U/L HDL Cholesterol 35.0 L (40.0-60.0) mg/dL 04/18/21 Range/Units 12:00 RBC (3.80-5.40) m/uL Neutrophils # (1.3-7.7) k/uL Potassium (3.5-5.1) mmol/L Chloride (98-107) mmol/L Carbon Dioxide (22-30) mmol/L BUN (7-17) mg/dL Glucose (74-99) mg/dL POC Glucose (mg/dL) 185 H (75-99) mg/dL Hemoglobin A1c (4.0-6.0) % Magnesium (1.6-2.3) mg/dL Total Bilirubin (0.2-1.3) mg/dL AST (14-36) U/L HDL Cholesterol (40.0-60.0) mg/dL Assessment and Plan Assessment: L hemineglect, suspected acute CVA -Neuro-Diesel Mechanic recs appreciated -C/w Plavix. Resume Eliquis -MRI Brain negative for new acute stroke, demonstrates old strokes. -Neuro-checks -Permissive HTN -C/w Lipitor -PT consult -COATER OPERATOR INSULATION BOARD eval -Echocardigram ordered -Cardiac monitoring -Neuro consult Syncope -Unclear etiology -F/u Echo -Cardiac monitoring -Fall, seizure precautions Acute systolic CHF exacerbation -Continue with Lasix -Cardiac monitoring -Cardiology consulted -intake and output -Daily weights -C/w Bipap for now Lactic acidosis -IV fluids and monitor for resolution Abnormal LFTs -Monitor for now Chronic conditions: Type II DM, hypertension, hyperlipidemia, COPD, A. fib -Continue with home meds -This was associated with blood glucose monitoring -Check A1c -Hold Eliquis -Permissive hypertension DVT prophylaxis -IPCDs
[2021-04-18 16:05] LABS: Potassium 3.8 mmol/L (3.5-5.1)
[2021-04-18 17:04] LABS: Glucose,Whole Blood 117 mg/dL (75-99)
[2021-04-18 20:16] LABS: Glucose,Whole Blood 150 mg/dL (75-99)
[2021-04-18] MEDS: LORazepam 2 MG/ML INJ IV PRN (20:20)
--- NOTE | 2021-04-19 01:25 | P.PN ---
Subjective Progress Note Date: 04/18/21 Patient was seen via Tele-neurology today on 04/18/2021. Patient was seen between 2:33 PM and 2:48 PM. Patient is doing much better. Patient is right-hand dominant. Patient still has ataxia on the left side. Also with some left yenni-dystonia. Per nursing report, patient is very confused off and on. Earlier she was alert and oriented 0 although at this time she is fairly well oriented as mentioned in examination. Patient is laying comfortably in the bed. Objective - Vital Signs Vital signs: Vital Signs Temp 98.2 F 04/18/21 16:00 Pulse 89 04/18/21 20:00 Resp 18 04/18/21 20:00 BP 136/72 04/18/21 20:00 Pulse Ox 94 L 04/18/21 20:00 Intake & Output 04/18/21 04/18/21 04/19/21 06:59 18:59 06:59 Intake Total 880 Output Total 1210 700 Balance -1210 180 Weight 79.5 kg Intake: IV 300 Magnesium Sulfate-D5w Pmx 300 1 gm In Dextrose/Water 1 100ml.bag @ 100 mls/hr IVPB Q1H [facility] Rx#: [id number] Oral 580 Output: Urine 1210 700 Other: Voiding Method Bedside Commode Bedside Commode Bedside Commode Diaper Diaper Diaper Incontinent Incontinent Incontinent # Voids 2 3 1 # Bowel Movements 1 - Exam Patient is an elderly female, very pleasant, in no acute distress. Patient is alert awake oriented to time place and person. Patient knows her name, and it is April, and the year 2020 and that she is in [facility] in [place]. She knows name of the current president. Speech and language functions are normal. Attention, concentration and fund of knowledge is adequate. On cranial examination, pupils are round and reacting to light, extraocular muscles are intact with no nystagmus. Visual cota revealed significant misjudgment in the left visual field for moegih-ss-[id number] testing. Face is symmetric, tongue protrudes to the midline. Palatal elevation and sensation normal, hearing and shoulder shrug normal, facial sensation normal. Shoulder shrug normal. On muscle strength testing, there is mild left pronation especially of the hand with some dystonic movements. Muscle strength is normal in arms and legs di stally and proximally. At times it appears patient's left arm has "mind of its own". Sensory to touch is equal with no neglect. Cerebellar function showed mild to moderate ataxia in the right upper extremity, and mild in the left upper extremity. Tone and bulk of muscles normal. Hxkl-bu-rsaw testing is better on the right, cannot perform on the left. Patient has mild left yenni-dystonia. Gait not checked. On general examination, there is no carotid bruit or murmur, S1-S2 audible. Abdomen is soft nontender. Chest is clear. Peripheral pulses are present. No edema. - Labs CBC & Chem 7: 04/18/21 07:32 04/18/21 15:04 Labs: Abnormal Lab Results - Last 24 Hours (Table) 04/18/21 04/18/21 04/18/21 Range/Units 06:04 07:32 07:32 RBC 3.75 L (3.80-5.40) m/uL Neutrophils # 7.9 H (1.3-7.7) k/uL Potassium 2.9 L (3.5-5.1) mmol/L Chloride 96 L (98-107) mmol/L Carbon Dioxide 32 H (22-30) mmol/L BUN 22 H (7-17) mg/dL Glucose 116 H (74-99) mg/dL POC Glucose (mg/dL) 130 H (75-99) mg/dL Magnesium 1.3 L (1.6-2.3) mg/dL Total Bilirubin 1.7 H (0.2-1.3) mg/dL AST 48 H (14-36) U/L HDL Cholesterol 35.0 L (40.0-60.0) mg/dL 04/18/21 04/18/21 04/18/21 Range/Units 12:00 17:02 20:14 RBC (3.80-5.40) m/uL Neutrophils # (1.3-7.7) k/uL Potassium (3.5-5.1) mmol/L Chloride (98-107) mmol/L Carbon Dioxide (22-30) mmol/L BUN (7-17) mg/dL Glucose (74-99) mg/dL POC Glucose (mg/dL) 185 H 117 H 150 H (75-99) mg/dL Magnesium (1.6-2.3) mg/dL Total Bilirubin (0.2-1.3) mg/dL AST (14-36) U/L HDL Cholesterol (40.0-60.0) mg/dL Assessment and Plan Assessment: * Acute onset of left homonymous hemianopia, left yenni-sensory loss and left hemiataxia/mild dystonia. MRI of the brain revealed no evidence of acute ischemic stroke or bleed. * Atrial fibrillation, currently on Eliquis and Plavix, compliant with medicati on. * Hypertension * Elevated glucose, mild diabetes with A1c 6.6. 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 No acute infarct. Chronic small vessel ischemia. Demyelinating disease not excluded. Cerebral atrophy. * Patient has been resumed on Eliquis 5 mg twice a day and Plavix 75 mg. * CTA of head and neck showed no significant stenosis. * 2-D echo showed normal left-ventricular size. Borderline concentric LVH, overall left ventricular systolic function is mild to moderately impaired with EF between 40-45%. Left atrium is mildly dilated. * Hemoglobin A1c 6.6 suggestive of mild diabetes (new onset). * Lipid panel with cholesterol 120, LDL 64.8, HDL 35 and triglycerides 101. Continue Lipitor 40 mg. * Continue telemetry monitoring. * EEG in a.m. to rule out focal seizures. Hold off on antiepileptic medication pending EEG. * Dr. Jessee Hurtado Will resume neurology service in the morning.
[2021-04-19] MEDS: FUROSEMIDE 10 MG/ML 4 ML VIAL IV SCH ×2 (04:43→16:19)
[2021-04-19] MEDS: LORazepam 2 MG/ML INJ IV PRN ×3 (05:42→22:05)
[2021-04-19 06:24] LABS: Glucose,Whole Blood 136 mg/dL (75-99)
[2021-04-19] MEDS: PANTOPRAZOLE 40 MG TABLET PO SCH (07:06)
[2021-04-19] MEDS: INSULIN ASPART (NovoLOG) 100 UNIT/ML VIAL SQ SCH ×4 (07:06→21:18)
[2021-04-19] MEDS: METOPROLOL SUCCINATE (ER) 100 MG TAB.ER.24H PO SCH (09:02)
[2021-04-19] MEDS: ESCITALOPRAM 10 MG TAB PO SCH (09:02)
[2021-04-19] MEDS: APIXABAN 5 MG TAB PO SCH ×2 (09:02→21:17)
[2021-04-19] MEDS: MONTELUKAST 10 MG TAB PO SCH (09:02)
[2021-04-19] MEDS: FAMOTIDINE 20 MG TAB PO SCH (09:02)
[2021-04-19] MEDS: ATORVASTATIN 40 MG TAB PO SCH (09:02)
[2021-04-19] MEDS: ISOSORBIDE MONONITRATE ER 30 MG TAB.ER.24H PO SCH (09:02)
[2021-04-19] MEDS: CLOPIDOGREL 75 MG TAB PO SCH (09:02)
[2021-04-19] MEDS: SPIRONOLACTONE 25 MG TAB PO SCH (09:03)
[2021-04-19] MEDS: LOSARTAN-HCTZ 50-12.5 MG 1 EACH TAB PO SCH (09:03)
[2021-04-19 09:31] LABS: Folate, Serum >24.0 ng/mL
[2021-04-19 11:53] LABS: Glucose,Whole Blood 116 mg/dL (75-99)
--- NOTE | 2021-04-19 14:02 | P.PN ---
Subjective Progress Note Date: 04/19/21 No new complaints today. Doing well, pending PT/OT. Objective - Vital Signs Vital signs: Vital Signs Temp 98.2 F 04/19/21 12:40 Pulse 83 04/19/21 12:40 Resp 16 04/19/21 12:40 BP 107/69 04/19/21 12:40 Pulse Ox 95 04/19/21 12:40 Intake & Output 04/18/21 04/19/21 04/19/21 18:59 06:59 18:59 Intake Total 880 240 Output Total 700 600 Balance 180 -360 Weight 76 kg Intake: IV 300 Magnesium Sulfate-D5w Pmx 300 1 gm In Dextrose/Water 1 100ml.bag @ 100 mls/hr IVPB Q1H [facility] Rx#: [id number] Oral 580 240 Output: Urine 700 600 Other: Voiding Method Bedside Commode Bedside Commode Bedside Commode Diaper Diaper Diaper Incontinent Incontinent Incontinent # Voids 3 1 # Bowel Movements 1 1 - Exam Gen: awake, alert HEENT: normocephalic, atraumatic, good hearing acuity, moist mucous membranes Resp: good air exchange, breathing comfortably with no accessory muscle use CVS: good distal perfusion x 4, GI: soft, NTTP, ND : no SPT, no CVAT, river catheter nto present MSK: no pitting edema, no clubbing Neuro: left sided hemianopsia and hemineglect Psych: cooperative, euthymic mood - Labs CBC & Chem 7: 04/18/21 07:32 04/18/21 15:04 Labs: Abnormal Lab Results - Last 24 Hours (Table) 04/18/21 04/18/21 04/19/21 Range/Units 17:02 20:14 06:22 POC Glucose (mg/dL) 117 H 150 H 136 H (75-99) mg/dL 04/19/21 Range/Units 11:51 POC Glucose (mg/dL) 116 H (75-99) mg/dL Assessment and Plan Assessment: L hemineglect, suspected acute CVA -Neuro-Disc Pad Grinding Machine Feeder recs appreciated -C/w Plavix. Resume Eliquis -MRI Brain negative for new acute stroke, demonstrates old strokes. -Neuro-checks -Permissive HTN -C/w Lipitor -PT consult -CLINICAL LAB ASSISTANT eval -Echocardigram ordered -Cardiac monitoring -Neuro consult Syncope -Unclear etiology -F/u Echo -Cardiac monitoring -Fall, seizure precautions Acute systolic CHF exacerbation -Continue with Lasix -Cardiac monitoring -Cardiology consulted -intake and output -Daily weights -C/w Bipap for now Lactic acidosis -IV fluids and monitor for resolution Abnormal LFTs -Monitor for now Chronic conditions: Type II DM, hypertension, hyperlipidemia, COPD, A. fib -Continue with home meds -This was associated with blood glucose monitoring -Check A1c -Hold Eliquis -Permissive hypertension DVT prophylaxis -IPCDs
--- NOTE | 2021-04-19 14:43 | EEG ---
ELECTROENCEPHALOGRAM REPORT DATE OF SERVICE: 04/19/2021 CLINICAL HISTORY: This is an 81-year-old woman with history of old right temporal infarct with reported fluctuation in mentation. Video EEG is obtained to evaluate for seizure epileptiform activity. RELEVANT MEDICATION: The patient is not on any antiepileptic drugs. EEG TYPE: A routine 21 channel EEG is performed with video using the 10/20 electrode placement system. DESCRIPTION: Wakefulness and drowsiness obtained. The background is asymmetrical and is consistent with posterior dominant rhythm over the left hemisphere, is low to moderate voltage of well modulated, well sustained of of 7 to 7.5 hertz activity. While over the right hemisphere, the background consists of diffuse moderate voltage of 1.5 to 2.5 nonrhythmic delta activity. There is no stage 2 sleep architecture seen. There is no focal slowing seen. Interictal and ictal is none. ACTIVATION PROCEDURE: Photic stimulation did not evoke a posterior driving response. There is no abnormality in the photic stimulation. Hyperventilation is not performed. CLINICAL INTERPRETATION: This is an abnormal routine EEG. The background is asymmetrical with mild encephalopathy over the left, while the right is severe. There are no focal slowing, epileptiform discharge or seizure on the EEG. Clinical correlation is recommended. MMODL / IJN: [id number] / ERIC
[2021-04-19] MEDS ORDERED: LACOSAMIDE IV 200 MG in SODIUM CHLORIDE 0.9% 50 ML IVPB STA (16:10)
--- NOTE | 2021-04-19 16:11 | P.PN ---
Subjective Progress Note Date: 04/19/21 I am seeing the patient for the first time for neurological management. Please refer to Dr. Ambriz's note for further details. Per the patient's nurse she agitated and hallucinating. Per the patient nurse a s she seeing that there is chemicals and painful over the room. Also patient is stating "you guys cannot keep me here". Objective - Vital Signs Vital signs: Vital Signs Temp 98.2 F 04/19/21 12:40 Pulse 83 04/19/21 12:40 Resp 16 04/19/21 12:40 BP 107/69 04/19/21 12:40 Pulse Ox 95 04/19/21 12:40 Intake & Output 04/18/21 04/19/21 04/19/21 18:59 06:59 18:59 Intake Total 880 780 Output Total 700 600 Balance 180 180 Weight 76 kg Intake: IV 300 Magnesium Sulfate-D5w Pmx 300 1 gm In Dextrose/Water 1 100ml.bag @ 100 mls/hr IVPB Q1H [facility] Rx#: [id number] Oral 580 780 Output: Urine 700 600 Other: Voiding Method Bedside Commode Bedside Commode Bedside Commode Diaper Diaper Diaper Incontinent Incontinent Incontinent # Voids 3 1 # Bowel Movements 1 1 - Exam GENERAL: The patient is lying in bed and is not in acute distress but seem somewhat restless. NEUROLOGICAL: Higher mental function: The patient is awake, alert, oriented to self, place and time. Patient is able to name objects correctly (pen, watch). Patient is following simple commands but needs redirections. No aphasia and no neglect. Cranial nerves: The pupils are round, equal and reactive to light. Visual cota revealed significant misjudgment in the left visual field for [id number]-[id number] testing. Extraocular movement is intact no nystagmus is noted. The facial strength is normal throughout. No dysarthria is noted. Otherwise rest is limited because of her cooperation. Motor: The strength is On muscle strength testing, there is mild left pronation especially of the hand with some dystonic movements. Muscle strength is normal in arms.While lower she would not follow commands but to painful stimuli she withdrew equally. Normal tone and bulk. Cerebellum: Could not assess.. Sensation: Could not assess light touch. WORK-UP: MRI of the brain is reported as revealed old right temporal lobe infarct (old). No acute infarct. Chronic small vessel ischemia. Demyelinating disease not exc luded. Cerebral atrophy. * Patient has been resumed on Eliquis 5 mg twice a day and Plavix 75 mg. * CTA of head and neck showed no significant stenosis. * 2-D echo showed normal left-ventricular size. Borderline concentric LVH, overall left ventricular systolic function is mild to moderately impaired with EF between 40-45%. Left atrium is mildly dilated. * Hemoglobin A1c 6.6 suggestive of mild diabetes (new onset). * Lipid panel with cholesterol 120, LDL 64.8, HDL 35 and triglycerides 101. Continue Lipitor 40 mg. * Routine EEG on 04/19/2021: It's an abnormal routine EEG. The background is asymmetrical with mild encephalopathy over the left while right is severe. There are no focal slowing, epileptiform discharges or seizure in the EEG. - Labs CBC & Chem 7: 04/18/21 07:32 04/18/21 15:04 Labs: Abnormal Lab Results - Last 24 Hours (Table) 04/18/21 04/18/21 04/19/21 Range/Units 17:02 20:14 06:22 POC Glucose (mg/dL) 117 H 150 H 136 H (75-99) mg/dL 04/19/21 Range/Units 11:51 POC Glucose (mg/dL) 116 H (75-99) mg/dL Assessment and Plan Assessment: * Acute onset of left homonymous hemianopia, left yenni-sensory loss and left hemiataxia/mild dystonia also having hallucintation: Not acute ischemic stroke. Possible clinical seizure especially with history of old stroke which can cause cortical irritability. MRI of the brain revealed no evidence of acute ischemic stroke or bleed. 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 * Hypertension * Elevated glucose, mild diabetes with A1c 6.6. Plan: Patient has been resumed on Eliquis 5 mg twice a day and Plavix 75 mg. On Lipitor 40mg qhs for secondary stroke prophylaxis. I will prophylactically start the patient on Vimpat 50mg 1 tab IV for now and load 200mg once. Recommend outpatient prolonged ambulatory. On seizure precaution and pads. Will defer the rest of medical management to the primary team. DVT prophylaxis: On eliquis. If the patient symptoms improve by tomorrow then she is clear from neurological stand point and she needs to follow-up with a neurologist as outpatient within 1-2 weeks. The plan is discussed with the patient's nurse. Jessee Hurtado MD Neuro-Hospitalist Time with Patient: Less than 30
[2021-04-19 16:39] LABS: Glucose,Whole Blood 143 mg/dL (75-99)
[2021-04-19 20:29] LABS: Glucose,Whole Blood 156 mg/dL (75-99)
[2021-04-20] MEDS: FUROSEMIDE 10 MG/ML 4 ML VIAL IV SCH ×2 (04:29→16:13)
[2021-04-20 06:09] LABS: Glucose,Whole Blood 135 mg/dL (75-99)
[2021-04-20] MEDS: INSULIN ASPART (NovoLOG) 100 UNIT/ML VIAL SQ SCH ×5 (06:47→22:06)
[2021-04-20] MEDS: PANTOPRAZOLE 40 MG TABLET PO SCH (06:47)
[2021-04-20] MEDS: SPIRONOLACTONE 25 MG TAB PO SCH (08:48)
[2021-04-20] MEDS: ATORVASTATIN 40 MG TAB PO SCH (08:48)
[2021-04-20] MEDS: FAMOTIDINE 20 MG TAB PO SCH (08:48)
[2021-04-20] MEDS: APIXABAN 5 MG TAB PO SCH ×2 (08:48→21:57)
[2021-04-20] MEDS: LOSARTAN-HCTZ 50-12.5 MG 1 EACH TAB PO SCH (08:48)
[2021-04-20] MEDS: MONTELUKAST 10 MG TAB PO SCH (08:48)
[2021-04-20] MEDS: ESCITALOPRAM 10 MG TAB PO SCH (08:48)
[2021-04-20] MEDS: ISOSORBIDE MONONITRATE ER 30 MG TAB.ER.24H PO SCH (08:48)
[2021-04-20] MEDS: CLOPIDOGREL 75 MG TAB PO SCH (08:48)
[2021-04-20] MEDS: METOPROLOL SUCCINATE (ER) 100 MG TAB.ER.24H PO SCH (08:48)
[2021-04-20] MEDS: LORazepam 2 MG/ML INJ IV PRN ×2 (08:49→16:13)
[2021-04-20] MEDS ORDERED: LACOSAMIDE IV 50 MG in SODIUM CHLORIDE 0.9% 50 ML IVPB SCH (09:00)
[2021-04-20] MEDS: LACOSAMIDE IV 100 MG in SODIUM CHLORIDE 0.9% 50 ML IVPB SCH ×2 (09:44→21:57)
[2021-04-20 12:02] LABS: Glucose,Whole Blood 120 mg/dL (75-99)
[2021-04-20] MEDS ORDERED: HYDROCORTISONE 10 MG TAB PO SCH (13:15)
--- NOTE | 2021-04-20 14:01 | P.PN ---
Subjective Progress Note Date: 04/20/21 Patient still having hallucinations, left yenni-neglect. Insurance authorization pending prior to discharge. Objective - Vital Signs Vital signs: Vital Signs Temp 98 F 04/20/21 11:59 Pulse 80 04/20/21 11:59 Resp 16 04/20/21 11:59 BP 114/69 04/20/21 11:59 Pulse Ox 94 L 04/20/21 11:59 Intake & Output 04/19/21 04/20/21 04/20/21 18:59 06:59 18:59 Intake Total 1020 120 Output Total 751 820 500 Balance 269 -820 -380 Weight 70.4 kg Intake: Oral 1020 120 Output: Urine 750 820 500 Stool 1 Other: Voiding Method Bedside Commode Bedside Commode Bedside Commode Diaper Diaper Diaper Incontinent Incontinent Incontinent # Voids 1 1 # Bowel Movements 1 - Exam Gen: awake, alert HEENT: normocephalic, atraumatic, good hearing acuity, moist mucous membranes Resp: good air exchange, breathing comfortably with no accessory muscle use CVS: good distal perfusion x 4, GI: soft, NTTP, ND : no SPT, no CVAT, river catheter nto present MSK: no pitting edema, no clubbing Neuro: left sided hemianopsia and hemineglect - Labs CBC & Chem 7: 04/18/21 07:32 04/18/21 15:04 Labs: Abnormal Lab Results - Last 24 Hours (Table) 04/19/21 04/19/21 04/20/21 Range/Units 16:37 20:28 06:07 POC Glucose (mg/dL) 143 H 156 H 135 H (75-99) mg/dL 04/20/21 Range/Units 12:00 POC Glucose (mg/dL) 120 H (75-99) mg/dL Assessment and Plan Assessment: L hemineglect, suspected acute CVA -Neuro-Consulting Solution Manager recs appreciated -C/w Plavix. Resume Eliquis -MRI Brain negative for new acute stroke, demonstrates old strokes. -Neuro-checks -Permissive HTN -C/w Lipitor -PT consult -CARD HANGER eval -Echocardigram ordered -Cardiac monitoring -Neuro consult Syncope -Unclear etiology -F/u Echo -Cardiac monitoring -Fall, seizure precautions Acute systolic CHF exacerbation -Continue with Lasix -Cardiac monitoring -Cardiology consulted -intake and output -Daily weights -C/w Bipap for now Lactic acidosis -IV fluids and monitor for resolution Abnormal LFTs -Monitor for now Chronic conditions: Type II DM, hypertension, hyperlipidemia, COPD, A. fib -Continue with home meds -This was associated with blood glucose monitoring -Check A1c -Hold Eliquis -Permissive hypertension DVT prophylaxis -IPCDs
--- NOTE | 2021-04-20 16:13 | P.PN ---
Subjective Progress Note Date: 04/20/21 The patient nurse the patient continues to be about the same. It continues to be hallucinating talking to people that are not there. Even with Vimpat 50 mg twice a day the nurse stated that had no effect on the patient. Objective - Vital Signs Vital signs: Vital Signs Temp 98 F 04/20/21 11:59 Pulse 80 04/20/21 11:59 Resp 16 04/20/21 11:59 BP 114/69 04/20/21 11:59 Pulse Ox 94 L 04/20/21 11:59 Intake & Output 04/19/21 04/20/21 04/20/21 18:59 06:59 18:59 Intake Total 1020 120 Output Total 751 820 500 Balance 269 -820 -380 Weight 70.4 kg Intake: Oral 1020 120 Output: Urine 750 820 500 Stool 1 Other: Voiding Method Bedside Commode Bedside Commode Bedside Commode Diaper Diaper Diaper Incontinent Incontinent Incontinent # Voids 1 1 # Bowel Movements 1 - Exam GENERAL: The patient is lying in bed and is not in acute distress but seem somewhat restless. NEUROLOGICAL: Higher mental function: The patient is awake, alert, oriented to self, place and time. Patient is able to name objects correctly (pen, watch). Patient is following simple commands but needs redirections. No aphasia and no neglect. Cranial nerves: The pupils are round, equal and reactive to light. Visual cota revealed significant misjudgment in the left visual field for [id number] testing. Extraocular movement is intact no nystagmus is noted. The facial strength is normal throughout. No dysarthria is noted. Otherwise rest is limited because of her cooperation. Motor: The strength is On muscle strength testing, there is mild left pronation especially of the hand with some dystonic movements. Muscle strength is normal in arms.While lower she would not follow commands but to painful stimuli she withdrew equally. Normal tone and bulk. Cerebellum: Could not assess.. Sensation: Could not assess light touch. WORK-UP: MRI of the brain is reported as revealed old right temporal lobe infarct (old). No acute infarct. Chronic small vessel ischemia. Demyelinating disease not excluded. Cerebral atrophy. * Patient has been resumed on Eliquis 5 mg twice a day and Plavix 75 mg. * CTA of head and neck showed no significant stenosis. * 2-D echo showed normal left-ventricular size. Borderline concentric LVH, overall left ventricular systolic function is mild to moderately impaired with EF between 40-45%. Left atrium is mildly dilated. * Hemoglobin A1c 6.6 suggestive of mild diabetes (new onset). * Lipid panel with cholesterol 120, LDL 64.8, HDL 35 and triglycerides 101. Continue Lipitor 40 mg. * Routine EEG on 04/19/2021: It's an abnormal routine EEG. The background is asymmetrical with mild encephalopathy over the left while right is severe. There are no focal slowing, epileptiform discharges or seizure in the EEG. - Labs CBC & Chem 7: 04/18/21 07:32 04/18/21 15:04 Labs: Abnormal Lab Results - Last 24 Hours (Table) 04/19/21 04/19/21 04/20/21 Range/Units 16:37 20:28 06:07 POC Glucose (mg/dL) 143 H 156 H 135 H (75-99) mg/dL 04/20/21 Range/Units 12:00 POC Glucose (mg/dL) 120 H (75-99) mg/dL Assessment and Plan Assessment: * Acute onset of left homonymous hemianopia, left yenni-sensory loss and left hemiataxia/mild dystonia also having hallucintation: Not acute ischemic stroke. Possible clinical seizure especially with history of old stroke (r ight temporal) which can cause cortical irritability. MRI of the brain revealed no evidence of acute ischemic stroke or bleed. 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 * Hypertension * Elevated glucose, mild diabetes with A1c 6.6. Plan: Patient has been resumed on Eliquis 5 mg twice a day and Plavix 75 mg. On Lipitor 40mg qhs for secondary stroke prophylaxis. I prophylactically increased Vimpat from 50mg 1 bid IV to 100mg bid. Recommend outpatient prolonged ambulatory. On seizure precaution and pads. Will defer the rest of medical management to the primary team. She needs to follow-up with a neurologist as outpatient within 1-2 weeks. DVT prophylaxis: On eliquis. The plan is discussed with the patient's nurse and primary team. Jessee Hurtado MD Neuro-Hospitalist Time with Patient: Less than 30
[2021-04-20 16:35] LABS: Glucose,Whole Blood 152 mg/dL (75-99)
[2021-04-20] MEDS ORDERED: HALOPERIDOL LACTATE 5 MG/ML 1 ML VIAL IVP PRN (17:52)
[2021-04-20] MEDS ORDERED: ONDANSETRON 4 MG/2 ML VIAL IVP PRN (17:52)
[2021-04-20] MEDS ORDERED: ALBUTEROL HFA INHALER INHALATION PRN (17:52)
[2021-04-20 19:38] LABS: Glucose,Whole Blood 102 mg/dL (75-99)
[2021-04-20] MEDS ORDERED: ATORVASTATIN 40 MG TAB PO SCH (21:00)
[2021-04-20] MEDS ORDERED: MONTELUKAST 10 MG TAB PO SCH (21:00)
--- NOTE | 2021-04-20 21:55 | CT ---
EXAMINATION TYPE: CT brain wo con DATE OF EXAM: 04/20/2021 COMPARISON: 04/17/2021 HISTORY: hit head, on eliquis CT DLP: 1060.4 mGycm Automated exposure control for dose reduction was used. There is large area of hypodensity involving right temporal lobe consistent with old ischemic infarct . There is no mass effect nor midline shift. There is no sign of intracranial hemorrhage. Calvarium i s intact. There is cerebral atrophy. IMPRESSION: Cerebral atrophy. Old right temporal lobe infarct. No change compared to recent exam.
[2021-04-21] MEDS: FUROSEMIDE 10 MG/ML 4 ML VIAL IV SCH (03:50)
[2021-04-21 06:46] LABS: Glucose,Whole Blood 102 mg/dL (75-99)
[2021-04-21] MEDS: PANTOPRAZOLE 40 MG TABLET PO SCH (06:46)
[2021-04-21] MEDS: INSULIN ASPART (NovoLOG) 100 UNIT/ML VIAL SQ SCH ×7 (06:46→20:52)
[2021-04-21] MEDS ORDERED: LOSARTAN-HCTZ 50-12.5 MG 1 EACH TAB PO SCH (09:00)
[2021-04-21] MEDS ORDERED: FAMOTIDINE 20 MG TAB PO SCH (09:00)
[2021-04-21] MEDS: SPIRONOLACTONE 25 MG TAB PO SCH (09:00)
[2021-04-21] MEDS ORDERED: SPIRONOLACTONE 25 MG TAB PO SCH (09:00)
[2021-04-21] MEDS ORDERED: ISOSORBIDE MONONITRATE ER 30 MG TAB.ER.24H PO SCH (09:00)
[2021-04-21] MEDS ORDERED: METOPROLOL SUCCINATE (ER) 100 MG TAB.ER.24H PO SCH (09:00)
[2021-04-21] MEDS ORDERED: ESCITALOPRAM 10 MG TAB PO SCH (09:00)
[2021-04-21] MEDS: ATORVASTATIN 40 MG TAB PO SCH (09:01)
[2021-04-21] MEDS: APIXABAN 5 MG TAB PO SCH ×2 (09:01→20:52)
[2021-04-21] MEDS: CLOPIDOGREL 75 MG TAB PO SCH (09:01)
[2021-04-21] MEDS: ISOSORBIDE MONONITRATE ER 30 MG TAB.ER.24H PO SCH (09:01)
[2021-04-21] MEDS: MONTELUKAST 10 MG TAB PO SCH (09:01)
[2021-04-21] MEDS: METOPROLOL SUCCINATE (ER) 100 MG TAB.ER.24H PO SCH (09:01)
[2021-04-21] MEDS: FAMOTIDINE 20 MG TAB PO SCH (09:01)
[2021-04-21] MEDS: ESCITALOPRAM 10 MG TAB PO SCH (09:01)
[2021-04-21] MEDS: LACOSAMIDE IV 100 MG in SODIUM CHLORIDE 0.9% 50 ML IVPB SCH (09:22)
[2021-04-21] MEDS: LOSARTAN-HCTZ 50-12.5 MG 1 EACH TAB PO SCH (09:23)
--- NOTE | 2021-04-21 09:55 | P.PN ---
Subjective Progress Note Date: 04/21/21 She was seen at bedside and per the nurse she stated she is doing better today. Patient stated she feels better. Objective - Vital Signs Vital signs: Vital Signs Temp 97.8 F 04/21/21 08:51 Pulse 87 04/21/21 08:51 Resp 18 04/21/21 08:51 BP 131/74 04/21/21 08:51 Pulse Ox 91 L 04/21/21 08:51 Intake & Output 04/20/21 04/21/21 04/21/21 18:59 06:59 18:59 Intake Total 710 Output Total 1100 1320 400 Balance -390 -1320 -400 Weight 73 kg Intake: Intake, IV Titration 50 Amount Lacosamide IV 100 mg In 50 Sodium Chloride 0.9% 50 ml @ 100 mls/hr IVPB BID [facility] Rx#:[id number] Oral 660 Output: Urine 1100 1320 400 Other: Voiding Method Bedside Commode Bedside Commode Diaper Diaper Incontinent Incontinent # Voids 1 - Exam GENERAL: The patient is lying in bed and is not in acute distress. NEUROLOGICAL: Higher mental function: The patient is awake, alert, oriented to self, place and time. Patient is following simple commands. She is more cooperative and does not need redirection compared to prior examination. No aphasia and no neglect. Cranial nerves: The pupils are round, equal and reactive to light. Visual cota are full to confrontation. Extraocular movement is intact no nystagmus is noted. The facial strength is normal throughout. No dysarthria is noted. Motor: The strength is On muscle strength testing is normal in bilateral upper extremities. Is able to lift bilateral lower extremities. Normal tone and bulk. Sensation: Could is normal to touch throughout. WORK-UP: MRI of the brain is reported as revealed old right temporal lobe infarct (old). No acute infarct. Chronic small vessel ischemia. Demyelinating disease not excluded. Cerebral atrophy. * Patient has been resumed on Eliquis 5 mg twice a day and Plavix 75 mg. * CTA of head and neck showed no significant stenosis. * 2-D echo showed normal left-ventricular size. Borderline concentric LVH, ove rall left ventricular systolic function is mild to moderately impaired with EF between 40-45%. Left atrium is mildly dilated. * Hemoglobin A1c 6.6 suggestive of mild diabetes (new onset). * Lipid panel with cholesterol 120, LDL 64.8, HDL 35 and triglycerides 101. Continue Lipitor 40 mg. * Routine EEG on 04/19/2021: It's an abnormal routine EEG. The background is asymmetrical with mild encephalopathy over the left while the right is severe. There are no focal slowing, epileptiform discharges or seizure in the EEG. - Labs CBC & Chem 7: 04/18/21 07:32 04/18/21 15:04 Labs: Abnormal Lab Results - Last 24 Hours (Table) 04/20/21 04/20/21 04/20/21 Range/Units 12:00 16:33 19:37 POC Glucose (mg/dL) 120 H 152 H 102 H (75-99) mg/dL 04/21/21 Range/Units 06:45 POC Glucose (mg/dL) 102 H (75-99) mg/dL Assessment and Plan Assessment: * Acute onset of left homonymous hemianopia, left yenni-sensory loss and left hemiataxia/mild dystonia also having hallucintation: Not acute ischemic stroke. Possible clinical seizure especially with history of old stroke (right temporal) which can cause cortical irritability. MRI of the brain revealed no evidence of acute ischemic stroke or bleed---mentation and hallucination improved today compared to initial presentation. 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 * Hypertension * Elevated glucose, mild diabetes with A1c 6.6. Plan: Patient has been resumed on Eliquis 5 mg twice a day and Plavix 75 mg. On L ipitor 40mg qhs for secondary stroke prophylaxis. On IV Vimpat 100mg bid and will change it to PO. Recommend outpatient prolonged ambulatory (wrote a script for 2 1/2 hours EEG as outpatient). On seizure precaution and pads. Will defer the rest of medical management to the primary team. She needs to follow-up with a neurologist as outpatient within 1-2 weeks. DVT prophylaxis: On eliquis. The plan is discussed with the patient's nurse. The patient is clear from neurological stand point. Jessee Hurtado MD Neuro-Hospitalist Time with Patient: Less than 30
[2021-04-21 11:57] LABS: Glucose,Whole Blood 195 mg/dL (75-99)
[2021-04-21] MEDS ORDERED: HYDROCORTISONE 10 MG TAB PO SCH (12:30)
--- NOTE | 2021-04-21 13:34 | CDI ---
Documentation Clarification Form Date: 04/21/2021 01:18:05 PM From: Yaritza Javier CCS, CCDS Admit Date: 04/17/2021 02:51:00 AM Patient Name: Huma Willoughby Visit Number: [id number] Discharge Date: ATTENTION: The Clinical Documentation Specialists (CDI) and [facility] Coding Staff appreciate your assistance in clarifying documentation. Please respond to the clarification below the line at the bottom and electronically sign. The CDI & [facility] Coding staff will review the response and follow-up if needed. Please note: Queries are made part of the Legal Health Record. If you have any questions, please contact the author of this message via ITS. Dr. Jessee Hurtado: Encephalopathy is documented in the 04/19 EEG and the 04/19 Neurology Progress Notes on 04/19 - 04/21: Routine EEG on 04/19/2021: It's an abnormal routine EEG. The background is asymmetrical with mild encephalopathy over the left while the right is severe. Additional clarification regarding the type of encephalopathy is requested. History/Risk Factors per the 04/17 H/P: Atrial Fibrillation, Chest Pain/Angina, COPD, CVA, Fibromyalgia, GERD, Hypertension, Pneumonia, COVID 19 08/2020. Clinical Indicators: Presented to the ED on 04/17 via EMS after a witnessed fall. [place] dizzy prior to falling, felt shaky & very uneasy with SOB. Found to be in Atrial Fibrillation w/RVR, patient is on Eliquis and also Hypertensive Emergency with CHF. ED Clinical Impression: Fall, Hypertensive emergency, Hypoxia, CHF, Atrial Fibrillation w/RVR, Anxiety, Syncope, CVA 04/17 ED VS: T 98, P 121, R 24, BP 154/131, PO 90 4Lnc, BMI: 26.8 04/17 LAB: WBC 14.9, Neut 12.9, APTT 21.6, BUN 29, Creatinine 1.10, Glucose 233, Lactic Acid: 3.4, 2.2, 2.1, 1.8; Calcium 10.4, AST 57, ALT 47, Albumin 5.1 04/17 Imaging: CT Brain/C Spine: Old right MCA infarct, Spondylotic changes in cervical spine. CXR: Pulmonary congestion appears new compared to old exam and consistent with congestive heart failure. Stable mild cardiomegaly. CT Angio Head/Neck: Old right temporal lobe infarct. No intracranial angiographic abnormality. No evidence of hemodynamic stenosis of the carotid and vertebral arteries. There is approximately 25% stenosis at the origins of the internal carotid arteries bilaterally. MRI Brain: Old right temporal lobe infarct. Chronic small vessel ischemia. Demyelinating disease not excluded. Cerebral atrophy. No acute intracranial abnormality Treatment 04/17: IV Dilaudid, IV Trandate, INH Duoneb 3ml x1, IV Lasix, IV Versed, IV Vasotec, IV Ativan 0.5 mg q6Hr, po Requip Aspiration precautions, Fall precautions, Heart Failure Protocol, Neurological Assessments, Seizure precautions, Ruvalcaba Catheter. Consults: Neurology: Acute ischemic stroke with left homonymous hemianopia, left yenni-sensory loss & left yenni-ataxia. Probably cardioembolic. Plan: Agree with doing MRI Brain Please clarify the type of encephalopathy, if known: [ ] Hypertensive Encephalopathy [ ] Metabolic Encephalopathy [ ] Toxic Encephalopathy [ ] Other, please specify [ ] Unable to determine (Template Last Revised: November 2020) Unable to determine MTDD
--- NOTE | 2021-04-21 13:40 | CDI ---
Documentation Clarification Form Date: 04/21/2021 01:35:00 PM From: Yaritza Javier CCS, CCDS Admit Date: 04/17/2021 02:51:00 AM Patient Name: Huma Willoughby Visit Number: [id number] Discharge Date: ATTENTION: The Clinical Documentation Specialists (CDI) and [facility] Coding Staff appreciate your assistance in clarifying documentation. Please respond to the clarification below the line at the bottom and electronically sign. The CDI & [facility] Coding staff will review the response and follow-up if needed. Please note: Queries are made part of the Legal Health Record. If you have any questions, please contact the author of this message via ITS. Dr. Eron Mello: Per the 04/17 Medical Management Consult: Upon arrival at the emergency room, the patient was in respiratory distress, hypoxic and tachycardic with vitals: BP 154/131, pulse ox 90% at 4 L, and pulse 121. Based on this information and the findings below, is there an additional diagnosis that is clinically appropriate for this patient? History/Risk Factors per the 04/17 H/P: Atrial Fibrillation, Chest Pain/Angina, COPD, CVA, Fibromyalgia, GERD, Hypertension, Pneumonia, COVID 19 08/2020. Clinical Indicators: Presented to the ED on 04/17 via EMS after a witnessed fall. [place] dizzy prior to falling, felt shaky & very uneasy with SOB. Found to be in Atrial Fibrillation w/RVR, patient is on Eliquis and also Hypertensive Emergency with CHF. ED Clinical Impression: Fall, Hypertensive emergency, Hypoxia, CHF, Atrial Fibrillation w/RVR, Anxiety, Syncope, CVA 04/17 ED VS: T 98, P 121, R 24, BP 154/131, PO 90 4Lnc, BMI: 26.8 04/17 LAB: WBC 14.9, Neut 12.9, APTT 21.6, BUN 29, Creatinine 1.10, Glucose 233, Lactic Acid: 3.4, 2.2, 2.1, 1.8; Calcium 10.4, AST 57, ALT 47, Albumin 5.1 04/17 Imaging: CT Brain/C Spine: Old right MCA infarct, Spondylotic changes in cervical spine. CXR: Pulmonary congestion appears new compared to old exam and consistent with congestive heart failure. Stable mild cardiomegaly. CT Angio Head/Neck: Old right temporal lobe infarct. No intracranial angiographic abnormality. No evidence of hemodynamic stenosis of the carotid and vertebral arteries. There is approximately 25% stenosis at the origins of the internal carotid arteries bilaterally. MRI Brain: Old right temporal lobe infarct. Chronic small vessel ischemia. Demyelinating disease not excluded. Cerebral atrophy. No acute intracranial abnormality Treatment 04/17: O2 4Lnc, IV Dilaudid, IV Trandate, INH Duoneb 3ml x1, IV Lasix, IV Versed, IV Vasotec, IV Ativan 0.5 mg q6Hr, po Requip, Aspiration precautions, Fall precautions, Heart Failure Protocol, Neurological Assessments, Seizure precautions, Ruvalcaba Catheter. Is there an additional diagnosis that is clinically appropriate for this patient? [ ] Acute Hypoxic Respiratory Failure [ ] Acute on Chronic Hypoxic Respiratory Failure [ ] Chronic Hypoxic Respiratory Failure [ ] Other Diagnosis, please specify [ ] Unable to determine (Template Last Revised: November 2020) MTDD
--- NOTE | 2021-04-21 14:33 | P.PN ---
Subjective Progress Note Date: 04/21/21 Hospital course: Patient is a very pleasant 81-year-old female with a past medical history of hypertension, hyperlipidemia, chronic systolic heart failure with an EF of 40- 45%, paroxysmal atrial fibrillation on anticoagulation with Eliquis, COPD, previous CVA, fibromyalgia, GERD,, and Covid infection in August 2020. Patient presented to the emergency department on 04/17/21 after reportedly being found down in her home with an unknown down time. Patient reports dizziness prior to falling to ground and reports falling from standing position. Upon arrival to the emergency department patient was reportedly found to be in A. fib RVR with sustained ventricular rate in 120s, hypertensive with blood pressure as high as 180/95, and hypoxic with SpO2 of 90% on 4 L O2 via nasal cannula. Patient was also noted to have left sided yenni-neglect and appeared to having visual and auditory hallucinations. Her initial lactic acid was 3.4 which decreased to 1.8 status post bolus of IV fluids, she was also found to have slightly elevated liver enzymes with AST of 57 and ALT of 47, CK-MB 116, pro-BMP 2160, and troponin of 0.014, 0.021, and 0.033. EKG was completed showing normal sinus rhythm at 88 bpm with no noted T-wave or ST abnormalities. CT brain and cervical spine showing old right MCA infarct with no acute intercranial process and spondylitic changes throughout cervical spine with no acute fracture or subluxation. Chest x-ray showing pulmonary congestion consistent with congestive heart failure. CTA head and neck showing old right temporal lobe infarct with no acute intercranial process and 25% stenosis of the internal carotid arteries bilaterally. MRI brain also showing old right temporal lobe infarct and chronic small vessel ischemia with no acute intercranial abnormalities reported. Echocardiogram completed showing a mild to moderately impaired EF of 40-45% with severe pulmonary hypertension. Patient is admitted under our services with consultation to neurology. Physical exam: Patient was seen and fully evaluated at the bedside this morning. Per nursing reports, patient continues to have outbursts in the evening with increased episodes of visual and auditory hallucinations. Upon time of assessment patient alert to person, place, and time. Patient was able to state her full name, that she was in the hospital, and that it was 2020. Patient was unable to identify month or season. Patient denied having visual or auditory hallucinations at time of assessment. Likely increased episodes of confusion and hallucinations occurring in the evening possibly secondary to sundowner's. When necessary Haldol discontinued and patient placed on Zyprexa 7.5 mg nightly. Patient dinorah lili with left-sided yenni-neglect. Vital signs reviewed and stable. General: Nontoxic, no distress and appears stated age. Derm: Skin warm and dry, normal coloration for ethnicity. Head: Atraumatic, normocephalic and symmetric. Eyes: EOMs intact, no lid lag, and anicteric sclera Mouth: no lip lesions, mucus membranes moist Cardiovascular: regular rate and rhythm with normal S1S2, no murmur, positive posterior tibial pulses bilaterally, and cap refill < 2 seconds. Lungs: Respirations even, regular, and unlabored on room air. Lungs CTA bilaterally, no rhonchi, no rales, no wheezing, and no accessory muscle usage. Abdominal: soft, nontender to palpation, no guarding, no appreciable or ganomegaly Ext: ROM intact. No gross muscle atrophy, no edema, no contractures Neuro: Speech clear, face symmetrical. Patient continues with left-sided yenni- neglect. Psych: Alert and oriented to person, place, and time.. Appropriate and pleasant affect. Assessment and Plan of Care: Left-sided yenni-neglect accompanied by visual and auditory hallucinations, possibly secondary to clinical seizure as reported by neurologist Syncope, unclear etiology -EKG was completed showing normal sinus rhythm at 88 bpm with no noted T-wave or ST abnormalities. -CT brain and cervical spine showing old right MCA infarct with no acute intercranial process and spondylitic changes throughout cervical spine with no acute fracture or subluxation. -CTA head and neck showing old right temporal lobe infarct with no acute intercranial process and 25% stenosis of the internal carotid arteries bilaterally. -MRI brain also showing old right temporal lobe infarct and chronic small vessel ischemia with no acute intercranial abnormalities reported. -Echocardiogram completed showing a mild to moderately impaired EF of 40-45% with severe pulmonary hypertension. -Continue atorvastatin 40 mg nightly and neurology increase Vimpat 200 mg twice daily. -Continue seizure precautions. -Secondary to increased confusion at night and concerns of sundowner's, discontinued when necessary Haldol in place patient on nightly Zyprexa. Acute on chronic systolic heart failure with EF of 40-45% -Chest x-ray showing pulmonary congestion consistent with congestive heart failure. -Echocardiogram completed showing a mild to moderately impaired EF of 40-45% with severe pulmonary hypertension. -Transitioned to oral Lasix. -Urinary Output over past 24 hours 2400 mL -Continue daily medication regimen with atorvastatin, Plavix, Lasix, Aldactone, Imdur, losartan, and metoprolol. Prediabetes -Hemoglobin A1c 6.6% Lactic acidosis, resolved, Elevated LFTs -We will continue to monitor Hypertension -Monitor vital signs and continue daily medication regimen with metoprolol, losartan, and Imdur. Hyperlipidemia -Continue daily medication regimen with atorvastatin. -Heart healthy diet Paroxysmal Atrial fibrillation -Continue anticoagulation with Eliquis CODE STATUS: Full code DVT prophylaxis: Eliquis Discussed with: Patient, social economist and RN Anticipated discharge date: Pending insurance authorization Anticipated discharge place: [facility], [facility] A total of 45 minutes was spent on the care of this complex patient more than 50% of the time was spent in counseling and care coordination. Objective - Vital Signs Vital signs: Vital Signs Temp 97.8 F 04/21/21 08:51 Pulse 87 04/21/21 08:51 Resp 18 04/21/21 08:51 BP 131/74 04/21/21 08:51 Pulse Ox 91 L 04/21/21 08:51 Intake & Output 04/20/21 04/21/21 04/21/21 18:59 06:59 18:59 Intake Total 710 Output Total 1100 1320 400 Balance -390 -1320 -400 Weight 73 kg Intake: Intake, IV Titration 50 Amount Lacosamide IV 100 mg In 50 Sodium Chloride 0.9% 50 ml @ 100 mls/hr IVPB BID [facility] Rx#:[id number] Oral 660 Output: Urine 1100 1320 400 Other: Voiding Method Bedside Commode Bedside Commode Diaper Diaper Incontinent Incontinent # Voids 1 - Labs CBC & Chem 7: 04/18/21 07:32 04/18/21 15:04 Labs: Abnormal Lab Results - Last 24 Hours (Table) 04/20/21 04/20/21 04/20/21 Range/Units 12:00 16:33 19:37 POC Glucose (mg/dL) 120 H 152 H 102 H (75-99) mg/dL 04/21/21 Range/Units 06:45 POC Glucose (mg/dL) 102 H (75-99) mg/dL
[2021-04-21 15:03] LABS: HCT 41.6 % (34.0-46.0); HGB 14.5 gm/dL (11.4-16.0); MCH 34.1 pg (25.0-35.0); MCHC 34.8 g/dL (31.0-37.0); MCV 97.8 fL (80.0-100.0); Mean Platelet Volume 9.4; Platelet Count 241 k/uL (150-450); RBC 4.25 m/uL (3.80-5.40); RDW 13.8 % (11.5-15.5); WBC 10.5 k/uL (3.8-10.6)
[2021-04-21 15:20] LABS: Albumin 4.6 g/dL (3.5-5.0); Calcium 9.6 mg/dL (8.4-10.2); Magnesium 1.8 mg/dL (1.6-2.3); Potassium 3.2 mmol/L (3.5-5.1); Total Bilirubin 1.3 mg/dL (0.2-1.3); Total Protein 7.5 g/dL (6.3-8.2)
[2021-04-21 16:50] LABS: Glucose,Whole Blood 105 mg/dL (75-99)
[2021-04-21] MEDS: FUROSEMIDE 40 MG TAB PO SCH (17:49)
[2021-04-21 20:25] LABS: Glucose,Whole Blood 128 mg/dL (75-99)
[2021-04-21] MEDS: LACOSAMIDE 50 MG TABLET PO SCH (20:53)
[2021-04-21] MEDS ORDERED: OLANZapine 7.5 MG TAB PO SCH (21:00)
[2021-04-22 06:10] LABS: Glucose,Whole Blood 105 mg/dL (75-99)
[2021-04-22] MEDS: INSULIN ASPART (NovoLOG) 100 UNIT/ML VIAL SQ SCH ×4 (06:13→11:58)
[2021-04-22] MEDS: PANTOPRAZOLE 40 MG TABLET PO SCH (06:32)
--- NOTE | 2021-04-22 08:38 | CDI ---
Documentation Clarification Form Date: 04/21/2021 01:35:00 PM From: Yaritza Javier CCS, CCDS Admit Date: 04/17/2021 02:51:00 AM Patient Name: Huma Willoughby Visit Number: [id number] Discharge Date: ATTENTION: The Clinical Documentation Specialists (CDI) and [facility] Coding Staff appreciate your assistance in clarifying documentation. Please respond to the clarification below the line at the bottom and electronically sign. The CDI & [facility] Coding staff will review the response and follow-up if needed. Please note: Queries are made part of the Legal Health Record. If you have any questions, please contact the author of this message via ITS. Dr. Eron Mello: Per the 04/17 Medical Management Consult: Upon arrival at the emergency room, the patient was in respiratory distress, hypoxic and tachycardic with vitals: BP 154/131, pulse ox 90% at 4 L, and pulse 121. Based on this information and the findings below, is there an additional diagnosis that is clinically appropriate for this patient? History/Risk Factors per the 04/17 H/P: Atrial Fibrillation, Chest Pain/Angina, COPD, CVA, Fibromyalgia, GERD, Hypertension, Pneumonia, COVID 19 08/2020. Clinical Indicators: Presented to the ED on 04/17 via EMS after a witnessed fall. [place] dizzy prior to falling, felt shaky & very uneasy with SOB. Found to be in Atrial Fibrillation w/RVR, patient is on Eliquis and also Hypertensive Emergency with CHF. ED Clinical Impression: Fall, Hypertensive emergency, Hypoxia, CHF, Atrial Fibrillation w/RVR, Anxiety, Syncope, CVA 04/17 ED VS: T 98, P 121, R 24, BP 154/131, PO 90 4Lnc, BMI: 26.8 04/17 LAB: WBC 14.9, Neut 12.9, APTT 21.6, BUN 29, Creatinine 1.10, Glucose 233, Lactic Acid: 3.4, 2.2, 2.1, 1.8; Calcium 10.4, AST 57, ALT 47, Albumin 5.1 04/17 Imaging: CT Brain/C Spine: Old right MCA infarct, Spondylotic changes in cervical spine. CXR: Pulmonary congestion appears new compared to old exam and consistent with congestive heart failure. Stable mild cardiomegaly. CT Angio Head/Neck: Old right temporal lobe infarct. No intracranial angiographic abnormality. No evidence of hemodynamic stenosis of the carotid and vertebral arteries. There is approximately 25% stenosis at the origins of the internal carotid arteries bilaterally. MRI Brain: Old right temporal lobe infarct. Chronic small vessel ischemia. Demyelinating disease not excluded. Cerebral atrophy. No acute intracranial abnormality Treatment 04/17: O2 4Lnc, IV Dilaudid, IV Trandate, INH Duoneb 3ml x1, IV Lasix, IV Versed, IV Vasotec, IV Ativan 0.5 mg q6Hr, po Requip, Aspiration precautions, Fall precautions, Heart Failure Protocol, Neurological Assessments, Seizure precautions, Ruvalcaba Catheter. Is there an additional diagnosis that is clinically appropriate for this patient? [ ] Acute Hypoxic Respiratory Failure [ ] Acute on Chronic Hypoxic Respiratory Failure [ ] Chronic Hypoxic Respiratory Failure [ ] Other Diagnosis, please specify [ ] Unable to determine (Template Last Revised: November 2020) MTDD
[2021-04-22 08:56] VITALS: RESP 20
[2021-04-22] MEDS: CLOPIDOGREL 75 MG TAB PO SCH (09:02)
[2021-04-22] MEDS: MONTELUKAST 10 MG TAB PO SCH (09:02)
[2021-04-22] MEDS: FUROSEMIDE 40 MG TAB PO SCH ×2 (09:02→17:06)
[2021-04-22] MEDS: ISOSORBIDE MONONITRATE ER 30 MG TAB.ER.24H PO SCH (09:02)
[2021-04-22] MEDS: ATORVASTATIN 40 MG TAB PO SCH (09:02)
[2021-04-22] MEDS: APIXABAN 5 MG TAB PO SCH (09:02)
[2021-04-22] MEDS: METOPROLOL SUCCINATE (ER) 100 MG TAB.ER.24H PO SCH (09:03)
[2021-04-22] MEDS: ESCITALOPRAM 10 MG TAB PO SCH (09:03)
[2021-04-22] MEDS: LACOSAMIDE 50 MG TABLET PO SCH (09:03)
[2021-04-22] MEDS: FAMOTIDINE 20 MG TAB PO SCH (09:03)
[2021-04-22] MEDS: SPIRONOLACTONE 25 MG TAB PO SCH (09:03)
[2021-04-22] MEDS: LOSARTAN-HCTZ 50-12.5 MG 1 EACH TAB PO SCH (09:04)
[2021-04-22 11:43] LABS: Glucose,Whole Blood 117 mg/dL (75-99)
--- NOTE | 2021-04-22 13:39 | P.DS ---
Providers Date of admission: 04/17/21 02:51 Expected date of discharge: 04/22/21 Attending physician: Eron Mello MD Consults: 04/17/21 04:25 Consult Physician Urgent Consulting Provider: Jessee Hurtado Consult Reason/Comments: CVA Do you want consulting provider notified?: Yes 04/17/21 06:51 Consult Physician Routine Consulting Provider: Eron Mello Consult Reason/Comments: med manage Do you want consulting provider notified?: Yes Primary care physician: Ward Lynch Hospital Course: Discharge Diagnosis: Left-sided yenni-neglect accompanied by visual and auditory hallucinations, likely secondary to clinical seizure as reported by neurologist Syncope, unclear etiology Acute on chronic systolic heart failure with EF of 40-45% Prediabetes Lactic acidosis, resolved, Elevated LFTs, improved Hypertension Hyperlipidemia Paroxysmal Atrial fibrillation Hospital Course: Patient is a very pleasant 81-year-old female with a past medical history of hypertension, hyperlipidemia, chronic systolic heart failure with an EF of 40- 45%, paroxysmal atrial fibrillation on anticoagulation with Eliquis, COPD, previous CVA, fibromyalgia, GERD,, and Covid infection in August 2020. Patient presented to the emergency department on 04/17/21 after reportedly being found down in her home with an unknown down time. Patient reports dizziness prior to falling to ground and reports falling from standing position. Upon arrival to the emergency department patient was reportedly found to be in A. fib RVR with sustained ventricular rate in 120s, hypertensive with blood pressure as high as 180/95, and hypoxic with SpO2 of 90% on 4 L O2 via nasal cannula. Patient was also noted to have left sided yenni-neglect and appeared to having visual and auditory hallucinations. Her initial lactic acid was 3.4 which decreased to 1.8 status post bolus of IV fluids, she was also found to have slightly elevated liver enzymes with AST of 57 and ALT of 47, CK-MB 116, pro-BMP 2160, and troponin of 0.014, 0.021, and 0.033. EKG was completed showing normal sinus rhythm at 88 bpm with no noted T-wave or ST abnormalities. CT brain and cervical spine showing old right MCA infarct with no acute intercranial process and spondylitic changes throughout cervical spine with no acute fracture or subluxation. Chest x-ray showing pulmonary congestion consistent with congestive heart failure. CTA head and neck showing old right temporal lobe infarct with no acute intercranial process and 25% stenosis of the internal carotid arteries bilaterally. MRI brain also showing old right temporal lobe infarct and chronic small vessel ischemia with no acute intercranial abnormalities reported. Echocardiogram completed showing a mild to moderately impaired EF of 40-45% with severe pulmonary hypertension. Patient was admitted under our services with consultation to neurology. [facility] patient was noted to have increased confusion with outbursts in the evening accompanied by visual and auditory hallucinations. Patient was started on Zyprexa for treatment. Patient was also started on Vimpat by neurology for concerns of underlying clinical seizures. Patient's mentation significantly improved. Patient is being discharged to [facility] at this time. Physical exam: Patient was seen and fully evaluated at the bedside this morning. Patient was started on Zyprexa yesterday evening and had no further episodes of agitation, confusion, outbursts, or episodes of visual and auditory hallucinations. Patient reportedly slept throughout the night and awoke without any complaints. Patient alert to person, time, place, and situation. Left-sided yenni-neglect is resolved, patient moving bilateral upper and lower extremities without difficulties. Vital signs reviewed and stable. General: Nontoxic, no distress and appears stated age. Derm: Skin warm and dry, normal coloration for ethnicity. Head: Atraumatic, normocephalic and symmetric. Eyes: EOMs intact, no lid lag, and anicteric sclera Mouth: no lip lesions, mucus membranes moist Cardiovascular: regular rate and rhythm with normal S1S2, no murmur, positive posterior tibial pulses bilaterally, and cap refill < 2 seconds. Lungs: Respirations even, regular, and unlabored on room air. Lungs CTA bilaterally, no rhonchi, no rales, no wheezing, and no accessory muscle usage. Abdominal: soft, nontender to palpation, no guarding, no appreciable organomegaly Ext: ROM intact. No gross muscle atrophy, no edema, no contractures. Movement and sensation is intact. Neuro: Speech clear, face symmetrical. Moving upper and lower extremities with equal and moderate strength. Psych: Alert and oriented to person, place, situation and time.. Appropriate and pleasant affect. A total of 45 minutes of time were spent preparing this complex discharge summary. Patient Condition at Discharge: Stable Plan - Discharge Summary Discharge Rx Participant: No New Discharge Prescriptions: New Lacosamide [Vimpat] 100 mg PO BID 30 Days #60 tablet OLANZapine [ZyPREXA] 7.5 mg PO HS 30 Days #30 tab Furosemide [Lasix] 40 mg PO BID@0900,1600 30 Days #60 tab Continue Apixaban [Eliquis] 5 mg PO BID #60 tab rOPINIRole HCL [Requip] 0.25 mg PO HS #30 tab Spironolactone [Aldactone] 25 mg PO DAILY Atorvastatin [Lipitor] 40 mg PO DAILY #90 tab Clopidogrel [Plavix] 75 mg PO DAILY #90 tab Montelukast [Singulair] 10 mg PO DAILY Metoprolol Succinate [Toprol XL] 200 mg PO DAILY Losartan/Hydrochlorothiazide [Hyzaar 100-25 Tablet] 1 tab PO DAILY Isosorbide Mononitrate ER [Imdur] 30 mg PO DAILY Escitalopram [Lexapro] 10 mg PO DAILY Famotidine 40 mg PO DAILY Albuterol Inhaler [Ventolin Hfa Inhaler] 2 puff INHALATION RT-Q4H PRN PRN Reason: Shortness Of Breath Nitroglycerin Sl Tabs [Nitrostat] 0.4 mg SL Q5M PRN PRN Reason: Chest Pain Discharge Medication List Apixaban [Eliquis] 5 mg PO BID #60 tab 09/24/20 [Rx] rOPINIRole HCL [Requip] 0.25 mg PO HS #30 tab 10/04/20 [Rx] Spironolactone [Aldactone] 25 mg PO DAILY 11/18/20 [History] Atorvastatin [Lipitor] 40 mg PO DAILY #90 tab 11/25/20 [Rx] Clopidogrel [Plavix] 75 mg PO DAILY #90 tab 11/25/20 [Rx] Albuterol Inhaler [Ventolin Hfa Inhaler] 2 puff INHALATION RT-Q4H PRN 04/17/21 [History] Escitalopram [Lexapro] 10 mg PO DAILY 04/17/21 [History] Famotidine 40 mg PO DAILY 04/17/21 [History] Isosorbide Mononitrate ER [Imdur] 30 mg PO DAILY 04/17/21 [History] Losartan/Hydrochlorothiazide [Hyzaar 100-25 Tablet] 1 tab PO DAILY 04/17/21 [History] Metoprolol Succinate [Toprol XL] 200 mg PO DAILY 04/17/21 [History] Montelukast [Singulair] 10 mg PO DAILY 04/17/21 [History] Nitroglycerin Sl Tabs [Nitrostat] 0.4 mg SL Q5M PRN 04/17/21 [History] Furosemide [Lasix] 40 mg PO BID@0900,1600 30 Days #60 tab 04/22/21 [Rx] Lacosamide [Vimpat] 100 mg PO BID 30 Days #60 tablet 04/22/21 [Rx] OLANZapine [ZyPREXA] 7.5 mg PO HS 30 Days #30 tab 04/22/21 [Rx] Follow up Appointment(s)/Referral(s): Ward Lynch MD [Primary Care Provider] - 1-2 days [facility], [NON-STAFF] - Discharge Disposition: TRANSFER TO SNF/ECF
--- NOTE | 2021-04-22 14:43 | P.PN ---
Subjective Progress Note Date: 04/22/21 She was seen at bedside and she continues to be doing well and the better. Per the patient nurse she's better. She has not been hallucinating or been restless in the morning. Objective - Vital Signs Vital signs: Vital Signs Temp 97.6 F 04/22/21 11:56 Pulse 72 04/22/21 11:56 Resp 20 04/22/21 11:56 BP 116/71 04/22/21 11:56 Pulse Ox 99 04/22/21 11:56 Intake & Output 04/21/21 04/22/21 04/22/21 18:59 06:59 18:59 Intake Total 240 236 Output Total 400 Balance -160 236 Weight 75.5 kg Intake: Oral 240 236 Output: Urine 400 Other: Voiding Method Bedside Commode # Voids 1 1 - Exam GENERAL: The patient is lying in bed and is not in acute distress. NEUROLOGICAL: Higher mental function: The patient is awake, alert, oriented to self, place and time. Patient is following simple commands. She is more cooperative and does not need redirection compared to prior examination. No aphasia and no neglect. Cranial nerves: The pupils are round, equal and reactive to light. Visual cota are full to confrontation. Extraocular movement is intact no nystagmus is noted. The facial strength is normal throughout. No dysarthria is noted. Motor: The strength is On muscle strength testing is normal in bilateral upper extremities. Is able to lift bilateral lower extremities. Normal tone and bulk. Sensation: Could is normal to touch throughout. WORK-UP: MRI of the brain is reported as revealed old right temporal lobe infarct (old). No acute infarct. Chronic small vessel ischemia. Demyelinating disease not excluded. Cerebral atrophy. * Patient has been resumed on Eliquis 5 mg twice a day and Plavix 75 mg. * CTA of head and neck showed no significant stenosis. * 2-D echo showed normal left-ventricular size. Borderline concentric LVH, overall left ventricular systolic function is mild to moderately impaired with EF between 40-45%. Left atrium is mildly dilated. * Hemoglobin A1c 6.6 suggestive of mild diabetes (new onset). * Lipid panel with cholesterol 120, LDL 64.8, HDL 35 and triglycerides 101. Continue Lipitor 40 mg. * Routine EEG on 04/19/2021: It's an abnormal routine EEG. The background is asymmetrical with mild encephalopathy over the left while the right is severe. There are no focal slowing, epileptiform discharges or seizure in the EEG. - Labs CBC & Chem 7: 04/21/21 14:40 04/21/21 14:40 Labs: Abnormal Lab Results - Last 24 Hours (Table) 04/21/21 04/21/21 04/21/21 Range/Units 14:40 16:48 20:23 Sodium 134 L (137-145) mmol/L Potassium 3.2 L (3.5-5.1) mmol/L Chloride 92 L (98-107) mmol/L BUN 59 H (7-17) mg/dL Creatinine 2.21 H (0.52-1.04) mg/dL Glucose 116 H (74-99) mg/dL POC Glucose (mg/dL) 105 H 128 H (75-99) mg/dL AST 37 H (14-36) U/L 04/22/21 04/22/21 Range/Units 06:09 11:41 Sodium (137-145) mmol/L Potassium (3.5-5.1) mmol/L Chloride (98-107) mmol/L BUN (7-17) mg/dL Creatinine (0.52-1.04) mg/dL Glucose (74-99) mg/dL POC Glucose (mg/dL) 105 H 117 H (75-99) mg/dL AST (14-36) U/L Assessment and Plan Assessment: * Acute onset of left homonymous hemianopia, left yenni-sensory loss and left hemiataxia/mild dystonia also having hallucintation: Not acute ischemic stroke. Possible clinical seizure especially with history of old stroke (right temporal) which can cause cortical irritability. MRI of the brain revealed no evidence of acute ischemic stroke or bleed---mentation and hallucination improved today compared to initial presentation. 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 * Hypertension * Elevated glucose, mild diabetes with A1c 6.6. Plan: Patient has been resumed on Eliquis 5 mg twice a day and Plavix 75 mg. On Lipitor 40mg qhs for secondary stroke prophylaxis. On IV Vimpat 100mg bid and will change it to PO. Recommend outpatient prolonged ambulatory (wrote a script for 2 1/2 hours EEG as outpatient). On seizure precaution and pads. Will defer the rest of medical management to the primary team. She needs to follow-up with a neurologist as outpatient within 1-2 weeks. DVT prophylaxis: On eliquis. The plan is discussed with the patient's nurse. The patient is clear from neurological stand point. Neurology will sign off. Please reconsult if needed. Jessee Hurtado MD Neuro-Hospitalist Time with Patient: Less than 30
[2021-04-22 16:49] VITALS: BP 96/53; PULSE 71; TEMP 97.9
[2021-04-22 17:18] LABS: Glucose,Whole Blood 126 mg/dL (75-99)
--- NOTE | 2021-05-03 07:36 | CDI ---
Documentation Clarification Form Date: 04/21/2021 01:35:00 PM From: Yaritza Javier CCS, CCDS Admit Date: 04/17/2021 02:51:00 AM Patient Name: Huma Willoughby Visit Number: [id number] Discharge Date: 04/22/2021 05:39:00 PM ATTENTION: The Clinical Documentation Specialists (CDI) and [facility] Coding Staff appreciate your assistance in clarifying documentation. Please respond to the clarification below the line at the bottom and electronically sign. The CDI & [facility] Coding staff will review the response and follow-up if needed. Please note: Queries are made part of the Legal Health Record. If you have any questions, please contact the author of this message via ITS. Dr. Eron Mello: Per the 04/17 Medical Management Consult: Upon arrival at the emergency room, the patient was in respiratory distress, hypoxic and tachycardic with vitals: BP 154/131, pulse ox 90% at 4 L, and pulse 121. Based on this information and the findings below, is there an additional diagnosis that is clinically appropriate for this patient? History/Risk Factors per the 04/17 H/P: Atrial Fibrillation, Chest Pain/Angina, COPD, CVA, Fibromyalgia, GERD, Hypertension, Pneumonia, COVID 19 08/2020. Clinical Indicators: Presented to the ED on 04/17 via EMS after a witnessed fall. Camino dizzy prior to falling, felt shaky & very uneasy with SOB. Found to be in Atrial Fibrillation w/RVR, patient is on Eliquis and also Hypertensive Emergency with CHF. ED Clinical Impression: Fall, Hypertensive emergency, Hypoxia, CHF, Atrial Fibrillation w/RVR, Anxiety, Syncope, CVA 04/17 ED VS: T 98, P 121, R 24, BP 154/131, PO 90 4Lnc, BMI: 26.8 04/17 LAB: WBC 14.9, Neut 12.9, APTT 21.6, BUN 29, Creatinine 1.10, Glucose 233, Lactic Acid: 3.4, 2.2, 2.1, 1.8; Calcium 10.4, AST 57, ALT 47, Albumin 5.1 04/17 Imaging: CT Brain/C Spine: Old right MCA infarct, Spondylotic changes in cervical spine. CXR: Pulmonary congestion appears new compared to old exam and consistent with congestive heart failure. Stable mild cardiomegaly. CT Angio Head/Neck: Old right temporal lobe infarct. No intracranial angiographic abnormality. No evidence of hemodynamic stenosis of the carotid and vertebral arteries. There is approximately 25% stenosis at the origins of the internal carotid arteries bilaterally. MRI Brain: Old right temporal lobe infarct. Chronic small vessel ischemia. Demyelinating disease not excluded. Cerebral atrophy. No acute intracranial abnormality Treatment 04/17: O2 4Lnc, IV Dilaudid, IV Trandate, INH Duoneb 3ml x1, IV Lasix, IV Versed, IV Vasotec, IV Ativan 0.5 mg q6Hr, po Requip, Aspiration precautions, Fall precautions, Heart Failure Protocol, Neurological Assessments, Seizure precautions, [place] Catheter. Is there an additional diagnosis that is clinically appropriate for this patient? [ ] Acute Hypoxic Respiratory Failure [ ] Acute on Chronic Hypoxic Respiratory Failure [ ] Chronic Hypoxic Respiratory Failure [ ] Other Diagnosis, please specify [ ] Unable to determine (Template Last Revised: November 2020) MTDD
== END 2021-04-22 17:39 | DRG 100 ==
LOC: SUPCPDRO 00:54 → EC 00:54 → 3SCARD 02:51 → UNDODISIN 04-20 17:14
PROVIDERS: ADMIT Internal Medicine; ATTEND Internal Medicine
DX: R56.9 Unspecified convulsions (principal); I50.23 Acute on chronic systolic (congestive) heart failure; I16.1 Hypertensive emergency; R41.4 Neurologic neglect syndrome; R44.3 Hallucinations, unspecified; E87.2 Acidosis; I42.9 Cardiomyopathy, unspecified; I48.0 Paroxysmal atrial fibrillation; J44.9 Chronic obstructive pulmonary disease, unspecified; M79.7 Fibromyalgia; Z86.73 Personal history of transient ischemic attack (TIA), and cerebral infarction without residual deficits; Z86.16 Personal history of COVID-19; K21.9 Gastro-esophageal reflux disease without esophagitis; Z20.822 Contact with and (suspected) exposure to COVID-19; Z87.01 Personal history of pneumonia (recurrent); Z79.82 Long term (current) use of aspirin; Z79.02 Long term (current) use of antithrombotics/antiplatelets; Z79.01 Long term (current) use of anticoagulants; H53.462 Homonymous bilateral field defects, left side; E11.65 Type 2 diabetes mellitus with hyperglycemia; R55 Syncope and collapse; E78.5 Hyperlipidemia, unspecified; M25.552 Pain in left hip; I11.0 Hypertensive heart disease with heart failure; F41.9 Anxiety disorder, unspecified; D72.829 Elevated white blood cell count, unspecified; I25.10 Atherosclerotic heart disease of native coronary artery without angina pectoris; Z95.5 Presence of coronary angioplasty implant and graft; Z96.612 Presence of left artificial shoulder joint; Z96.611 Presence of right artificial shoulder joint; Z90.710 Acquired absence of both cervix and uterus; Z82.49 Family history of ischemic heart disease and other diseases of the circulatory system; I27.20 Pulmonary hypertension, unspecified; R09.02 Hypoxemia; H35.30 Unspecified macular degeneration; G24.9 Dystonia, unspecified; Z79.899 Other long term (current) drug therapy; W19.XXXA Unspecified fall, initial encounter; R29.711 NIHSS score 11
CPT/HCPCS: 36415; 70450; 70496; 70498; 70553; 71045; 72125; 73502; 80053; 80061; 80306; 80320; 81001; 82550; 82607; 82746; 83036; 83605; 83735; 83880; 83921; 84100; 84132; 84207; 84443; 84484; 85025; 85027; 85610; 85730; 86850; 86900; 86901; 87635; 93005; 93306; 94640; 94660; 94760; 95816; 96374; 96375; 99291

== ENCOUNTER → 2021-05-10 | Outpatient (CLI) | payer MEDICARE, OTHER | LOC: NEUROMAIN 09:53 | PROVIDERS: ATTEND Student in an Organized Health Care Education/Training Program | DX: G40.909 Epilepsy, unspecified, not intractable, without status epilepticus (principal); Z88.5 Allergy status to narcotic agent; Z88.6 Allergy status to analgesic agent | CPT/HCPCS: 95713 ==

== ENCOUNTER → 2021-05-10 | Outpatient (CLI) | payer MEDICARE, OTHER ==
--- NOTE | 2021-05-12 11:39 | P.ARTDOP ---
Arterial Doppler LOWER EXTREMITY ARTERIAL DOPPLER: DATE OF SERVICE: 05/10/2021 Reason for study: Suspected vascular disease. Doppler waveforms: Multiphasic bilaterally throughout. Pulse volume recording: []. Pressure gradients: None. Ankle-brachial indices: Greater than 1 bilaterally. Toe brachial indices: 0.67 on the right, 0.67 on the left Impression: Normal study.
== END | disposition home or self-care (01) ==
LOC: RADUSWWP 12:53
PROVIDERS: ATTEND Family Medicine
DX: Z03.89 Encounter for observation for other suspected diseases and conditions ruled out (principal)
CPT/HCPCS: 93922

== ENCOUNTER → 2021-06-21 | Outpatient (CLI) | payer MEDICARE, OTHER ==
[2021-06-21 14:38] LABS: BUN/Creat Ratio 26.48 Ratio (12.00-20.00); Globulin 2.9 g/dL (1.6-3.3)
[2021-06-21 14:39] LABS: African American GFR (CKD) 55.8 (60.0-200.0); Albumin 4.6 g/dL (3.8-4.9); Albumin/Globulin Ratio 1.6 (1.60-3.17); Anion Gap 13.2 mmol/L (4.00-12.00); Blood Urea Nitrogen 28.6 mg/dL (9.0-27.0); Calcium 10.3 mg/dL (8.7-10.3); Carbon Dioxide 26.1 mmol/L (21.6-31.8); Chol/HDL Ratio 2.89 Ratio; HDL Cholesterol 39.8 mg/dL (40.00-60.00); LDL Cholesterol,Calculated 46.6 mg/dL (0.0-131.0); Non-African American GFR(CKD) 48.1 (60.0-200.0); Potassium 5.1 mmol/L (3.5-5.5); Total Bilirubin 0.7 mg/dL (0.30-1.20); Total Protein 7.5 g/dL (6.2-8.2); VLDL Calculation 28.6 mg/dL (5.00-40.00)
== END | disposition home or self-care (01) ==
LOC: LABWHC1 07:50
PROVIDERS: ATTEND Internal Medicine Interventional Cardiology
DX: E78.2 Mixed hyperlipidemia (principal)
CPT/HCPCS: 36415; 80053; 80061

== ENCOUNTER → 2021-11-15 | Outpatient (CLI) | payer MEDICARE, OTHER ==
[2021-11-15 18:28] LABS: ALT 24 U/L (8-44); AST 26 U/L (13-35); African American GFR (CKD) 40.7 (60.0-200.0); Albumin 4.7 g/dL (3.8-4.9); Albumin/Globulin Ratio 1.42 (1.60-3.17); Alkaline Phosphatase 72 U/L (41-126); BUN/Creat Ratio 22.86 Ratio (12.00-20.00); Calcium 10.7 mg/dL (8.7-10.3); Carbon Dioxide 24.4 mmol/L (20.0-27.5); Chloride 106 mmol/L (96-109); Chol/HDL Ratio 3.07 Ratio; Globulin 3.3 g/dL (1.6-3.3); Glucose 104 mg/dL (70-110); LDL Cholesterol,Calculated 64.2 mg/dL (0.0-131.0); Non-African American GFR(CKD) 35.1 (60.0-200.0); Potassium 5.4 mmol/L (3.5-5.5); Sodium 143 mmol/L (135-145)
== END | disposition home or self-care (01) ==
LOC: LABWHC1 10:27
PROVIDERS: ATTEND Internal Medicine Interventional Cardiology
DX: E78.2 Mixed hyperlipidemia (principal)
CPT/HCPCS: 36415; 80053; 80061